=== PATIENT | female | born 1970 | race Caucasian/White ===

== ENCOUNTER → 2018-07-03 11:26 | Outpatient (CLI) | payer OTHER, SELFPAY ==
[2018-07-03 12:54] LABS: Erythrocyte Sedimentation Rate 7 MM/HR (0-20)
[2018-07-09 14:53] LABS: Rapid Plasma Reagin NON REACTIVE
[2018-07-23 13:01] LABS: Vit B12 Binding Capacity unsat 939 pg/mL (650-1340)
== END ==
PROVIDERS: PCP Family Medicine; Visit Provider Specialist
DX: R41.89 Other symptoms and signs involving cognitive functions and awareness (principal)
CPT/HCPCS: 36415; 82608; 85651; 86592

== ENCOUNTER → 2018-07-25 15:00 | Outpatient (CLI) | payer OTHER, SELFPAY | PROVIDERS: Family Provider Physical Medicine & Rehabilitation; PCP Family Medicine | DX: Z23 Encounter for immunization (principal) | CPT/HCPCS: 90471; 90686 ==

== ENCOUNTER → 2018-08-14 06:01 | Outpatient (CLI) | payer OTHER, SELFPAY ==
--- NOTE | 2018-08-14 06:06 | DI.RAD.S_ITS ---
PROCEDURE: XR CERVICAL SPINE 4V OR 5V INDICATIONS: Lumbar spondylolisthesis TECHNIQUE: 5 views of the cervical spine acquired. COMPARISON: [facility], MR, MR CERVICAL SPINE WO CON, 08/14/2018, 6:33. FINDINGS: Bones: No fractures or dislocations to the C7-T1 level. Oblique images demonstrate no bony foraminal stenoses. There is straightening of normal cervical curvature. Minimal disc space narrowing is present at C5-6. Right-sided foramina are patent. Left side is not well evaluated secondary to positioning. Soft tissues: No prevertebral soft tissue swelling. IMPRESSION: Straightening of normal cervical curvature with minimal degenerative change. Limited evaluation of the left neural foramina as above. Please see MR cervical spine report of 08/14/18 for further evaluation. Dictated by: Shara Carrasquillo M.D. on 08/14/2018 at 10:05 Approved by: Shara Carrasquillo M.D. on 08/14/2018 at 10:12
--- NOTE | 2018-08-14 06:06 | DI.RAD.S_ITS ---
PROCEDURE: XR LUMBAR SPINE MIN 4V INDICATIONS: Lumbar spondylolisthesis TECHNIQUE: 5 views of the lumbar spine acquired. COMPARISON: [facility], , L-SPINE 2-3 VIEWS, 12/19/2016, 9:12. FINDINGS: Bones: 5 nonrib-bearing vertebrae are present. There is trace retrolisthesis of L1 on L2, L2 and L3, L3 on L4, L4 on L5. There is a 3 mm anterior listhesis of L5 on S1 with pars defect. There is moderate disc space narrowing at L5-S1 as well as foraminal narrowing. No vertebral body compression fractures. No suspicious bony lesions. Soft tissues: Overlying bowel gas pattern is normal. No suspicious soft tissue calcifications. Flexion/extension: There is normal range of motion, with preserved normal alignment. IMPRESSION: Anterolithesis secondary to pars defect at L5 with disc and foraminal narrowing. Dictated by: Shara Carrasquillo M.D. on 08/14/2018 at 10:16 Approved by: Shara Carrasquillo M.D. on 08/14/2018 at 10:26
--- NOTE | 2018-08-14 06:06 | DI.MRI.S_ITS ---
PROCEDURE: MR CERVICAL SPINE WO CON INDICATIONS: Lumbar spondylolisthesis TECHNIQUE: Noncontrast sagittal T1 spin echo and T2 fast spin echo, sagittal STIR, foraminal oblique sagittal T2 fast spin echo, and axial gradient echo or T2 fast spin echo through the cervical spine. COMPARISON: [facility], CR, XR CERVICAL SPINE 4V OR 5V, 08/14/2018, 7:08. FINDINGS: Image quality: Excellent. Alignment and Curvature: There is normal bony alignment. There is straightening of normal cervical spine curvature. Bone Marrow: Marrow demonstrates normal overall signal. Spinal Cord: Visualized spinal cord has normal size and signal. No cerebellar tonsillar herniation. Paraspinous Soft Tissues: No paravertebral masses. Prevertebral soft tissues are normal in thickness. C2-C3: Normal appearance. C3-C4: Normal appearance. C4-C5: Normal appearance. C5-C6: Slight loss of disc signal. Minimal, diffuse disc bulge. No central stenosis. No neural foraminal narrowing. No neural impingement. C6-C7: Loss of disc signal. Mild loss of disc height. Moderate, diffuse disc bulge. Mild narrowing of the central canal. No neural foraminal narrowing. No neural impingement. C7-T1: Normal appearance. IMPRESSION: 1. Mild to moderate C6-C7 degenerative changes. Mild C5-C6 degenerative disc changes. 2. Mild C6-C7 central canal narrowing. 3. No neural foraminal narrowing. 4. No neural impingement. Dictated by: Leda Florian MD, PhD on 08/14/2018 at 10:18 Approved by: Leda Florian MD, PhD on 08/14/2018 at 10:29
--- NOTE | 2018-08-14 06:06 | DI.MRI.S_ITS ---
PROCEDURE: MR LUMBAR SPINE WO CON INDICATIONS: Lumbar spondylolisthesis TECHNIQUE: Noncontrast sagittal T1 spin echo and T2 fast echo, sagittal STIR, axial T1 and T2 fast spin echo through the lumbar spine. In cases with scoliosis, additional coronal T2 fast spin echo may be performed. COMPARISON: [facility], MR, L-SPINE WITHOUT CONTRAST, 06/27/2015, 17:42. [facility], CR, XR LUMBAR SPINE MIN 4V, 08/14/2018, 7:12. FINDINGS: Image quality: Excellent. Alignment and Curvature: There is trace L5-S1 anterolisthesis secondary to bilateral L5 pars interarticularis defects. Bone Marrow: Marrow is of normal overall signal. No acute vertebral body compression fractures. Spinal Cord: Conus medullaris terminates at the L1 level. Visualized cord demonstrates normal signal and size. Paraspinous Soft Tissues: No paravertebral masses. L1-L2: Slight loss of disc signal. Minimal, diffuse disc bulge. No central stenosis. No neural foraminal narrowing. No neural impingement. Focal high intensity zone within the posterior annulus compatible with a fissure. L2-L3: Normal appearance. L3-L4: Normal appearance. L4-L5: Loss of disc signal. Mild, diffuse disc bulge. Mild bilateral facet hypertrophy. No central stenosis. No neural foraminal narrowing. No neural impingement. Focal high intensity zone within the posterior annulus compatible with a fissure. L5-S1: Loss of disc signal. Minimal, diffuse disc bulge. Mild bilateral facet hypertrophy. No central stenosis. No neural foraminal narrowing. No neural impingement. Focal high intensity zone noted in the posterior annulus compatible with a fissure. IMPRESSION: 1. Trace L5-S1 isthmic spondylolisthesis. 2. Mild multilevel degenerative disc disease. 3. Mild multilevel facet arthropathy. 4. No central stenosis. 5. No neural foraminal narrowing. 6. No neural impingement. 7. L1-L2, L4-L5 and L5-S1 disc annulus fissures. Dictated by: Leda Florian MD, PhD on 08/14/2018 at 10:32 Approved by: Leda Florian MD, PhD on 08/14/2018 at 10:37
== END ==
PROVIDERS: Family Provider Family Medicine; PCP Family Medicine; Visit Provider Physical Medicine & Rehabilitation
DX: M43.16 Spondylolisthesis, lumbar region (principal); M50.322 Other cervical disc degeneration at C5-C6 level; M48.02 Spinal stenosis, cervical region; M51.36 Other intervertebral disc degeneration, lumbar region; M47.16 Other spondylosis with myelopathy, lumbar region; M48.07 Spinal stenosis, lumbosacral region
CPT/HCPCS: 72050; 72110; 72141; 72148

== ENCOUNTER → 2018-08-15 07:40 | Outpatient (CLI) | payer OTHER, SELFPAY ==
[2018-08-15 08:51] LABS: Erythrocyte Sedimentation Rate 13 MM/HR (0-20)
[2018-08-15 09:27] LABS: Cholesterol 119 mg/dL (140-199); HDL Cholesterol 43 mg/dL (40-60); LDL Cholesterol Calculated 52 mg/dL (<100); Triglycerides 120 mg/dL (35-150)
[2018-08-15 09:29] LABS: C-Reactive Protein Quant 1.7 mg/dL (<1.0)
[2018-08-15 09:32] LABS: Rheumatoid Factor < 8.6 IU/mL (<12.0)
[2018-08-15 09:42] LABS: Free T3, Triiodothyronine Free 3.46 pg/mL (2.77-5.27); Vitamin D 25 Hydroxy (D3) 48.1 ng/mL (30.0-100.0)
[2018-08-15 09:59] LABS: TSH w/ Reflex to FT4 0.05 uIU/mL (0.47-4.68)
[2018-08-15 10:26] LABS: Free T4, Direct Thyroxine 1.05 ng/dL (0.78-2.19)
[2018-08-17 18:38] LABS: ANA Screen, IFA Negative (Negative)
== END ==
PROVIDERS: Family Provider Physical Medicine & Rehabilitation; PCP Family Medicine; Visit Provider Family Medicine
DX: G43.719 Chronic migraine without aura, intractable, without status migrainosus (principal); M25.50 Pain in unspecified joint; M47.16 Other spondylosis with myelopathy, lumbar region; E03.9 Hypothyroidism, unspecified; E78.5 Hyperlipidemia, unspecified
CPT/HCPCS: 36415; 80061; 82306; 84439; 84443; 84481; 85651; 86038; 86140; 86430

== ENCOUNTER → 2018-09-03 09:04 | Outpatient (CLI) | payer OTHER, SELFPAY ==
--- NOTE | 2018-09-03 | DI.MG.S_ITS ---
BILATERAL DIGITAL SCREENING MAMMOGRAM 3D/2D WITH CAD: 09/03/2018 CLINICAL: Routine screening. Family history of breast cancer. Comparison is made to exams dated: 07/26/2017 mammogram, 07/10/2016 mammogram, and 01/13/2015 mammogram - [facility]. The tissue of both breasts is heterogeneously dense. This may lower the sensitivity of mammography. Current study was also evaluated with a Computer Aided Detection (CAD) system. No significant masses, calcifications, or other findings are seen in either breast. There has been no significant interval change. IMPRESSION: NEGATIVE There is no mammographic evidence of malignancy. A 1 year screening mammogram is recommended. This exam was interpreted at Station ID: [id number]. NOTE: For mammograms, a report in lay terms will be sent to the patient. Approximately 15% of breast malignancies will not be visualized mammographically. In the management of a palpable breast mass, a negative mammogram must not discourage biopsy of a clinically suspicious lesion. Electronically Signed By: Ama perry/sarai:09/03/2018 10:58:46 letter sent: Normal Exam ACR BI-RADS Category 1: Negative [id number]
== END ==
PROVIDERS: Family Provider Physical Medicine & Rehabilitation; PCP Family Medicine; Visit Provider Family Medicine
DX: Z80.3 Family history of malignant neoplasm of breast (principal)
CPT/HCPCS: 77063; 77067

== ENCOUNTER → 2018-11-20 14:57 | Outpatient (CLI) | payer OTHER, SELFPAY ==
--- NOTE | 2018-11-20 14:59 | DI.RAD.S_ITS ---
PROCEDURE: XR SHOULDER RT MIN 2V INDICATIONS: chan TECHNIQUE: 3 views of the shoulder were acquired. COMPARISON: None. FINDINGS: Bones: No fractures or dislocations. Moderate AC joint degeneration. Minimal glenohumeral spurring No suspicious bony lesions. Visualized ribs appear intact. Soft tissues: No suspicious soft tissue calcifications. IMPRESSION: Right shoulder joint degeneration as above. Dictated by: Sergio Reinoso M.D. on 11/20/2018 at 16:22 Approved by: Sergio Reinoso M.D. on 11/20/2018 at 16:23
--- NOTE | 2018-11-20 14:59 | DI.RAD.S_ITS ---
PROCEDURE: XR SHOULDER LT MIN 2V INDICATIONS: chan TECHNIQUE: 3 views of the shoulder were acquired. COMPARISON: [facility], CR, XR SHOULDER RT MIN 2V, 11/20/2018, 14:59. FINDINGS: Bones: No fractures or dislocations. No suspicious bony lesions. Visualized ribs appear intact. Mild AC and glenohumeral joints degeneration Soft tissues: No suspicious soft tissue calcifications. IMPRESSION: Mild left shoulder joint degeneration. Dictated by: Sergio Reinoso M.D. on 11/20/2018 at 16:24 Approved by: Sergio Reinoso M.D. on 11/20/2018 at 16:25
[2018-11-20 16:23] LABS: Thyroid Stimulating Hormone 0.02 uIU/mL (0.47-4.68)
== END ==
PROVIDERS: Family Provider Physical Medicine & Rehabilitation; PCP Family Medicine; Visit Provider Family Medicine
DX: M25.511 Pain in right shoulder (principal); M25.512 Pain in left shoulder; M19.011 Primary osteoarthritis, right shoulder; M19.012 Primary osteoarthritis, left shoulder; E03.9 Hypothyroidism, unspecified
CPT/HCPCS: 36415; 73030; 84443

== ENCOUNTER → 2019-01-29 10:44 | Outpatient (CLI) | payer OTHER, SELFPAY ==
[2019-01-29 13:02] LABS: Thyroid Stimulating Hormone 0.08 uIU/mL (0.47-4.68)
== END ==
PROVIDERS: Family Provider Psychiatry & Neurology Psychiatry; PCP Family Medicine; Visit Provider Family Medicine
DX: Z86.39 Personal history of other endocrine, nutritional and metabolic disease (principal)
CPT/HCPCS: 36415; 84443

== ENCOUNTER 2019-03-11 14:05 | Outpatient (CLI) | payer OTHER, SELFPAY ==
[2019-03-11] VITALS (9 sets, daily range): BP systolic 128–146; BP diastolic 70–90; PULSE 93–103; RESP 16–20; TEMP 36.4; O2SAT 95–98
--- NOTE | 2019-03-11 14:06 | DI.RAD.S_ITS ---
PROCEDURE: PAIN L/S FACET INJ/BLK 1ST SHERRY COMPARISON: None. INDICATIONS: SPONDYLOSIS Fluoroscopic spot filming was performed to verify placement of spinal needles at the L4-L5 and L5-S1 level(s), as labeled on the films. Appropriate location(s) of the needle tip(s) was confirmed by injection of iodinated contrast. Dictated by: Sergio Reinoso M.D. on 03/11/2019 at 16:16 Approved by: Sergio Reinoso M.D. on 03/11/2019 at 16:16
[2019-03-11] MEDS: MIDAZOLAM 5 MG/5 ML VIAL IV (15:27)
[2019-03-11] MEDS: fentaNYL 100 MCG/2 ML INJ 50 MCG IV (15:27)
[2019-03-11] MEDS: LIDOCAINE 1% 20 ML INJ 10 ML INJ (15:38)
[2019-03-11] MEDS: BETAMETHASONE 30 MG/5 ML MDV 12 MG INJ (15:38)
[2019-03-11] MEDS: BUPIVACAINE 0.5% (PF) VIAL 2 ML INJ (15:38)
--- NOTE | 2019-03-11 15:43 | PC.NURSE ---
ASSISTING PT OFF TABLE AND TRANSPORTING TO POST PROC AREA IN STABLE CONDITION
--- NOTE | 2019-03-11 15:52 | P.PCN_ITS ---
Procedures Date/Time Date of procedure: 03/11/19 Time of procedure: 15:50 General Procedure description: PREOP DIAGNOSIS 1. FACET ARTHROPATHY 2. AXIAL LBP 3. MULTILEVEL DDD POST OP DIAGNOSIS 1. FACET ARTHROPATHY 2. AXIAL LBP 3. MULTILEVEL DDD PROCEDURES 1. FLUORSCOPICALLY GUIDED CONTRAST CONTROLLED FACET JOINT INJECTIONS BILATERAL L4/5, L5/S1 PHYSICIAN: Ezequiel Leavitt, DO MAJOR Lilli is referred by Dr. Newsome for treatment of Axial LBP FINDINGS Multilevel Facet Arthropathy with Clinically significant axial LBP DESCRIPTION OF PROCEDURE Fluoroscopically guided, contrast-controlled bilateral L4/5, L5/S1 facet joint injections. Following denial of allergy and review of potential side effects and complications, including, but not necessarily limited to, infection, allergic reaction, local tissue breakdown, stroke, temporary or permanent nerve injury, paralysis, and possible , the patient indicated that the patient understood and agreed to proceed. An informed consent document was signed by the patient, witnessed by a nurse, and placed in the patient's chart. Additionally, other treatment options including medications, modalities, and physical therapy were reviewed with the patient. After review of previous anaesthesic history and IV conscious sedation the patient was deemed safe to proceed with todays procedure with IV conscious sedation as ASA class II designation. Safety time-out was performed to confirm patient ID, procedure to be performed and site of procedure. IV sedation was accomplished with a combination of 5mg of Versed and Fentanyl was administered by the RN after DO order, titrated to patient comfort during the course of the procedure while the patient remained responsive to all verbal commands In the prone position, following sterile prep and drape of the lumbar region, the posterior aspect of the L4/5, L5/S1 facet joints were identified fluoroscopically. The skin was anesthetized via a 25-gauge 1.5-inch needle with 1% lidocaine solution into the corresponding facet joints. At this point, a 22- gauge 3.5-inch spinal needle was atraumatically introduced and advanced under fluoroscopic guidance into the corresponding facet joints. Following negative aspiration, injections of approximately 0.2-cc of Isovue 200 confirmed interarticular placement without vascular uptake. The identical procedure was then performed at the L4/5, L5/S1 facet joints on the left. Radiological data, including multiple fluoroscopic views of the lumbosacral spine, reveal a spinal needle at the L4/5, L5/S1 facet joints bilaterally. Subsequent views show flow of contrast material both superiorly and inferiorly within the joint space without vascular or intrathecal uptake. At this point, a total of 0.5 cc including a mixture of 0.25cc Marcaine and 0.25cc betamethasone was injected without complication into each of the corresponding facet joints. The patient tolerated the procedure well without signs or symptoms of complications prior to transfer to the recovery area continued monitoring without incident. The patient was then transferred to the recovery area where they were observed for an appropriate period of time after the injection. The patient reported a VAS score of 7 prior to the procedure and a post- procedure VAS of 0. Total Fluoroscopy Time: 20.3 seconds Total Conscious Sedation Time: 24min POST OP INSTRUCTIONS The patient was provided a Pain Log to continue to record their response to the target-specific procedure prior to follow-up visit with their referring physician. Additionally, specific post-injection care instructions and a contact number to our office were provided if concerns arise regarding possible complications associated with the procedure are suspected. Ezequiel Leavitt DO Complications: none
--- NOTE | 2019-03-11 16:15 | PC.NURSE ---
Pt returned from post procedure awake and alert. Pt able to transfer self from W/C to chair with standby assist. Resumed monitoring from Anusha [facility].
== END 2019-03-11 16:15 ==
LOC: RAD 14:05
PROVIDERS: Family Provider Physical Medicine & Rehabilitation; PCP Family Medicine; Visit Provider Physical Medicine & Rehabilitation
DX: M47.817 Spondylosis without myelopathy or radiculopathy, lumbosacral region (principal); M47.816 Spondylosis without myelopathy or radiculopathy, lumbar region; M54.5 Low back pain; M51.36 Other intervertebral disc degeneration, lumbar region; M51.37 Other intervertebral disc degeneration, lumbosacral region
CPT/HCPCS: 64493; 64494; 99152; J0702; J2250; J3010

== ENCOUNTER → 2019-04-15 10:36 | Outpatient (CLI) | payer OTHER, SELFPAY ==
[2019-04-15 11:06] LABS: Add Manual Diff / Slide Review NO; Basophils Absolute Auto 100 /uL (0-100); Basophils Percent Auto 1.3 % (0-2); Eosinophils Absolute Auto 800 /uL (0-450); Eosinophils Percent Auto 8.1 % (2-4); Hematocrit 37.7 % (36-46); Lymphocytes Absolute Auto 3700 /uL (1100-4500); Lymphocytes Percent Auto 38.5 % (25-40); Mean Corpuscular HGB Conc 34.4 % (30-36); Mean Corpuscular Hemoglobin 29.2 PG (26-34); Mean Corpuscular Volume 85.1 fL (80-100); Monocytes Absolute Auto 700 /uL (0-900); Monocytes Percent Auto 7.7 % (3-14); Neutrophils Absolute Auto 4200 /uL (1500-7000); Neutrophils Percent Auto 44.4 % (50-75); Platelet Count 326 X10^3/uL (150-400); Red Blood Cell Count 4.44 X10^6/uL (4.0-5.2); Red Cell Distribution Width 13.5 % (11.6-14.8); White Blood Cell Count 9.5 X10^3/uL (4.5-11.0)
[2019-04-15 11:44] LABS: Free T3, Triiodothyronine Free 3.88 pg/mL (2.77-5.27); Free T4, Direct Thyroxine 1.25 ng/dL (0.78-2.19)
[2019-04-15 11:58] LABS: Thyroid Stimulating Hormone 2.25 uIU/mL (0.47-4.68)
== END ==
PROVIDERS: PCP Family Medicine; Visit Provider Family Medicine
DX: E03.9 Hypothyroidism, unspecified (principal)
CPT/HCPCS: 36415; 84439; 84443; 84481; 85025

== ENCOUNTER 2019-07-13 10:00 | Outpatient (RCR) | payer OTHER, SELFPAY ==
--- NOTE | 2018-10-23 15:54 | PT.OIE ---
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) ADHD (attention deficit hyperactivity disorder) (Chronic 09/05/05) Acne (Chronic 1982) Allergic rhinitis (Chronic) Bipolar disorder (Chronic 01/01/06) Chronic back pain (Chronic 1987) Chronic headaches (Chronic) Female hypogonadism (Chronic) GERD (gastroesophageal reflux disease) (Chronic) Hayfever (Chronic) Hypothyroidism (Chronic 06/19/07) Low testosterone level in female (Chronic 10/15/07) Lumbar spine pain (Chronic) Recurrent sinusitis (Chronic) Rosacea (Chronic 2000) Urinary incontinence (Chronic) Anemia (Resolved) Chicken pox (Resolved 1975) Colon polyps (Resolved 01/11/11) Fibroids (Resolved) History of heavy periods (Resolved) Irregular periods/menstrual cycles (Resolved) Painful menstrual periods (Resolved) Pancreatitis (Resolved) Sleep apnea (Resolved 08/12/97) Throat infection (Resolved) Past Surgical History (Last Reviewed 09/18/18 @ 08:56 by Maldonado Ashraf PA-C) Anesthesia complication (Resolved) History of oral surgery (Resolved) History of stress incontinence procedure using tension free vaginal tape (Resolved 04/2006) Status post colonoscopy (Resolved) Status post laparoscopy (Resolved 09/16/00) Status post tonsillectomy and adenoidectomy (Resolved 10/18/03) Status post vaginal hysterectomy (Resolved 07/2005) Provider Visit Care Team Role Provider Type Ga Newsome MD Primary Care Provider Physician Specialty: Family Practice Address: [address] [place] [address], [id number] Email: [email or web address] Ezequiel Leavitt DO Attending Provider Physician Family Provider Specialty: Physiatry Pain Management Address: [address] [place] [address], [id number] Email: Physical Therapy Initial Evaluation PT-OP-A Visit Information Start: 10/21/18 21:14 Freq: Status: Active Protocol: Document 10/23/18 08:15 LRN (Rec: 10/23/18 09:09 LRN [id number]) Out-Patient Physical Therapy Visit Information Visit Information Visit Type Initial Evaluation Visit Start Time 08:15 Visit Stop Time 09:09 Total Visit Minutes 54 Visit Number 1 Number of RAILROAD INSPECTOR Visits 0 Evaluation Information Evaluation Date 10/23/18 Precautions Precautions Lifting restriction is #25 post bladder surgery (repeat bladder sling surgery) until . Bipolar/ADD. PT-OP-B Current Condition Start: 10/21/18 21:14 Freq: Status: Active Protocol: Document 10/23/18 08:15 LRN (Rec: 10/23/18 09:09 LRN [id number]) Current Condition History of Current Condition Onset Date 2 yrs ago Current Complaints Pain along the full back, especially R side in LB, and feet plantar. History of Current Condition Back pain off/on due to accidents in childhood. Has had injections in the back for the past 5 yrs with good results, but the last one was 2 yrs ago and wasn't helpful. Was carrying a sick girl up stairs (#90) and tweeked her back. She sought an injection then, but was told she had to do therapy before receiving another injection. Pain in feet throbbing. Prior Treatments and Tests Cortisone injections. Massage every 3-4 weeks, accupuncture . Heating pad every morning and sleeps on heating pad, hot tub, NSAIDs, Vicodine when really bad. Massage monthly and accupuncture when affordable. PRIOR RECORD REVIEW: Lumbosacral spondylosis with myelopathy, Lumbar Facet arthropathy, Cervical spondylosis, HNP - Cervical. Future Testing and Treatments Planned Would like to go to chiropractor. Treatment Goals Patient/Caregiver Goals Pt Goals: Strengthen core around areas damaged or hurt. Learn proper body mechanics. Eliminate the sharp shooting pain. Don't want to have to change life because of the pain. Wants to go to bed because tired, not hurt. Pain rated 1-2/10. 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 Baseline Function- Recreation/Hobbies Walked trails with friends. Current Functional Impairments (Reported) Functional Limitations- ADL's Independent. Must sit to put socks on and lean against shower to wash bottoms of feet . Functional Limitations- Recreation/ Can no longer walk trails Hobbies because of back pain and out of shape (SOB). 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 PT-OP-C Subjective Start: 10/21/18 21:14 Freq: Status: Active Protocol: Document 10/23/18 08:15 LRN (Rec: 10/23/18 09:09 LRN [id number]) Patient Questionnaires Oswestry Low Back Index Oswestry Score 19/50 Oswestry Impairment 20 to 39% Impaired (Score 20- 39) OP-PT Pain Assessment Pain Assessment Grid Paper Pain Assessment Grid Completed Yes Home Pain Medication Use Pain Medications Used Yes Home Pain Medication Frequency prn Comments Pain Comments Upper back pain rated 3/10 chronic, constant throbbing ache except when shoulders catch it is sharp. Mid back pain is rated 2-3/10 intermittent ache. Low back is rated 4-5/10 constant ache on the left, sharp throbbing on the right. Periodically radiates into the buttock and right posterior thigh. Has radiated 2x down the left when it was really bad. PT-OP-F Manual Assessment Start: 10/21/18 21:14 Freq: Status: Active Protocol: Document 10/23/18 08:15 LRN (Rec: 10/23/18 15:03 LRN [id number]) Manual Assessments Soft Tissue Assessment Soft Tissue Mobility Assessment Increased tension in area of R paraspinals of L1-L5. Umbilicus shifted right. Joint Mobility Assessment Joint Mobility Assessment Pain with PA mild pressure at spinous processes of entire cervical, thoracic and lumbar spine in the area of T3-T5 and L1-L5 with greatest tenderness at T5 & L3. PT-OP-H Neuro Start: 10/21/18 21:14 Freq: Status: Active Protocol: Document 10/23/18 08:15 LRN (Rec: 10/23/18 15:03 LRN [id number]) Sensation Evaluation Gross Sensation Gross Sensation WNL PT-OP-J Posture/Palpation/Skin Start: 10/21/18 21:14 Freq: Status: Active Protocol: Document 10/23/18 08:15 LRN (Rec: 10/23/18 15:03 LRN [id number]) Posture Evaluation Darrell Postural Classification System Darrell Postural Classifications Anterior/Posterior Vertebral Compression Test 2 Elbow Flexion Test 2 Comments Posture Comments Standing Posture: L shoulder and scapula elevated; reverse curvature at T3-T7, increased lordosis, R PSIS low, R ASIS high (R innominate posteriorly rotated). PT-OP-K Range of Motion Start: 10/21/18 21:14 Freq: Status: Active Protocol: Document 10/23/18 08:15 LRN (Rec: 10/23/18 15:03 LRN [id number]) Cervical Spine Range of Motion Cervical Spine Active Degrees Testing Position Sitting Flexion 56 Extension 45 Rotation Left 65 Rotation Right 50 Lumbar Spine Range of Motion Lumbar Spine Active Degrees Testing Position Standing Flexion 15 Extension 5 Lateral Flexion Left 10 Lateral Flexion Right 15 ROM Limitations Pain Comments Flex/Ext above is painfree range. Flex AROM tolerated is 32 deg' s. Rotation approximated is 30 deg's left, 45 deg's right. PT-OP-M Strength Start: 10/21/18 21:14 Freq: Status: Active Protocol: Document 10/23/18 08:15 LRN (Rec: 10/23/18 15:03 LRN [id number]) Trunk Strength Trunk Manual Muscle Testing Comments Deferred until next visit due to pain. Hip Strength Hip Manual Muscle Testing Right Flexion (L2) 3 Fair Extension (S1) 3 Fair Comments Hip strength is 5/5 except as noted above Left Extension (S1) 3 Fair Comments Hip strength is 5/5 except as noted above Knee Strength Knee Manual Muscle Testing Right Comments Generally 5/5. Left Comments Generally 3/5. PT-OP-Q Treatments Start: 10/21/18 21:14 Freq: Status: Active Protocol: Document 10/23/18 08:15 LRN (Rec: 10/23/18 15:03 LRN [id number]) Self-Care/Home Management Treatment Education Patient Education Body Mechanics Pain Management Other Education Briefly discussed hip hinging and use of LE's for proper back care and body mechanics. Reviewed lifting limitations and proper lifting using legs and hinging at hip vs the back . Activities Self-Care/Home Management Activities I/S pt to try use of ice, then heat at home to see if one is better than other.and to start in an area of the spine PT-OP-T Assessment and Plan Start: 10/21/18 21:14 Freq: Status: Active Protocol: Document 10/23/18 08:15 LRN (Rec: 10/23/18 09:09 LRN [id number]) Physical Therapy Assessment Rehab Potential Rehabilitation Potential Good Evaluation Complexity Number of Personal Factors/Comorbidities 3 or More Number of Body Systems Impaired 3 Clinical Presentation at Evaluation Evolving Impairments Impairments Activity Tolerance Functional Activities Functional Mobility Pain Posture ROM Strength Other Concerns Age Related Concerns Effect on work and home life. Barriers to Rehabilitation Chronicity of condition. Psychological disorder (per pt : Bipolar, ADD) Goals Four Impairment Intermittent Mid back pain rated 2-3/10 Senior Living Goal (LTG) Decrease Mid back pain to 1-2/ 10 for tolerable pain prior to going to bed at night and for greater comfort in bed at night. LTG Duration 01/16/19 Three Impairment Constant Low Back Pain, rated 4-5/10, sharp-Right, ache-Left . Short Term Goal (STG) Initiate a self care DLS program. STG Duration 11/14/18 Senior Living Goal (LTG) Pt will be able to move functionally with minimal onset of R sharp stabbing pain and decreased overall pain by 50%. LTG Duration 12/26/18 Two Impairment Lacks proper body mechanics training Short Term Goal (STG) Pt will be educated in proper body mechanics for lifting, moving objects and functional activities. STG Duration 11/14/18 One Impairment Lack appropriate HEP Senior Living Goal (LTG) Pt will be independent on a self chcf program. LTG Duration 01/16/19 Assessment Summary Assessment Pt is a 47 year old female with chronic neck, midback and low back pain that has been in a state of exacerbation for the past 2 years. The pt is receiving therapy in hopes of not needing another cortisone injection. 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 She presents with significant postural changes and soft tissue dysfunction as well as generalized decreased in strength and poor core stability. Her pain was reproduced with PA pressure at L3 indicating mechanical involvement of the lumbar spine. See history of current condition for problem list. Pt will benefit from some of her therapy time in aquatic therapy as well as land therapy. The pt will benefit from skilled physical therapy to improve mobility, improve strength and function with less pain, manual therapy and modalities for pain management , and education in proper body mechanics, functional mobility, and a home program. Physical Therapy Plan Frequency and Duration Frequency of Treatment 2x/Week Plan of Care Start Date 10/23/18 Plan of Care End Date 01/16/19 Therapeutic Interventions Therapeutic Interventions Aquatic Therapy Balance Training Home Exercise Program Joint Mobilizations Manual Therapy Neuromuscular Re-education Patient/Caregiver Education Self-Care/Home Management Soft Tissue Mobilization Taping Therapeutic Activities Therapeutic Exercises Modalities Cold Pack/Ice Massage Electric Stimulation Hot Packs Ultrasound Other Therapeutic Interventions Laser therapy Next Visit Focus/Plan Next Note Type Treatment Note Next Visit Plan Body mechanics training ( lifting, moving objects, functional activities), progress onto a core strengthening (DLS) program and end with manual therapy and modalities to decreased pain.
--- NOTE | 2018-10-23 15:54 | PT.OPPOC ---
Current Diagnoses Other spondylosis with myelopathy, lumbar region (10/23/18) Spondylosis without myelopathy or radiculopathy, cervical region (10/23/18) Spondylosis without myelopathy or radiculopathy, lumbar region (10/23/18) Spondylosis without myelopathy or radiculopathy, lumbosacral region (10/23/18) Other cervical disc displacement, unspecified cervical region (10/23/18) Provider Visit Care Team Role Provider Type Ga Newsome MD Primary Care Provider Physician Specialty: Family Practice Address: [address] [place] [id number] Email: [email or web address] Ezequiel Leavitt DO Attending Provider Physician Family Provider Specialty: Physiatry Pain Management Address: [address] [place] [address], [id number] Email: Plan Of Care PT-OP-T Assessment and Plan Start: 10/21/18 21:14 Freq: Status: Active Protocol: Document 10/23/18 08:15 LRN (Rec: 10/23/18 09:09 LRN [id number]) Physical Therapy Assessment Rehab Potential Rehabilitation Potential Good Evaluation Complexity Number of Personal Factors/Comorbidities 3 or More Number of Body Systems Impaired 3 Clinical Presentation at Evaluation Evolving Impairments Impairments Activity Tolerance Functional Activities Functional Mobility Pain Posture ROM Strength Other Concerns Age Related Concerns Effect on work and home life. Barriers to Rehabilitation Chronicity of condition. Psychological disorder (per pt : Bipolar, ADD) Goals Four Impairment Intermittent Mid back pain rated 2-3/10 Assisted Goal (LTG) Decrease Mid back pain to 1-2/ 10 for tolerable pain prior to going to bed at night and for greater comfort in bed at night. LTG Duration 01/16/19 Three Impairment Constant Low Back Pain, rated 4-5/10, sharp-Right, ache-Left . Short Term Goal (STG) Initiate a self care DLS program. STG Duration 11/14/18 Assisted Goal (LTG) Pt will be able to move functionally with minimal onset of R sharp stabbing pain and decreased overall pain by 50%. LTG Duration 12/26/18 Two Impairment Lacks proper body mechanics training Short Term Goal (STG) Pt will be educated in proper body mechanics for lifting, moving objects and functional activities. STG Duration 11/14/18 One Impairment Lack appropriate HEP Assisted Goal (LTG) Pt will be independent on a self jail program. LTG Duration 01/16/19 Assessment Summary Assessment Pt is a 47 year old female with chronic neck, midback and low back pain that has been in a state of exacerbation for the past 2 years. The pt is receiving therapy in hopes of not needing another cortisone injection. 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 She presents with significant postural changes and soft tissue dysfunction as well as generalized decreased in strength and poor core stability. Her pain was reproduced with PA pressure at L3 indicating mechanical involvement of the lumbar spine. See history of current condition for problem list. Pt will benefit from some of her therapy time in aquatic therapy as well as land therapy. The pt will benefit from skilled physical therapy to improve mobility, improve strength and function with less pain, manual therapy and modalities for pain management , and education in proper body mechanics, functional mobility, and a home program. Physical Therapy Plan Frequency and Duration Frequency of Treatment 2x/Week Plan of Care Start Date 10/23/18 Plan of Care End Date 01/16/19 Therapeutic Interventions Therapeutic Interventions Aquatic Therapy Balance Training Home Exercise Program Joint Mobilizations Manual Therapy Neuromuscular Re-education Patient/Caregiver Education Self-Care/Home Management Soft Tissue Mobilization Taping Therapeutic Activities Therapeutic Exercises Modalities Cold Pack/Ice Massage Electric Stimulation Hot Packs Ultrasound Other Therapeutic Interventions Laser therapy Next Visit Focus/Plan Next Note Type Treatment Note Next Visit Plan Body mechanics training ( lifting, moving objects, functional activities), progress onto a core strengthening (DLS) program and end with manual therapy and modalities to decreased pain. Plan of Care Dates Plan of Care Start Date 10/23/18 Plan of Care End Date 01/16/19 Please Sign and Return: I have reviewed this Plan of Care and certify that the skilled therapy services above are required to meet the patient?s needs. Physician Signature Date Printed Name and Credentials Clinical Instructor Signature Printed Name and Credentials
--- NOTE | 2018-11-19 10:40 | PT.OTN ---
Current Diagnoses Other spondylosis with myelopathy, lumbar region (11/18/18) Spondylosis without myelopathy or radiculopathy, cervical region (11/18/18) Spondylosis without myelopathy or radiculopathy, lumbar region (11/18/18) Spondylosis without myelopathy or radiculopathy, lumbosacral region (11/18/18) Other cervical disc displacement, unspecified cervical region (11/18/18) Physical Therapy Treatment Note PT-OP-A Visit Information Start: 10/21/18 21:14 Freq: Status: Active Protocol: Document 11/18/18 13:45 AMH (Rec: 11/19/18 10:38 AMH [email or web address]) Out-Patient Physical Therapy Visit Information Visit Information Visit Type Treatment Note Visit Start Time 13:45 Visit Stop Time 14:30 Total Visit Minutes 45 Visit Number 2 Number of TUBE MAN Visits 0 Evaluation Information Evaluation Date 10/23/18 PT-OP-B Current Condition Start: 10/21/18 21:14 Freq: Status: Active Protocol: Document 10/23/18 08:15 LRN (Rec: 10/23/18 09:09 LRN [id number]) Current Condition History of Current Condition Onset Date 2 yrs ago Current Complaints Pain along the full back, especially R side in LB, and feet plantar. History of Current Condition Back pain off/on due to accidents in childhood. Has had injections in the back for the past 5 yrs with good results, but the last one was 2 yrs ago and wasn't helpful. Was carrying a sick girl up stairs (#90) and tweeked her back. She sought an injection then, but was told she had to do therapy before receiving another injection. Pain in feet throbbing. Prior Treatments and Tests Cortisone injections. Massage every 3-4 weeks, accupuncture . Heating pad every morning and sleeps on heating pad, hot tub, NSAIDs, Vicodine when really bad. Massage monthly and accupuncture when affordable. PRIOR RECORD REVIEW: Lumbosacral spondylosis with myelopathy, Lumbar Facet arthropathy, Cervical spondylosis, HNP - Cervical. Future Testing and Treatments Planned Would like to go to chiropractor. Treatment Goals Patient/Caregiver Goals Pt Goals: Strengthen core around areas damaged or hurt. Learn proper body mechanics. Eliminate the sharp shooting pain. Don't want to have to change life because of the pain. Wants to go to bed because tired, not hurt. Pain rated 1-2/10. 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 Baseline Function- Recreation/Hobbies Walked trails with friends. Current Functional Impairments (Reported) Functional Limitations- ADL's Independent. Must sit to put socks on and lean against shower to wash bottoms of feet . Functional Limitations- Recreation/ Can no longer walk trails Hobbies because of back pain and out of shape (SOB). 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 PT-OP-C Subjective Start: 10/21/18 21:14 Freq: Status: Active Protocol: Document 11/18/18 13:45 AMH (Rec: 11/19/18 10:38 AMH [email or web address]) OP-PT Subjective Patient Comments Patient Comments Lilli reports no change in symptoms since her evaluation on 10/23/18 PT-OP-F Manual Assessment Start: 10/21/18 21:14 Freq: Status: Active Protocol: Document 10/23/18 08:15 LRN (Rec: 10/23/18 15:03 LRN [id number]) Manual Assessments Soft Tissue Assessment Soft Tissue Mobility Assessment Increased tension in area of R paraspinals of L1-L5. Umbilicus shifted right. Joint Mobility Assessment Joint Mobility Assessment Pain with PA mild pressure at spinous processes of entire cervical, thoracic and lumbar spine in the area of T3-T5 and L1-L5 with greatest tenderness at T5 & L3. PT-OP-H Neuro Start: 10/21/18 21:14 Freq: Status: Active Protocol: Document 10/23/18 08:15 LRN (Rec: 10/23/18 15:03 LRN [id number]) Sensation Evaluation Gross Sensation Gross Sensation WNL PT-OP-J Posture/Palpation/Skin Start: 10/21/18 21:14 Freq: Status: Active Protocol: Document 10/23/18 08:15 LRN (Rec: 10/23/18 15:03 LRN [id number]) Posture Evaluation Darrell Postural Classification System Darrell Postural Classifications Anterior/Posterior Vertebral Compression Test 2 Elbow Flexion Test 2 Comments Posture Comments Standing Posture: L shoulder and scapula elevated; reverse curvature at T3-T7, increased lordosis, R PSIS low, R ASIS high (R innominate posteriorly rotated). PT-OP-K Range of Motion Start: 10/21/18 21:14 Freq: Status: Active Protocol: Document 10/23/18 08:15 LRN (Rec: 10/23/18 15:03 LRN [id number]) Cervical Spine Range of Motion Cervical Spine Active Degrees Testing Position Sitting Flexion 56 Extension 45 Rotation Left 65 Rotation Right 50 Lumbar Spine Range of Motion Lumbar Spine Active Degrees Testing Position Standing Flexion 15 Extension 5 Lateral Flexion Left 10 Lateral Flexion Right 15 ROM Limitations Pain Comments Flex/Ext above is painfree range. Flex AROM tolerated is 32 deg' s. Rotation approximated is 30 deg's left, 45 deg's right. PT-OP-M Strength Start: 10/21/18 21:14 Freq: Status: Active Protocol: Document 10/23/18 08:15 LRN (Rec: 10/23/18 15:03 LRN [id number]) Trunk Strength Trunk Manual Muscle Testing Comments Deferred until next visit due to pain. Hip Strength Hip Manual Muscle Testing Right Flexion (L2) 3 Fair Extension (S1) 3 Fair Comments Hip strength is 5/5 except as noted above Left Extension (S1) 3 Fair Comments Hip strength is 5/5 except as noted above Knee Strength Knee Manual Muscle Testing Right Comments Generally 5/5. Left Comments Generally 3/5. PT-OP-Q Treatments Start: 10/21/18 21:14 Freq: Status: Active Protocol: Document 11/18/18 13:45 AMH (Rec: 11/19/18 10:38 AMH [email or web address]) Therapeutic Exercises Supine Exercises 2 Supine Exercise Name Transverse abdominal faciitation with marches 1 Supine Exercise Name stretches: SKTC, DKTC, Happy baby, hamstring stretch with strap, figure 4 Other Exercises 5 Other Exercise Name half kneeling hip flexor stretch 4 Other Exercise Name jillian pose 3 Other Exercise Name cat cow and wag the tail sidebends Reps/Minutes x 10 reps 2 Other Exercise Name quadraped TA with opposite arm lifts Reps/Minutes x 10 reps 1 Other Exercise Name quadraped TA facilitation Reps/Minutes x 10 reps with the breath Self-Care/Home Management Treatment Education Patient Education Home Exercise Program Other Education home exercise program given to patient (see chart) PT-OP-T Assessment and Plan Start: 10/21/18 21:14 Freq: Status: Active Protocol: Document 11/18/18 13:45 AMH (Rec: 11/19/18 10:38 AMH [email or web address]) Physical Therapy Assessment Assessment Summary Assessment MRI results pulled up that show mild multi level DDD, mild facet arthropathy, L1-2, L4-5, L5-S1 disc annulus fissures Lilli had not yet started on a home program so today we started her with basic stretches for her low back. I also began core stabilization which is very difficult for her as she has a difficult time recruiting her TA musculature. She tends to do better in a prone positions for TA recruitment Physical Therapy Plan Frequency and Duration Frequency of Treatment 2x/Week Plan of Care Start Date 10/23/18 Plan of Care End Date 01/16/19 Therapeutic Interventions Therapeutic Interventions Aquatic Therapy Balance Training Home Exercise Program Joint Mobilizations Manual Therapy Neuromuscular Re-education Patient/Caregiver Education Self-Care/Home Management Soft Tissue Mobilization Taping Therapeutic Activities Therapeutic Exercises Modalities Cold Pack/Ice Massage Electric Stimulation Hot Packs Ultrasound Other Therapeutic Interventions Laser therapy Next Visit Focus/Plan Next Note Type Treatment Note Next Visit Plan review HEP and progress stabilization as Lilli can tolerate
--- NOTE | 2018-11-26 11:02 | PT.OTN ---
Current Diagnoses Other spondylosis with myelopathy, lumbar region (11/26/18) Spondylosis without myelopathy or radiculopathy, cervical region (11/26/18) Spondylosis without myelopathy or radiculopathy, lumbar region (11/26/18) Spondylosis without myelopathy or radiculopathy, lumbosacral region (11/26/18) Other cervical disc displacement, unspecified cervical region (11/26/18) Physical Therapy Treatment Note PT-OP-A Visit Information Start: 10/21/18 21:14 Freq: Status: Active Protocol: Document 11/26/18 10:57 AMH (Rec: 11/26/18 11:02 AMH [email or web address]) Out-Patient Physical Therapy Visit Information Visit Information Visit Type Treatment Note Visit Start Time 09:00 Visit Stop Time 09:45 Total Visit Minutes 45 Visit Number 3 Number of PHOTOGRAPHER STILL Visits 0 PT-OP-B Current Condition Start: 10/21/18 21:14 Freq: Status: Active Protocol: Document 10/23/18 08:15 LRN (Rec: 10/23/18 09:09 LRN [id number]) Current Condition History of Current Condition Onset Date 2 yrs ago Current Complaints Pain along the full back, especially R side in LB, and feet plantar. History of Current Condition Back pain off/on due to accidents in childhood. Has had injections in the back for the past 5 yrs with good results, but the last one was 2 yrs ago and wasn't helpful. Was carrying a sick girl up stairs (#90) and tweeked her back. She sought an injection then, but was told she had to do therapy before receiving another injection. Pain in feet throbbing. Prior Treatments and Tests Cortisone injections. Massage every 3-4 weeks, accupuncture . Heating pad every morning and sleeps on heating pad, hot tub, NSAIDs, Vicodine when really bad. Massage monthly and accupuncture when affordable. PRIOR RECORD REVIEW: Lumbosacral spondylosis with myelopathy, Lumbar Facet arthropathy, Cervical spondylosis, HNP - Cervical. Future Testing and Treatments Planned Would like to go to chiropractor. Treatment Goals Patient/Caregiver Goals Pt Goals: Strengthen core around areas damaged or hurt. Learn proper body mechanics. Eliminate the sharp shooting pain. Don't want to have to change life because of the pain. Wants to go to bed because tired, not hurt. Pain rated 1-2/10. 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 Baseline Function- Recreation/Hobbies Walked trails with friends. Current Functional Impairments (Reported) Functional Limitations- ADL's Independent. Must sit to put socks on and lean against shower to wash bottoms of feet . Functional Limitations- Recreation/ Can no longer walk trails Hobbies because of back pain and out of shape (SOB). 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 PT-OP-C Subjective Start: 10/21/18 21:14 Freq: Status: Active Protocol: Document 11/26/18 10:57 AMH (Rec: 11/26/18 11:02 AMH [email or web address]) OP-PT Subjective Patient Comments Patient Comments pt reports she has been working on her stretches in bed. She notes she has a referral for her shoulder as well. PT-OP-F Manual Assessment Start: 10/21/18 21:14 Freq: Status: Active Protocol: Document 10/23/18 08:15 LRN (Rec: 10/23/18 15:03 LRN [id number]) Manual Assessments Soft Tissue Assessment Soft Tissue Mobility Assessment Increased tension in area of R paraspinals of L1-L5. Umbilicus shifted right. Joint Mobility Assessment Joint Mobility Assessment Pain with PA mild pressure at spinous processes of entire cervical, thoracic and lumbar spine in the area of T3-T5 and L1-L5 with greatest tenderness at T5 & L3. PT-OP-H Neuro Start: 10/21/18 21:14 Freq: Status: Active Protocol: Document 10/23/18 08:15 LRN (Rec: 10/23/18 15:03 LRN [id number]) Sensation Evaluation Gross Sensation Gross Sensation WNL PT-OP-J Posture/Palpation/Skin Start: 10/21/18 21:14 Freq: Status: Active Protocol: Document 10/23/18 08:15 LRN (Rec: 10/23/18 15:03 LRN [id number]) Posture Evaluation Darrell Postural Classification System Darrell Postural Classifications Anterior/Posterior Vertebral Compression Test 2 Elbow Flexion Test 2 Comments Posture Comments Standing Posture: L shoulder and scapula elevated; reverse curvature at T3-T7, increased lordosis, R PSIS low, R ASIS high (R innominate posteriorly rotated). PT-OP-K Range of Motion Start: 10/21/18 21:14 Freq: Status: Active Protocol: Document 10/23/18 08:15 LRN (Rec: 10/23/18 15:03 LRN [id number]) Cervical Spine Range of Motion Cervical Spine Active Degrees Testing Position Sitting Flexion 56 Extension 45 Rotation Left 65 Rotation Right 50 Lumbar Spine Range of Motion Lumbar Spine Active Degrees Testing Position Standing Flexion 15 Extension 5 Lateral Flexion Left 10 Lateral Flexion Right 15 ROM Limitations Pain Comments Flex/Ext above is painfree range. Flex AROM tolerated is 32 deg' s. Rotation approximated is 30 deg's left, 45 deg's right. PT-OP-M Strength Start: 10/21/18 21:14 Freq: Status: Active Protocol: Document 10/23/18 08:15 LRN (Rec: 10/23/18 15:03 LRN [id number]) Trunk Strength Trunk Manual Muscle Testing Comments Deferred until next visit due to pain. Hip Strength Hip Manual Muscle Testing Right Flexion (L2) 3 Fair Extension (S1) 3 Fair Comments Hip strength is 5/5 except as noted above Left Extension (S1) 3 Fair Comments Hip strength is 5/5 except as noted above Knee Strength Knee Manual Muscle Testing Right Comments Generally 5/5. Left Comments Generally 3/5. PT-OP-Q Treatments Start: 10/21/18 21:14 Freq: Status: Active Protocol: Document 11/26/18 10:57 AMH (Rec: 11/26/18 11:02 AMH [email or web address]) Therapeutic Exercises Supine Exercises 5 Supine Exercise Name lower abdominal isometrics with legs over the ball and lower abdominal faci Reps/Minutes x 10 reps 4 Supine Exercise Name supine hip adduction with isometric ball squeeze Reps/Minutes x 10 3 Supine Exercise Name 1/2 foam roll strech 2 Supine Exercise Name Transverse abdominal faciitation with marches 1 Supine Exercise Name stretches: SKTC, DKTC, Happy baby, hamstring stretch with strap, figure 4 Other Exercises 4 Other Exercise Name jillian pose 3 Other Exercise Name cat cow and wag the tail sidebends Reps/Minutes x 10 reps 2 Other Exercise Name quadraped TA with opposite arm lifts Reps/Minutes x 10 reps 1 Other Exercise Name quadraped TA facilitation Reps/Minutes x 10 reps with the breath Manual Therapy Treatment Soft Tissue Mobilization 1 Body Location manual iliopsoas stretching in sidelying and supine PT-OP-T Assessment and Plan Start: 10/21/18 21:14 Freq: Status: Active Protocol: Document 11/26/18 10:57 AMH (Rec: 11/26/18 11:02 AMH [email or web address]) Physical Therapy Assessment Assessment Summary Assessment reviewed MRI and discussed trying to work on neutral spine to avoid over extension due to spondy. Hip flexors very tight so working on ways for [employer] do stretch at home. 1/2 kneeling was bothersome to her knees Physical Therapy Plan Frequency and Duration Frequency of Treatment 2x/Week Plan of Care Start Date 10/23/18 Plan of Care End Date 01/16/19 Therapeutic Interventions Therapeutic Interventions Aquatic Therapy Balance Training Home Exercise Program Joint Mobilizations Manual Therapy Neuromuscular Re-education Patient/Caregiver Education Self-Care/Home Management Soft Tissue Mobilization Taping Therapeutic Activities Therapeutic Exercises Modalities Cold Pack/Ice Massage Electric Stimulation Hot Packs Ultrasound Other Therapeutic Interventions Laser therapy Next Visit Focus/Plan Next Note Type Treatment Note Next Visit Plan shoulder ROM measurements next visit and begin stabilization
--- NOTE | 2018-12-18 13:18 | PT.OTN ---
Current Diagnoses Other spondylosis with myelopathy, lumbar region (12/18/18) Spondylosis without myelopathy or radiculopathy, cervical region (12/18/18) Spondylosis without myelopathy or radiculopathy, lumbar region (12/18/18) Spondylosis without myelopathy or radiculopathy, lumbosacral region (12/18/18) Other cervical disc displacement, unspecified cervical region (12/18/18) Physical Therapy Treatment Note PT-OP-A Visit Information Start: 10/21/18 21:14 Freq: Status: Active Protocol: Document 12/18/18 13:02 [facility] (Rec: 12/18/18 13:17 [facility] [email or web address]) Out-Patient Physical Therapy Visit Information Visit Information Visit Type Treatment Note Visit Start Time 09:00 Visit Stop Time 09:50 Total Visit Minutes 50 Visit Number 4 Number of [place] ATTENDANT Visits 0 Evaluation Information Evaluation Date 10/23/18 PT-OP-B Current Condition Start: 10/21/18 21:14 Freq: Status: Active Protocol: Document 10/23/18 08:15 LRN (Rec: 10/23/18 09:09 LRN [id number]) Current Condition History of Current Condition Onset Date 2 yrs ago Current Complaints Pain along the full back, especially R side in LB, and feet plantar. History of Current Condition Back pain off/on due to accidents in childhood. Has had injections in the back for the past 5 yrs with good results, but the last one was 2 yrs ago and wasn't helpful. Was carrying a sick girl up stairs (#90) and tweeked her back. She sought an injection then, but was told she had to do therapy before receiving another injection. Pain in feet throbbing. Prior Treatments and Tests Cortisone injections. Massage every 3-4 weeks, accupuncture . Heating pad every morning and sleeps on heating pad, hot tub, NSAIDs, Vicodine when really bad. Massage monthly and accupuncture when affordable. PRIOR RECORD REVIEW: Lumbosacral spondylosis with myelopathy, Lumbar Facet arthropathy, Cervical spondylosis, HNP - Cervical. Future Testing and Treatments Planned Would like to go to chiropractor. Treatment Goals Patient/Caregiver Goals Pt Goals: Strengthen core around areas damaged or hurt. Learn proper body mechanics. Eliminate the sharp shooting pain. Don't want to have to change life because of the pain. Wants to go to bed because tired, not hurt. Pain rated 1-2/10. 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 Baseline Function- Recreation/Hobbies Walked trails with friends. Current Functional Impairments (Reported) Functional Limitations- ADL's Independent. Must sit to put socks on and lean against shower to wash bottoms of feet . Functional Limitations- Recreation/ Can no longer walk trails Hobbies because of back pain and out of shape (SOB). 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 PT-OP-C Subjective Start: 10/21/18 21:14 Freq: Status: Active Protocol: Document 12/18/18 13:02 [facility] (Rec: 12/18/18 13:17 [facility] [email or web address]) OP-PT Subjective Patient Comments Patient Comments Lilli reports she has been traveling and then shoveling snow. Her back is in spasm today PT-OP-F Manual Assessment Start: 10/21/18 21:14 Freq: Status: Active Protocol: Document 10/23/18 08:15 LRN (Rec: 10/23/18 15:03 LRN [id number]) Manual Assessments Soft Tissue Assessment Soft Tissue Mobility Assessment Increased tension in area of R paraspinals of L1-L5. Umbilicus shifted right. Joint Mobility Assessment Joint Mobility Assessment Pain with PA mild pressure at spinous processes of entire cervical, thoracic and lumbar spine in the area of T3-T5 and L1-L5 with greatest tenderness at T5 & L3. PT-OP-H Neuro Start: 10/21/18 21:14 Freq: Status: Active Protocol: Document 10/23/18 08:15 LRN (Rec: 10/23/18 15:03 LRN [id number]) Sensation Evaluation Gross Sensation Gross Sensation WNL PT-OP-J Posture/Palpation/Skin Start: 10/21/18 21:14 Freq: Status: Active Protocol: Document 10/23/18 08:15 LRN (Rec: 10/23/18 15:03 LRN [id number]) Posture Evaluation Darrell Postural Classification System Darrell Postural Classifications Anterior/Posterior Vertebral Compression Test 2 Elbow Flexion Test 2 Comments Posture Comments Standing Posture: L shoulder and scapula elevated; reverse curvature at T3-T7, increased lordosis, R PSIS low, R ASIS high (R innominate posteriorly rotated). PT-OP-K Range of Motion Start: 10/21/18 21:14 Freq: Status: Active Protocol: Document 10/23/18 08:15 LRN (Rec: 10/23/18 15:03 LRN [id number]) Cervical Spine Range of Motion Cervical Spine Active Degrees Testing Position Sitting Flexion 56 Extension 45 Rotation Left 65 Rotation Right 50 Lumbar Spine Range of Motion Lumbar Spine Active Degrees Testing Position Standing Flexion 15 Extension 5 Lateral Flexion Left 10 Lateral Flexion Right 15 ROM Limitations Pain Comments Flex/Ext above is painfree range. Flex AROM tolerated is 32 deg' s. Rotation approximated is 30 deg's left, 45 deg's right. PT-OP-M Strength Start: 10/21/18 21:14 Freq: Status: Active Protocol: Document 10/23/18 08:15 LRN (Rec: 10/23/18 15:03 LRN [id number]) Trunk Strength Trunk Manual Muscle Testing Comments Deferred until next visit due to pain. Hip Strength Hip Manual Muscle Testing Right Flexion (L2) 3 Fair Extension (S1) 3 Fair Comments Hip strength is 5/5 except as noted above Left Extension (S1) 3 Fair Comments Hip strength is 5/5 except as noted above Knee Strength Knee Manual Muscle Testing Right Comments Generally 5/5. Left Comments Generally 3/5. PT-OP-Q Treatments Start: 10/21/18 21:14 Freq: Status: Active Protocol: Document 12/18/18 13:02 AMH (Rec: 12/18/18 13:17 AMH [email or web address]) Cardio Equipment Recumbent Elliptical ([employer]) Duration (Minutes) 5 Manual Therapy Treatment Soft Tissue Mobilization 2 Body Location prone MFR to thoracic and lumbar paraspinals Manual Techniques 1 Type manual hip ER/IR stretch PT-OP-R Modalities Start: 10/21/18 21:14 Freq: Status: Active Protocol: Document 12/18/18 13:17 [facility] (Rec: 12/18/18 13:18 [facility] [email or web address]) Ultrasound Therapy Treatment Right Back Treatment Duration (minutes) 8 Patient Position Prone Coupling Medium Ultrasound Gel Applicator Size (cm2) 5 Mode Setting Continuous Duty Cycle 100% Intensity Setting (w/cm2) 1.5 PT-OP-T Assessment and Plan Start: 10/21/18 21:14 Freq: Status: Active Protocol: Document 12/18/18 13:02 [facility] (Rec: 12/18/18 13:17 [facility] [email or web address]) Physical Therapy Assessment Assessment Summary Assessment I started Lilli on the bike today but she was in so much spasm that she was unable to tolerate exercise. I switched her to the prone pillow and worked on US over the right mid thoracic region and STM to reduce muscle spasms Physical Therapy Plan Frequency and Duration Frequency of Treatment 2x/Week Plan of Care Start Date 10/23/18 Plan of Care End Date 01/16/19 Therapeutic Interventions Therapeutic Interventions Aquatic Therapy Balance Training Home Exercise Program Joint Mobilizations Manual Therapy Neuromuscular Re-education Patient/Caregiver Education Self-Care/Home Management Soft Tissue Mobilization Taping Therapeutic Activities Therapeutic Exercises Modalities Cold Pack/Ice Massage Electric Stimulation Hot Packs Ultrasound Other Therapeutic Interventions Laser therapy Next Visit Focus/Plan Next Note Type Treatment Note Next Visit Plan revisit exercises next visit and shoulder examination
--- NOTE | 2018-12-28 15:03 | PT.OTN ---
Current Diagnoses Other spondylosis with myelopathy, lumbar region (12/25/18) Spondylosis without myelopathy or radiculopathy, cervical region (12/25/18) Spondylosis without myelopathy or radiculopathy, lumbar region (12/25/18) Spondylosis without myelopathy or radiculopathy, lumbosacral region (12/25/18) Other cervical disc displacement, unspecified cervical region (12/25/18) Physical Therapy Treatment Note PT-OP-A Visit Information Start: 10/21/18 21:14 Freq: Status: Active Protocol: Document 12/25/18 13:45 [facility] (Rec: 12/28/18 15:02 [facility] [email or web address]) Out-Patient Physical Therapy Visit Information Visit Information Visit Type Treatment Note Visit Start Time 13:45 Visit Stop Time 14:30 Total Visit Minutes 45 Visit Number 5 PT-OP-B Current Condition Start: 10/21/18 21:14 Freq: Status: Active Protocol: Document 10/23/18 08:15 LRN (Rec: 10/23/18 09:09 LRN [id number]) Current Condition History of Current Condition Onset Date 2 yrs ago Current Complaints Pain along the full back, especially R side in LB, and feet plantar. History of Current Condition Back pain off/on due to accidents in childhood. Has had injections in the back for the past 5 yrs with good results, but the last one was 2 yrs ago and wasn't helpful. Was carrying a sick girl up stairs (#90) and tweeked her back. She sought an injection then, but was told she had to do therapy before receiving another injection. Pain in feet throbbing. Prior Treatments and Tests Cortisone injections. Massage every 3-4 weeks, accupuncture . Heating pad every morning and sleeps on heating pad, hot tub, NSAIDs, Vicodine when really bad. Massage monthly and accupuncture when affordable. PRIOR RECORD REVIEW: Lumbosacral spondylosis with myelopathy, Lumbar Facet arthropathy, Cervical spondylosis, HNP - Cervical. Future Testing and Treatments Planned Would like to go to chiropractor. Treatment Goals Patient/Caregiver Goals Pt Goals: Strengthen core around areas damaged or hurt. Learn proper body mechanics. Eliminate the sharp shooting pain. Don't want to have to change life because of the pain. Wants to go to bed because tired, not hurt. Pain rated 1-2/10. 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 Baseline Function- Recreation/Hobbies Walked trails with friends. Current Functional Impairments (Reported) Functional Limitations- ADL's Independent. Must sit to put socks on and lean against shower to wash bottoms of feet . Functional Limitations- Recreation/ Can no longer walk trails Hobbies because of back pain and out of shape (SOB). 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 PT-OP-C Subjective Start: 10/21/18 21:14 Freq: Status: Active Protocol: Document 12/25/18 13:45 AMH (Rec: 12/28/18 15:02 AMH [email or web address]) OP-PT Subjective Patient Comments Patient Comments Lilli notes her pain is not bad today as she has taken her diazepam. She is ready to evaluate her shoulder PT-OP-F Manual Assessment Start: 10/21/18 21:14 Freq: Status: Active Protocol: Document 10/23/18 08:15 LRN (Rec: 10/23/18 15:03 LRN [id number]) Manual Assessments Soft Tissue Assessment Soft Tissue Mobility Assessment Increased tension in area of R paraspinals of L1-L5. Umbilicus shifted right. Joint Mobility Assessment Joint Mobility Assessment Pain with PA mild pressure at spinous processes of entire cervical, thoracic and lumbar spine in the area of T3-T5 and L1-L5 with greatest tenderness at T5 & L3. PT-OP-H Neuro Start: 10/21/18 21:14 Freq: Status: Active Protocol: Document 10/23/18 08:15 LRN (Rec: 10/23/18 15:03 LRN [id number]) Sensation Evaluation Gross Sensation Gross Sensation WNL PT-OP-J Posture/Palpation/Skin Start: 10/21/18 21:14 Freq: Status: Active Protocol: Document 10/23/18 08:15 LRN (Rec: 10/23/18 15:03 LRN [id number]) Posture Evaluation Darrell Postural Classification System Darrell Postural Classifications Anterior/Posterior Vertebral Compression Test 2 Elbow Flexion Test 2 Comments Posture Comments Standing Posture: L shoulder and scapula elevated; reverse curvature at T3-T7, increased lordosis, R PSIS low, R ASIS high (R innominate posteriorly rotated). PT-OP-K Range of Motion Start: 10/21/18 21:14 Freq: Status: Active Protocol: Document 10/23/18 08:15 LRN (Rec: 10/23/18 15:03 LRN [id number]) Cervical Spine Range of Motion Cervical Spine Active Degrees Testing Position Sitting Flexion 56 Extension 45 Rotation Left 65 Rotation Right 50 Lumbar Spine Range of Motion Lumbar Spine Active Degrees Testing Position Standing Flexion 15 Extension 5 Lateral Flexion Left 10 Lateral Flexion Right 15 ROM Limitations Pain Comments Flex/Ext above is painfree range. Flex AROM tolerated is 32 deg' s. Rotation approximated is 30 deg's left, 45 deg's right. PT-OP-M Strength Start: 10/21/18 21:14 Freq: Status: Active Protocol: Document 10/23/18 08:15 LRN (Rec: 10/23/18 15:03 LRN [id number]) Trunk Strength Trunk Manual Muscle Testing Comments Deferred until next visit due to pain. Hip Strength Hip Manual Muscle Testing Right Flexion (L2) 3 Fair Extension (S1) 3 Fair Comments Hip strength is 5/5 except as noted above Left Extension (S1) 3 Fair Comments Hip strength is 5/5 except as noted above Knee Strength Knee Manual Muscle Testing Right Comments Generally 5/5. Left Comments Generally 3/5. PT-OP-Q Treatments Start: 10/21/18 21:14 Freq: Status: Active Protocol: Document 12/25/18 13:45 AMH (Rec: 12/28/18 15:02 AMH [email or web address]) Therapeutic Exercises Supine Exercises 6 Supine Exercise Name shoulder flexion with wand 3 Supine Exercise Name 1/2 foam roll strech 2 Supine Exercise Name Transverse abdominal faciitation with marches 1 Supine Exercise Name stretches: SKTC, DKTC, Happy baby, hamstring stretch with strap, figure 4 Prone Exercises 1 Prone Exercise Name prone horizontal abduction Reps/Minutes 0# 3x 10 Sidelying Exercises 1 Sidelying Exercise Name sidelying shoulder ER Equipment Used 1# Reps/Minutes 3 x 10 Sitting Exercises 2 Sitting Exercise Name long sitting lumbar flexion stretch 1 Sitting Exercise Name theraband horizontal abduction Manual Therapy Treatment Soft Tissue Mobilization 3 Body Location manual cervcial stretches and UT release Manual Techniques 2 Type manual shoulder IR/ER stretch PT-OP-R Modalities Start: 10/21/18 21:14 Freq: Status: Active Protocol: Document 12/18/18 13:17 AMH (Rec: 12/18/18 13:18 AMH [email or web address]) Ultrasound Therapy Treatment Right Back Treatment Duration (minutes) 8 Patient Position Prone Coupling Medium Ultrasound Gel Applicator Size (cm2) 5 Mode Setting Continuous Duty Cycle 100% Intensity Setting (w/cm2) 1.5 PT-OP-T Assessment and Plan Start: 10/21/18 21:14 Freq: Status: Active Protocol: Document 12/25/18 13:45 AMH (Rec: 12/28/18 15:02 AMH [email or web address]) Physical Therapy Assessment Assessment Summary Assessment Shoulder IR limited B to 50 deg, pain reaching behind the back, flexion 165 deg right, 4 /5 ER/IR strength B. Weakness in the lower traps bilaterally with upper trapezius dominance. Include shoulder strengthening and postural education in plan of care Physical Therapy Plan Frequency and Duration Frequency of Treatment 2x/Week Plan of Care Start Date 10/23/18 Plan of Care End Date 01/16/19 Therapeutic Interventions Therapeutic Interventions Aquatic Therapy Balance Training Home Exercise Program Joint Mobilizations Manual Therapy Neuromuscular Re-education Patient/Caregiver Education Self-Care/Home Management Soft Tissue Mobilization Taping Therapeutic Activities Therapeutic Exercises Modalities Cold Pack/Ice Massage Electric Stimulation Hot Packs Ultrasound Other Therapeutic Interventions Laser therapy Next Visit Focus/Plan Next Note Type Treatment Note Next Visit Plan begin with [employer] for warm up, shoulder johny, stretches and strengthening exercises
--- NOTE | 2019-01-06 11:03 | PT.OTN ---
Current Diagnoses Other spondylosis with myelopathy, lumbar region (01/06/19) Spondylosis without myelopathy or radiculopathy, cervical region (01/06/19) Spondylosis without myelopathy or radiculopathy, lumbar region (01/06/19) Spondylosis without myelopathy or radiculopathy, lumbosacral region (01/06/19) Other cervical disc displacement, unspecified cervical region (01/06/19) Physical Therapy Treatment Note PT-OP-A Visit Information Start: 10/21/18 21:14 Freq: Status: Active Protocol: Document 12/30/18 13:45 AMH (Rec: 01/06/19 11:03 AMH [email or web address]) Out-Patient Physical Therapy Visit Information Visit Information Visit Type Treatment Note Visit Start Time 09:00 Visit Stop Time 09:45 Total Visit Minutes 45 Visit Number 6 Number of [employer] Visits 0 PT-OP-B Current Condition Start: 10/21/18 21:14 Freq: Status: Active Protocol: Document 10/23/18 08:15 LRN (Rec: 10/23/18 09:09 LRN [id number]) Current Condition History of Current Condition Onset Date 2 yrs ago Current Complaints Pain along the full back, especially R side in LB, and feet plantar. History of Current Condition Back pain off/on due to accidents in childhood. Has had injections in the back for the past 5 yrs with good results, but the last one was 2 yrs ago and wasn't helpful. Was carrying a sick girl up stairs (#90) and tweeked her back. She sought an injection then, but was told she had to do therapy before receiving another injection. Pain in feet throbbing. Prior Treatments and Tests Cortisone injections. Massage every 3-4 weeks, accupuncture . Heating pad every morning and sleeps on heating pad, hot tub, NSAIDs, Vicodine when really bad. Massage monthly and accupuncture when affordable. PRIOR RECORD REVIEW: Lumbosacral spondylosis with myelopathy, Lumbar Facet arthropathy, Cervical spondylosis, HNP - Cervical. Future Testing and Treatments Planned Would like to go to chiropractor. Treatment Goals Patient/Caregiver Goals Pt Goals: Strengthen core around areas damaged or hurt. Learn proper body mechanics. Eliminate the sharp shooting pain. Don't want to have to change life because of the pain. Wants to go to bed because tired, not hurt. Pain rated 1-2/10. 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 Baseline Function- Recreation/Hobbies Walked trails with friends. Current Functional Impairments (Reported) Functional Limitations- ADL's Independent. Must sit to put socks on and lean against shower to wash bottoms of feet . Functional Limitations- Recreation/ Can no longer walk trails Hobbies because of back pain and out of shape (SOB). 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 PT-OP-C Subjective Start: 10/21/18 21:14 Freq: Status: Active Protocol: Document 12/30/18 13:45 AMH (Rec: 01/06/19 11:03 AMH [email or web address]) OP-PT Subjective Patient Comments Patient Comments Lilli reports she has been trying to work on her exercises at home PT-OP-F Manual Assessment Start: 10/21/18 21:14 Freq: Status: Active Protocol: Document 10/23/18 08:15 LRN (Rec: 10/23/18 15:03 LRN [id number]) Manual Assessments Soft Tissue Assessment Soft Tissue Mobility Assessment Increased tension in area of R paraspinals of L1-L5. Umbilicus shifted right. Joint Mobility Assessment Joint Mobility Assessment Pain with PA mild pressure at spinous processes of entire cervical, thoracic and lumbar spine in the area of T3-T5 and L1-L5 with greatest tenderness at T5 & L3. PT-OP-H Neuro Start: 10/21/18 21:14 Freq: Status: Active Protocol: Document 10/23/18 08:15 LRN (Rec: 10/23/18 15:03 LRN [id number]) Sensation Evaluation Gross Sensation Gross Sensation WNL PT-OP-J Posture/Palpation/Skin Start: 10/21/18 21:14 Freq: Status: Active Protocol: Document 10/23/18 08:15 LRN (Rec: 10/23/18 15:03 LRN [id number]) Posture Evaluation [facility] Postural Classification System Darrell Postural Classifications Anterior/Posterior Vertebral Compression Test 2 Elbow Flexion Test 2 Comments Posture Comments Standing Posture: L shoulder and scapula elevated; reverse curvature at T3-T7, increased lordosis, R PSIS low, R ASIS high (R innominate posteriorly rotated). PT-OP-K Range of Motion Start: 10/21/18 21:14 Freq: Status: Active Protocol: Document 10/23/18 08:15 LRN (Rec: 10/23/18 15:03 LRN [id number]) Cervical Spine Range of Motion Cervical Spine Active Degrees Testing Position Sitting Flexion 56 Extension 45 Rotation Left 65 Rotation Right 50 Lumbar Spine Range of Motion Lumbar Spine Active Degrees Testing Position Standing Flexion 15 Extension 5 Lateral Flexion Left 10 Lateral Flexion Right 15 ROM Limitations Pain Comments Flex/Ext above is painfree range. Flex AROM tolerated is 32 deg' s. Rotation approximated is 30 deg's left, 45 deg's right. PT-OP-M Strength Start: 10/21/18 21:14 Freq: Status: Active Protocol: Document 10/23/18 08:15 LRN (Rec: 10/23/18 15:03 LRN [id number]) Trunk Strength Trunk Manual Muscle Testing Comments Deferred until next visit due to pain. Hip Strength Hip Manual Muscle Testing Right Flexion (L2) 3 Fair Extension (S1) 3 Fair Comments Hip strength is 5/5 except as noted above Left Extension (S1) 3 Fair Comments Hip strength is 5/5 except as noted above Knee Strength Knee Manual Muscle Testing Right Comments Generally 5/5. Left Comments Generally 3/5. PT-OP-Q Treatments Start: 10/21/18 21:14 Freq: Status: Active Protocol: Document 12/30/18 13:45 AMH (Rec: 01/06/19 11:03 AMH [email or web address]) Therapeutic Exercises Supine Exercises 6 Supine Exercise Name shoulder flexion with wand 3 Supine Exercise Name 1/2 foam roll strech Prone Exercises 1 Prone Exercise Name prone horizontal abduction Reps/Minutes 0# 3x 10 Sitting Exercises 2 Sitting Exercise Name long sitting lumbar flexion stretch 1 Sitting Exercise Name theraband horizontal abduction Other Exercises 1 Other Exercise Name quadraped TA facilitation Reps/Minutes x 10 reps with the breath Manual Therapy Treatment Soft Tissue Mobilization 2 Body Location prone MFR to thoracic and lumbar paraspinals PT-OP-R Modalities Start: 10/21/18 21:14 Freq: Status: Active Protocol: Document 12/18/18 13:17 AMH (Rec: 12/18/18 13:18 AMH [email or web address]) Ultrasound Therapy Treatment Right Back Treatment Duration (minutes) 8 Patient Position Prone Coupling Medium Ultrasound Gel Applicator Size (cm2) 5 Mode Setting Continuous Duty Cycle 100% Intensity Setting (w/cm2) 1.5 PT-OP-T Assessment and Plan Start: 10/21/18 21:14 Freq: Status: Active Protocol: Document 12/30/18 13:45 AMH (Rec: 01/06/19 11:03 AMH [email or web address]) Physical Therapy Assessment Assessment Summary Assessment Able to work on sidelying [employer]ler ER, added in standing Serratus anterior wall press with good tolerance. Needs continued work on scapula upward rotators Physical Therapy Plan Frequency and Duration Frequency of Treatment 2x/Week Plan of Care Start Date 10/23/18 Plan of Care End Date 01/16/19 Therapeutic Interventions Therapeutic Interventions Aquatic Therapy Balance Training Home Exercise Program Joint Mobilizations Manual Therapy Neuromuscular Re-education Patient/Caregiver Education Self-Care/Home Management Soft Tissue Mobilization Taping Therapeutic Activities Therapeutic Exercises Modalities Cold Pack/Ice Massage Electric Stimulation Hot Packs Ultrasound Other Therapeutic Interventions Laser therapy Next Visit Focus/Plan Next Note Type Treatment Note Next Visit Plan begin with [employer] for warm up, shoulder johny, stretches and strengthening exercises
--- NOTE | 2019-01-06 11:19 | PT.OTN ---
Current Diagnoses Other spondylosis with myelopathy, lumbar region (01/06/19) Spondylosis without myelopathy or radiculopathy, cervical region (01/06/19) Spondylosis without myelopathy or radiculopathy, lumbar region (01/06/19) Spondylosis without myelopathy or radiculopathy, lumbosacral region (01/06/19) Other cervical disc displacement, unspecified cervical region (01/06/19) Physical Therapy Treatment Note PT-OP-A Visit Information Start: 10/21/18 21:14 Freq: Status: Active Protocol: Document 01/06/19 11:11 [facility] (Rec: 01/06/19 11:19 [facility] [email or web address]) Out-Patient Physical Therapy Visit Information Visit Information Visit Type Treatment Note Visit Start Time 09:00 Visit Stop Time 09:45 Total Visit Minutes 45 Visit Number 7 Number of LUMBER PRESS OPERATOR Visits 0 Evaluation Information Evaluation Date 10/23/18 PT-OP-B Current Condition Start: 10/21/18 21:14 Freq: Status: Active Protocol: Document 10/23/18 08:15 LRN (Rec: 10/23/18 09:09 LRN [id number]) Current Condition History of Current Condition Onset Date 2 yrs ago Current Complaints Pain along the full back, especially R side in LB, and feet plantar. History of Current Condition Back pain off/on due to accidents in childhood. Has had injections in the back for the past 5 yrs with good results, but the last one was 2 yrs ago and wasn't helpful. Was carrying a sick girl up stairs (#90) and tweeked her back. She sought an injection then, but was told she had to do therapy before receiving another injection. Pain in feet throbbing. Prior Treatments and Tests Cortisone injections. Massage every 3-4 weeks, accupuncture . Heating pad every morning and sleeps on heating pad, hot tub, NSAIDs, Vicodine when really bad. Massage monthly and accupuncture when affordable. PRIOR RECORD REVIEW: Lumbosacral spondylosis with myelopathy, Lumbar Facet arthropathy, Cervical spondylosis, HNP - Cervical. Future Testing and Treatments Planned Would like to go to chiropractor. Treatment Goals Patient/Caregiver Goals Pt Goals: Strengthen core around areas damaged or hurt. Learn proper body mechanics. Eliminate the sharp shooting pain. Don't want to have to change life because of the pain. Wants to go to bed because tired, not hurt. Pain rated 1-2/10. 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 Baseline Function- Recreation/Hobbies Walked trails with friends. Current Functional Impairments (Reported) Functional Limitations- ADL's Independent. Must sit to put socks on and lean against shower to wash bottoms of feet . Functional Limitations- Recreation/ Can no longer walk trails Hobbies because of back pain and out of shape (SOB). 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 PT-OP-C Subjective Start: 10/21/18 21:14 Freq: Status: Active Protocol: Document 01/06/19 11:11 [facility] (Rec: 01/06/19 11:19 [facility] [email or web address]) OP-PT Subjective Patient Comments Patient Comments Lilli reports she has been strengthening for home and feels stronger. She has a migrane today so needs to start out slow and see what she can do. PT-OP-F Manual Assessment Start: 10/21/18 21:14 Freq: Status: Active Protocol: Document 10/23/18 08:15 LRN (Rec: 10/23/18 15:03 LRN [id number]) Manual Assessments Soft Tissue Assessment Soft Tissue Mobility Assessment Increased tension in area of R paraspinals of L1-L5. Umbilicus shifted right. Joint Mobility Assessment Joint Mobility Assessment Pain with PA mild pressure at spinous processes of entire cervical, thoracic and lumbar spine in the area of T3-T5 and L1-L5 with greatest tenderness at T5 & L3. PT-OP-H Neuro Start: 10/21/18 21:14 Freq: Status: Active Protocol: Document 10/23/18 08:15 LRN (Rec: 10/23/18 15:03 LRN [id number]) Sensation Evaluation Gross Sensation Gross Sensation WNL PT-OP-J Posture/Palpation/Skin Start: 10/21/18 21:14 Freq: Status: Active Protocol: Document 10/23/18 08:15 LRN (Rec: 10/23/18 15:03 LRN [id number]) Posture Evaluation Darrell Postural Classification System Darrell Postural Classifications Anterior/Posterior Vertebral Compression Test 2 Elbow Flexion Test 2 Comments Posture Comments Standing Posture: L shoulder and scapula elevated; reverse curvature at T3-T7, increased lordosis, R PSIS low, R ASIS high (R innominate posteriorly rotated). PT-OP-K Range of Motion Start: 10/21/18 21:14 Freq: Status: Active Protocol: Document 10/23/18 08:15 LRN (Rec: 10/23/18 15:03 LRN [id number]) Cervical Spine Range of Motion Cervical Spine Active Degrees Testing Position Sitting Flexion 56 Extension 45 Rotation Left 65 Rotation Right 50 Lumbar Spine Range of Motion Lumbar Spine Active Degrees Testing Position Standing Flexion 15 Extension 5 Lateral Flexion Left 10 Lateral Flexion Right 15 ROM Limitations Pain Comments Flex/Ext above is painfree range. Flex AROM tolerated is 32 deg' s. Rotation approximated is 30 deg's left, 45 deg's right. PT-OP-M Strength Start: 10/21/18 21:14 Freq: Status: Active Protocol: Document 10/23/18 08:15 LRN (Rec: 10/23/18 15:03 LRN [id number]) Trunk Strength Trunk Manual Muscle Testing Comments Deferred until next visit due to pain. Hip Strength Hip Manual Muscle Testing Right Flexion (L2) 3 Fair Extension (S1) 3 Fair Comments Hip strength is 5/5 except as noted above Left Extension (S1) 3 Fair Comments Hip strength is 5/5 except as noted above Knee Strength Knee Manual Muscle Testing Right Comments Generally 5/5. Left Comments Generally 3/5. PT-OP-Q Treatments Start: 10/21/18 21:14 Freq: Status: Active Protocol: Document 01/06/19 11:11 [facility] (Rec: 01/06/19 11:19 [facility] [email or web address]) Cardio Equipment Recumbent Elliptical ([employer]) Duration (Minutes) 5 Therapeutic Exercises Supine Exercises 8 Supine Exercise Name supine ball rolls Reps/Minutes x 20 7 Supine Exercise Name isometric ball squeeze Reps/Minutes x 10 with TA facilitation 3 Supine Exercise Name 1/2 foam roll strech 2 Supine Exercise Name Transverse abdominal faciitation with marches 1 Supine Exercise Name stretches: SKTC, DKTC, Happy baby, hamstring stretch with strap, figure 4 Sidelying Exercises 1 Sidelying Exercise Name sidelying shoulder ER Equipment Used 1# Reps/Minutes 3 x 10 Sitting Exercises 3 Sitting Exercise Name seated shoulder pully Reps/Minutes 3 min Standing Exercises 1 Standing Exercise Name standing rows Equipment Used level 1 theraband Comments 3 x 10 PT-OP-R Modalities Start: 10/21/18 21:14 Freq: Status: Active Protocol: Document 12/18/18 13:17 [facility] (Rec: 12/18/18 13:18 [facility] [email or web address]) Ultrasound Therapy Treatment Right Back Treatment Duration (minutes) 8 Patient Position Prone Coupling Medium Ultrasound Gel Applicator Size (cm2) 5 Mode Setting Continuous Duty Cycle 100% Intensity Setting (w/cm2) 1.5 PT-OP-T Assessment and Plan Start: 10/21/18 21:14 Freq: Status: Active Protocol: Document 01/06/19 11:11 [facility] (Rec: 01/06/19 11:19 [facility] [email or web address]) Physical Therapy Assessment Assessment Summary Assessment good tolerance for ther ex today and is getting stronger with her rotator cuff strengthening. Physical Therapy Plan Frequency and Duration Frequency of Treatment 2x/Week Plan of Care Start Date 10/23/18 Plan of Care End Date 01/16/19 Therapeutic Interventions Therapeutic Interventions Aquatic Therapy Balance Training Home Exercise Program Joint Mobilizations Manual Therapy Neuromuscular Re-education Patient/Caregiver Education Self-Care/Home Management Soft Tissue Mobilization Taping Therapeutic Activities Therapeutic Exercises Modalities Cold Pack/Ice Massage Electric Stimulation Hot Packs Ultrasound Other Therapeutic Interventions Laser therapy Next Visit Focus/Plan Next Note Type Treatment Note Next Visit Plan continue to progress dynamic stabiilzation for her rotator cuff and continue with LE ROM, flexibility and stabilization exercises
--- NOTE | 2019-01-08 10:43 | PT.OTN ---
Current Diagnoses Other spondylosis with myelopathy, lumbar region (01/08/19) Spondylosis without myelopathy or radiculopathy, cervical region (01/08/19) Spondylosis without myelopathy or radiculopathy, lumbar region (01/08/19) Spondylosis without myelopathy or radiculopathy, lumbosacral region (01/08/19) Other cervical disc displacement, unspecified cervical region (01/08/19) Physical Therapy Treatment Note PT-OP-A Visit Information Start: 10/21/18 21:14 Freq: Status: Active Protocol: Document 01/08/19 10:35 [facility] (Rec: 01/08/19 10:42 [facility] [email or web address]) Out-Patient Physical Therapy Visit Information Visit Information Visit Type Treatment Note Visit Start Time 09:00 Visit Stop Time 09:45 Total Visit Minutes 45 Visit Number 8 Number of VETERINARY ANATOMIST Visits 0 Evaluation Information Evaluation Date 10/23/18 PT-OP-B Current Condition Start: 10/21/18 21:14 Freq: Status: Active Protocol: Document 10/23/18 08:15 LRN (Rec: 10/23/18 09:09 LRN [id number]) Current Condition History of Current Condition Onset Date 2 yrs ago Current Complaints Pain along the full back, especially R side in LB, and feet plantar. History of Current Condition Back pain off/on due to accidents in childhood. Has had injections in the back for the past 5 yrs with good results, but the last one was 2 yrs ago and wasn't helpful. Was carrying a sick girl up stairs (#90) and tweeked her back. She sought an injection then, but was told she had to do therapy before receiving another injection. Pain in feet throbbing. Prior Treatments and Tests Cortisone injections. Massage every 3-4 weeks, accupuncture . Heating pad every morning and sleeps on heating pad, hot tub, NSAIDs, Vicodine when really bad. Massage monthly and accupuncture when affordable. PRIOR RECORD REVIEW: Lumbosacral spondylosis with myelopathy, Lumbar Facet arthropathy, Cervical spondylosis, HNP - Cervical. Future Testing and Treatments Planned Would like to go to chiropractor. Treatment Goals Patient/Caregiver Goals Pt Goals: Strengthen core around areas damaged or hurt. Learn proper body mechanics. Eliminate the sharp shooting pain. Don't want to have to change life because of the pain. Wants to go to bed because tired, not hurt. Pain rated 1-2/10. 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 Baseline Function- Recreation/Hobbies Walked trails with friends. Current Functional Impairments (Reported) Functional Limitations- ADL's Independent. Must sit to put socks on and lean against shower to wash bottoms of feet . Functional Limitations- Recreation/ Can no longer walk trails Hobbies because of back pain and out of shape (SOB). 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 PT-OP-C Subjective Start: 10/21/18 21:14 Freq: Status: Active Protocol: Document 01/08/19 10:35 [facility] (Rec: 01/08/19 10:42 [facility] [email or web address]) OP-PT Subjective Patient Comments Patient Comments No headache today but does feel muscle spasms in her back . She has a massage scheduled for later this am. PT-OP-F Manual Assessment Start: 10/21/18 21:14 Freq: Status: Active Protocol: Document 10/23/18 08:15 LRN (Rec: 10/23/18 15:03 LRN [id number]) Manual Assessments Soft Tissue Assessment Soft Tissue Mobility Assessment Increased tension in area of R paraspinals of L1-L5. Umbilicus shifted right. Joint Mobility Assessment Joint Mobility Assessment Pain with PA mild pressure at spinous processes of entire cervical, thoracic and lumbar spine in the area of T3-T5 and L1-L5 with greatest tenderness at T5 & L3. PT-OP-H Neuro Start: 10/21/18 21:14 Freq: Status: Active Protocol: Document 10/23/18 08:15 LRN (Rec: 10/23/18 15:03 LRN [id number]) Sensation Evaluation Gross Sensation Gross Sensation WNL PT-OP-J Posture/Palpation/Skin Start: 10/21/18 21:14 Freq: Status: Active Protocol: Document 10/23/18 08:15 LRN (Rec: 10/23/18 15:03 LRN [id number]) Posture Evaluation Darrell Postural Classification System Darrell Postural Classifications Anterior/Posterior Vertebral Compression Test 2 Elbow Flexion Test 2 Comments Posture Comments Standing Posture: L shoulder and scapula elevated; reverse curvature at T3-T7, increased lordosis, R PSIS low, R ASIS high (R innominate posteriorly rotated). PT-OP-K Range of Motion Start: 10/21/18 21:14 Freq: Status: Active Protocol: Document 10/23/18 08:15 LRN (Rec: 10/23/18 15:03 LRN [id number]) Cervical Spine Range of Motion Cervical Spine Active Degrees Testing Position Sitting Flexion 56 Extension 45 Rotation Left 65 Rotation Right 50 Lumbar Spine Range of Motion Lumbar Spine Active Degrees Testing Position Standing Flexion 15 Extension 5 Lateral Flexion Left 10 Lateral Flexion Right 15 ROM Limitations Pain Comments Flex/Ext above is painfree range. Flex AROM tolerated is 32 deg' s. Rotation approximated is 30 deg's left, 45 deg's right. PT-OP-M Strength Start: 10/21/18 21:14 Freq: Status: Active Protocol: Document 10/23/18 08:15 LRN (Rec: 10/23/18 15:03 LRN [id number]) Trunk Strength Trunk Manual Muscle Testing Comments Deferred until next visit due to pain. Hip Strength Hip Manual Muscle Testing Right Flexion (L2) 3 Fair Extension (S1) 3 Fair Comments Hip strength is 5/5 except as noted above Left Extension (S1) 3 Fair Comments Hip strength is 5/5 except as noted above Knee Strength Knee Manual Muscle Testing Right Comments Generally 5/5. Left Comments Generally 3/5. PT-OP-Q Treatments Start: 10/21/18 21:14 Freq: Status: Active Protocol: Document 01/08/19 10:35 AMH (Rec: 01/08/19 10:42 [facility] [email or web address]) Cardio Equipment Recumbent Elliptical ([employer]) Duration (Minutes) 5 Therapeutic Exercises Supine Exercises 8 Supine Exercise Name supine ball rolls Reps/Minutes x 20 7 Supine Exercise Name isometric ball squeeze Reps/Minutes x 10 with TA facilitation 2 Supine Exercise Name Transverse abdominal faciitation with marches 1 Supine Exercise Name stretches: SKTC, DKTC, Happy baby, hamstring stretch with strap, figure 4 Prone Exercises 1 Prone Exercise Name prone horizontal abduction Reps/Minutes 0# 3x 10 Sidelying Exercises 1 Sidelying Exercise Name sidelying shoulder ER Equipment Used 1# Reps/Minutes 3 x 10 Standing Exercises 4 Standing Exercise Name standing wall slides Reps/Minutes x 10 3 Standing Exercise Name standing serratus anterior wall press Reps/Minutes x 20 2 Standing Exercise Name standing bilateral extension Reps/Minutes 3 x 10 reps 1 Standing Exercise Name standing rows Equipment Used level 1 theraband Comments 3 x 10 Other Exercises 3 Other Exercise Name cat cow and wag the tail sidebends Reps/Minutes x 10 reps 1 Other Exercise Name quadraped TA facilitation Reps/Minutes x 10 reps with the breath PT-OP-R Modalities Start: 10/21/18 21:14 Freq: Status: Active Protocol: Document 12/18/18 13:17 AM[facility] (Rec: 12/18/18 13:18 [facility] [email or web address]) Ultrasound Therapy Treatment Right Back Treatment Duration (minutes) 8 Patient Position Prone Coupling Medium Ultrasound Gel Applicator Size (cm2) 5 Mode Setting Continuous Duty Cycle 100% Intensity Setting (w/cm2) 1.5 PT-OP-T Assessment and Plan Start: 10/21/18 21:14 Freq: Status: Active Protocol: Document 01/08/19 10:35 AM[facility] (Rec: 01/08/19 10:42 AMH [email or web address]) Physical Therapy Assessment Assessment Summary Assessment tolerating exercises better without having to stop due to pain. Would like exercises she can do at work Physical Therapy Plan Frequency and Duration Frequency of Treatment 2x/Week Plan of Care Start Date 10/23/18 Plan of Care End Date 01/16/19 Therapeutic Interventions Therapeutic Interventions Aquatic Therapy Balance Training Home Exercise Program Joint Mobilizations Manual Therapy Neuromuscular Re-education Patient/Caregiver Education Self-Care/Home Management Soft Tissue Mobilization Taping Therapeutic Activities Therapeutic Exercises Modalities Cold Pack/Ice Massage Electric Stimulation Hot Packs Ultrasound Other Therapeutic Interventions Laser therapy Next Visit Focus/Plan Next Note Type Treatment Note Next Visit Plan continue to progress dynamic stabiilzation for her rotator cuff and continue with LE ROM, flexibility and stabilization exercises
--- NOTE | 2019-01-20 09:27 | PT.OTN ---
Current Diagnoses Other spondylosis with myelopathy, lumbar region (01/13/19) Spondylosis without myelopathy or radiculopathy, cervical region (01/13/19) Spondylosis without myelopathy or radiculopathy, lumbar region (01/13/19) Spondylosis without myelopathy or radiculopathy, lumbosacral region (01/13/19) Other cervical disc displacement, unspecified cervical region (01/13/19) Physical Therapy Treatment Note PT-OP-A Visit Information Start: 10/21/18 21:14 Freq: Status: Active Protocol: Document 01/13/19 10:19 [facility] (Rec: 01/13/19 10:28 [facility] [email or web address]) Out-Patient Physical Therapy Visit Information Visit Information Visit Type Progress Note Visit Start Time 09:00 Visit Stop Time 09:45 Total Visit Minutes 45 Visit Number 9 Number of C SOFTWARE ENGINEER Visits 0 Evaluation Information Evaluation Date 10/23/18 PT-OP-B Current Condition Start: 10/21/18 21:14 Freq: Status: Active Protocol: Document 10/23/18 08:15 LRN (Rec: 10/23/18 09:09 LRN [id number]) Current Condition History of Current Condition Onset Date 2 yrs ago Current Complaints Pain along the full back, especially R side in LB, and feet plantar. History of Current Condition Back pain off/on due to accidents in childhood. Has had injections in the back for the past 5 yrs with good results, but the last one was 2 yrs ago and wasn't helpful. Was carrying a sick girl up stairs (#90) and tweeked her back. She sought an injection then, but was told she had to do therapy before receiving another injection. Pain in feet throbbing. Prior Treatments and Tests Cortisone injections. Massage every 3-4 weeks, accupuncture . Heating pad every morning and sleeps on heating pad, hot tub, NSAIDs, Vicodine when really bad. Massage monthly and accupuncture when affordable. PRIOR RECORD REVIEW: Lumbosacral spondylosis with myelopathy, Lumbar Facet arthropathy, Cervical spondylosis, HNP - Cervical. Future Testing and Treatments Planned Would like to go to chiropractor. Treatment Goals Patient/Caregiver Goals Pt Goals: Strengthen core around areas damaged or hurt. Learn proper body mechanics. Eliminate the sharp shooting pain. Don't want to have to change life because of the pain. Wants to go to bed because tired, not hurt. Pain rated 1-2/10. 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 Baseline Function- Recreation/Hobbies Walked trails with friends. Current Functional Impairments (Reported) Functional Limitations- ADL's Independent. Must sit to put socks on and lean against shower to wash bottoms of feet . Functional Limitations- Recreation/ Can no longer walk trails Hobbies because of back pain and out of shape (SOB). 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 PT-OP-C Subjective Start: 10/21/18 21:14 Freq: Status: Active Protocol: Document 01/13/19 10:19 [facility] (Rec: 01/13/19 10:28 [facility] [email or web address]) OP-PT Subjective Patient Comments Patient Comments Lilli reports she is on pain meds today due to left shoulder pain and low back spasms. PT-OP-F Manual Assessment Start: 10/21/18 21:14 Freq: Status: Active Protocol: Document 10/23/18 08:15 LRN (Rec: 10/23/18 15:03 LRN [id number]) Manual Assessments Soft Tissue Assessment Soft Tissue Mobility Assessment Increased tension in area of R paraspinals of L1-L5. Umbilicus shifted right. Joint Mobility Assessment Joint Mobility Assessment Pain with PA mild pressure at spinous processes of entire cervical, thoracic and lumbar spine in the area of T3-T5 and L1-L5 with greatest tenderness at T5 & L3. PT-OP-H Neuro Start: 10/21/18 21:14 Freq: Status: Active Protocol: Document 10/23/18 08:15 LRN (Rec: 10/23/18 15:03 LRN [id number]) Sensation Evaluation Gross Sensation Gross Sensation WNL PT-OP-J Posture/Palpation/Skin Start: 10/21/18 21:14 Freq: Status: Active Protocol: Document 10/23/18 08:15 LRN (Rec: 10/23/18 15:03 LRN [id number]) Posture Evaluation Darrell Postural Classification System Darrell Postural Classifications Anterior/Posterior Vertebral Compression Test 2 Elbow Flexion Test 2 Comments Posture Comments Standing Posture: L shoulder and scapula elevated; reverse curvature at T3-T7, increased lordosis, R PSIS low, R ASIS high (R innominate posteriorly rotated). PT-OP-K Range of Motion Start: 10/21/18 21:14 Freq: Status: Active Protocol: Document 10/23/18 08:15 LRN (Rec: 10/23/18 15:03 LRN [id number]) Cervical Spine Range of Motion Cervical Spine Active Degrees Testing Position Sitting Flexion 56 Extension 45 Rotation Left 65 Rotation Right 50 Lumbar Spine Range of Motion Lumbar Spine Active Degrees Testing Position Standing Flexion 15 Extension 5 Lateral Flexion Left 10 Lateral Flexion Right 15 ROM Limitations Pain Comments Flex/Ext above is painfree range. Flex AROM tolerated is 32 deg' s. Rotation approximated is 30 deg's left, 45 deg's right. PT-OP-M Strength Start: 10/21/18 21:14 Freq: Status: Active Protocol: Document 10/23/18 08:15 LRN (Rec: 10/23/18 15:03 LRN [id number]) Trunk Strength Trunk Manual Muscle Testing Comments Deferred until next visit due to pain. Hip Strength Hip Manual Muscle Testing Right Flexion (L2) 3 Fair Extension (S1) 3 Fair Comments Hip strength is 5/5 except as noted above Left Extension (S1) 3 Fair Comments Hip strength is 5/5 except as noted above Knee Strength Knee Manual Muscle Testing Right Comments Generally 5/5. Left Comments Generally 3/5. PT-OP-Q Treatments Start: 10/21/18 21:14 Freq: Status: Active Protocol: Document 01/13/19 10:19 [facility] (Rec: 01/13/19 10:28 [facility] [email or web address]) Cardio Equipment Recumbent Elliptical (Airpowered) Duration (Minutes) 5 Therapeutic Exercises Supine Exercises 8 Supine Exercise Name supine ball rolls Reps/Minutes x 20 7 Supine Exercise Name isometric ball squeeze Reps/Minutes x 10 with TA facilitation 1 Supine Exercise Name stretches: SKTC, DKTC, Happy baby, hamstring stretch with strap, figure 4 Prone Exercises 1 Prone Exercise Name prone horizontal abduction Reps/Minutes 0# 3x 10 Comments pain in left shoulder today, 10 reps only on left Sidelying Exercises 1 Sidelying Exercise Name sidelying shoulder ER Equipment Used 1# Reps/Minutes 3 x 10 Sitting Exercises 5 Sitting Exercise Name seated ball small bounces 4 Sitting Exercise Name seated ball pelvic tilts, sidebends, hip circles 3 Sitting Exercise Name seated shoulder pully Reps/Minutes 3 min Standing Exercises 2 Standing Exercise Name standing bilateral extension Reps/Minutes 3 x 10 reps 1 Standing Exercise Name standing rows Equipment Used level 1 theraband Comments 3 x 10 PT-OP-R Modalities Start: 10/21/18 21:14 Freq: Status: Active Protocol: Document 12/18/18 13:17 [facility] (Rec: 12/18/18 13:18 [facility] [email or web address]) Ultrasound Therapy Treatment Right Back Treatment Duration (minutes) 8 Patient Position Prone Coupling Medium Ultrasound Gel Applicator Size (cm2) 5 Mode Setting Continuous Duty Cycle 100% Intensity Setting (w/cm2) 1.5 PT-OP-T Assessment and Plan Start: 10/21/18 21:14 Freq: Status: Active Protocol: Document 01/13/19 10:19 [facility] (Rec: 01/13/19 10:28 [facility] [email or web address]) Physical Therapy Assessment Goals Six Impairment Decreased shoulder strength B Fpc Goal (LTG) Improve shoulder strength to 4 +-5/5 MMT for ER, IR, abduction, and flexion Five Impairment decreased full shoulder ROM B Short Term Goal (STG) Improve shoulder ROM to WNL without pain. Four Impairment Intermittent Mid back pain rated 2-3/10 Director News Goal (LTG) Decrease Mid back pain to 1-2/ 10 for tolerable pain prior to going to bed at night and for greater comfort in bed at night. LTG Duration 01/16/19 Three Impairment Constant Low Back Pain, rated 4-5/10, sharp-Right, ache-Left . Short Term Goal (STG) Initiate a self care DLS program. STG Duration 11/14/18 Director News Goal (LTG) Pt will be able to move functionally with minimal onset of R sharp stabbing pain and decreased overall pain by 50%. LTG Duration 12/26/18 Two Impairment Lacks proper body mechanics training Short Term Goal (STG) Pt will be educated in proper body mechanics for lifting, moving objects and functional activities. STG Duration 11/14/18 One Impairment Lack appropriate HEP Director News Goal (LTG) Pt will be independent on a self alf program. LTG Duration 01/16/19 Progress Towards Goals Progress Towards Goals Progressing Toward Goals Assessment Summary Assessment Lilli has been seen for both low back pain and a new referral for shoulder pain. She has been able to tolerated a gentle lumbar stabilization program, ROM for both the shoulder and lumbar spine and a gentle rotator cuff stabilization program. She is limited with full shoulder flexion and IR and has symptoms of impingement. Her strength is decreased 4/5 MMT for rotator cuff. There is a decreased tolerance today for the left shoulder exercises as she felt increased pain. Held off on prone shoulder abduction exercises due to pain. Lilli would benefit from continued PT to work towards her goals. Physical Therapy Plan Frequency and Duration Frequency of Treatment 2x/Week Plan of Care Start Date 10/23/18 Plan of Care End Date 01/16/19 Therapeutic Interventions Therapeutic Interventions Aquatic Therapy Balance Training Home Exercise Program Joint Mobilizations Manual Therapy Neuromuscular Re-education Patient/Caregiver Education Self-Care/Home Management Soft Tissue Mobilization Taping Therapeutic Activities Therapeutic Exercises Modalities Cold Pack/Ice Massage Electric Stimulation Hot Packs Ultrasound Other Therapeutic Interventions Laser therapy Next Visit Focus/Plan Next Note Type Treatment Note Next Visit Plan continue to progress dynamic stabilization for her rotator cuff and continue with LE ROM, flexibility and stabilization exercises
--- NOTE | 2019-01-20 09:28 | PT.OPPOC ---
Current Diagnoses Other spondylosis with myelopathy, lumbar region (01/13/19) Spondylosis without myelopathy or radiculopathy, cervical region (01/13/19) Spondylosis without myelopathy or radiculopathy, lumbar region (01/13/19) Spondylosis without myelopathy or radiculopathy, lumbosacral region (01/13/19) Other cervical disc displacement, unspecified cervical region (01/13/19) Provider Visit Care Team Role Provider Type Ga Newsome MD Primary Care Provider Physician Specialty: Family Practice Address: [address] [place] [id number] Email: [email or web address] Ezequiel Leavitt DO Attending Provider Physician Family Provider Specialty: Physiatry Pain Management Address: [address] [place] [address], [phone] Email: Plan Of Care PT-OP-T Assessment and Plan Start: 10/21/18 21:14 Freq: Status: Active Protocol: Document 01/13/19 10:19 [facility] (Rec: 01/13/19 10:28 [facility] [email or web address]) Physical Therapy Assessment Goals Six Impairment Decreased shoulder strength B Aircraft Systems Technician Goal (LTG) Improve shoulder strength to 4 +-5/5 MMT for ER, IR, abduction, and flexion Five Impairment decreased full shoulder ROM B Short Term Goal (STG) Improve shoulder ROM to WNL without pain. Four Impairment Intermittent Mid back pain rated 2-3/10 Alf Goal (LTG) Decrease Mid back pain to 1-2/ 10 for tolerable pain prior to going to bed at night and for greater comfort in bed at night. LTG Duration 01/16/19 Three Impairment Constant Low Back Pain, rated 4-5/10, sharp-Right, ache-Left . Short Term Goal (STG) Initiate a self care DLS program. STG Duration 11/14/18 Aircraft Systems Technician Goal (LTG) Pt will be able to move functionally with minimal onset of R sharp stabbing pain and decreased overall pain by 50%. LTG Duration 12/26/18 Two Impairment Lacks proper body mechanics training Short Term Goal (STG) Pt will be educated in proper body mechanics for lifting, moving objects and functional activities. STG Duration 11/14/18 One Impairment Lack appropriate HEP Aircraft Systems Technician Goal (LTG) Pt will be independent on a self chcf program. LTG Duration 01/16/19 Progress Towards Goals Progress Towards Goals Progressing Toward Goals Assessment Summary Assessment Lilli has been seen for both low back pain and a new referral for shoulder pain. She has been able to tolerated a gentle lumbar stabilization program, ROM for both the shoulder and lumbar spine and a gentle rotator cuff stabilization program. She is limited with full shoulder flexion and IR and has symptoms of impingement. Her strength is decreased 4/5 MMT for rotator cuff. There is a decreased tolerance today for the left shoulder exercises as she felt increased pain. Held off on prone shoulder abduction exercises due to pain. Lilli would benefit from continued PT to work towards her goals. Physical Therapy Plan Frequency and Duration Frequency of Treatment 2x/Week Plan of Care Start Date 10/23/18 Plan of Care End Date 01/16/19 Therapeutic Interventions Therapeutic Interventions Aquatic Therapy Balance Training Home Exercise Program Joint Mobilizations Manual Therapy Neuromuscular Re-education Patient/Caregiver Education Self-Care/Home Management Soft Tissue Mobilization Taping Therapeutic Activities Therapeutic Exercises Modalities Cold Pack/Ice Massage Electric Stimulation Hot Packs Ultrasound Other Therapeutic Interventions Laser therapy Next Visit Focus/Plan Next Note Type Treatment Note Next Visit Plan continue to progress dynamic stabilization for her rotator cuff and continue with LE ROM, flexibility and stabilization exercises Plan of Care Dates Plan of Care Start Date 10/23/18 Plan of Care End Date 01/16/19 Please Sign and Return: I have reviewed this Plan of Care and certify that the skilled therapy services above are required to meet the patient?s needs. Physician Signature Date Printed Name and Credentials Clinical Instructor Signature Printed Name and Credentials
--- NOTE | 2019-01-20 09:30 | PT.OPPOC ---
Current Diagnoses Other spondylosis with myelopathy, lumbar region (01/13/19) Spondylosis without myelopathy or radiculopathy, cervical region (01/13/19) Spondylosis without myelopathy or radiculopathy, lumbar region (01/13/19) Spondylosis without myelopathy or radiculopathy, lumbosacral region (01/13/19) Other cervical disc displacement, unspecified cervical region (01/13/19) Provider Visit Care Team Role Provider Type Ga Newsome MD Primary Care Provider Physician Specialty: Family Practice Address: [address] [place] [id number] Email: [email or web address] Ezequiel Leavitt DO Attending Provider Physician Family Provider Specialty: Physiatry Pain Management Address: [address] [place] [address], [phone] Email: Plan Of Care PT-OP-T Assessment and Plan Start: 10/21/18 21:14 Freq: Status: Active Protocol: Document 01/13/19 10:19 [facility] (Rec: 01/13/19 10:28 [facility] [email or web address]) Physical Therapy Assessment Goals Six Impairment Decreased shoulder strength B Infantry Assaultman Goal (LTG) Improve shoulder strength to 4 +-5/5 MMT for ER, IR, abduction, and flexion Five Impairment decreased full shoulder ROM B Short Term Goal (STG) Improve shoulder ROM to WNL without pain. Four Impairment Intermittent Mid back pain rated 2-3/10 Alf Goal (LTG) Decrease Mid back pain to 1-2/ 10 for tolerable pain prior to going to bed at night and for greater comfort in bed at night. LTG Duration 01/16/19 Three Impairment Constant Low Back Pain, rated 4-5/10, sharp-Right, ache-Left . Short Term Goal (STG) Initiate a self care DLS program. STG Duration 11/14/18 Infantry Assaultman Goal (LTG) Pt will be able to move functionally with minimal onset of R sharp stabbing pain and decreased overall pain by 50%. LTG Duration 12/26/18 Two Impairment Lacks proper body mechanics training Short Term Goal (STG) Pt will be educated in proper body mechanics for lifting, moving objects and functional activities. STG Duration 11/14/18 One Impairment Lack appropriate HEP Infantry Assaultman Goal (LTG) Pt will be independent on a self [facility] program. LTG Duration 01/16/19 Progress Towards Goals Progress Towards Goals Progressing Toward Goals Assessment Summary Assessment Lilli has been seen for both low back pain and a new referral for shoulder pain. She has been able to tolerated a gentle lumbar stabilization program, ROM for both the shoulder and lumbar spine and a gentle rotator cuff stabilization program. She is limited with full shoulder flexion and IR and has symptoms of impingement. Her strength is decreased 4/5 MMT for rotator cuff. There is a decreased tolerance today for the left shoulder exercises as she felt increased pain. Held off on prone shoulder abduction exercises due to pain. Lilli would benefit from continued PT to work towards her goals. Physical Therapy Plan Frequency and Duration Frequency of Treatment 2x/Week Plan of Care Start Date 01/13/19 Plan of Care End Date 03/10/19 Therapeutic Interventions Therapeutic Interventions Aquatic Therapy Balance Training Home Exercise Program Joint Mobilizations Manual Therapy Neuromuscular Re-education Patient/Caregiver Education Self-Care/Home Management Soft Tissue Mobilization Taping Therapeutic Activities Therapeutic Exercises Modalities Cold Pack/Ice Massage Electric Stimulation Hot Packs Ultrasound Other Therapeutic Interventions Laser therapy Next Visit Focus/Plan Next Note Type Treatment Note Next Visit Plan continue to progress dynamic stabilization for her rotator cuff and continue with LE ROM, flexibility and stabilization exercises Plan of Care Dates Plan of Care Start Date 01/13/19 Plan of Care End Date 03/10/19 Please Sign and Return: I have reviewed this Plan of Care and certify that the skilled therapy services above are required to meet the patient?s needs. Physician Signature Date Printed Name and Credentials Clinical Instructor Signature Printed Name and Credentials
--- NOTE | 2019-03-05 11:04 | PT.OTN ---
Current Diagnoses Other spondylosis with myelopathy, lumbar region (03/05/19) Spondylosis without myelopathy or radiculopathy, cervical region (03/05/19) Spondylosis without myelopathy or radiculopathy, lumbar region (03/05/19) Spondylosis without myelopathy or radiculopathy, lumbosacral region (03/05/19) Other cervical disc displacement, unspecified cervical region (03/05/19) Physical Therapy Treatment Note PT-OP-A Visit Information Start: 10/21/18 21:14 Freq: Status: Active Protocol: Document 03/05/19 10:47 AMH (Rec: 03/05/19 11:04 AMH [email or web address]) Out-Patient Physical Therapy Visit Information Visit Information Visit Type Treatment Note Visit Start Time 09:00 Visit Stop Time 09:45 Total Visit Minutes 45 Visit Number 1 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 History of Current Condition Back pain off/on due to accidents in childhood. Has had injections in the back for the past 5 yrs with good results, but the last one was 2 yrs ago and wasn't helpful. Was carrying a sick girl up stairs (#90) and tweeked her back. She sought an injection then, but was told she had to do therapy before receiving another injection. Pain in feet throbbing. Prior Treatments and Tests Cortisone injections. Massage every 3-4 weeks, accupuncture . Heating pad every morning and sleeps on heating pad, hot tub, NSAIDs, Vicodine when really bad. Massage monthly and accupuncture when affordable. PRIOR RECORD REVIEW: Lumbosacral spondylosis with myelopathy, Lumbar Facet arthropathy, Cervical spondylosis, HNP - Cervical. Future Testing and Treatments Planned Would like to go to chiropractor. Treatment Goals Patient/Caregiver Goals Pt Goals: Strengthen core around areas damaged or hurt. Learn proper body mechanics. Eliminate the sharp shooting pain. Don't want to have to change life because of the pain. Wants to go to bed because tired, not hurt. Pain rated 1-2/10. 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 Baseline Function- Recreation/Hobbies Walked trails with friends. Current Functional Impairments (Reported) Functional Limitations- ADL's Independent. Must sit to put socks on and lean against shower to wash bottoms of feet . Functional Limitations- Recreation/ Can no longer walk trails Hobbies because of back pain and out of shape (SOB). 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 PT-OP-C Subjective Start: 10/21/18 21:14 Freq: Status: Active Protocol: Document 03/05/19 10:47 AMH (Rec: 03/05/19 11:04 AMH [email or web address]) OP-PT Subjective Patient Comments Patient Comments Lilli reports she just got back from along road trip and drove approximately 100 miles per day. She is very stiff and sore into the right SI region. She saw Dr. Leavitt on Saturday and is scheduled for a L4-5 L5-S1 bilateral injection PT-OP-F Manual Assessment Start: 10/21/18 21:14 Freq: Status: Active Protocol: Document 03/05/19 10:47 AMH (Rec: 03/05/19 11:04 AMH [email or web address]) Manual Assessments Soft Tissue Assessment Soft Tissue Mobility Assessment Increased tension in area of R paraspinals of L1-L5. More so today than it has been the past few sessions most likely due to the long car trip. Joint Mobility Assessment Joint Mobility Assessment Pain with PA mild pressure at spinous processes of entire thoracic and lumbar spine in the area of T3-T5 and L1-L5 with greatest tenderness at T5 & L3. PT-OP-H Neuro Start: 10/21/18 21:14 Freq: Status: Active Protocol: Document 10/23/18 08:15 LRN (Rec: 10/23/18 15:03 LRN [id number]) Sensation Evaluation Gross Sensation Gross Sensation WNL PT-OP-J Posture/Palpation/Skin Start: 10/21/18 21:14 Freq: Status: Active Protocol: Document 10/23/18 08:15 LRN (Rec: 10/23/18 15:03 LRN [id number]) Posture Evaluation Darrell Postural Classification System Darrell Postural Classifications Anterior/Posterior Vertebral Compression Test 2 Elbow Flexion Test 2 Comments Posture Comments Standing Posture: L shoulder and scapula elevated; reverse curvature at T3-T7, increased lordosis, R PSIS low, R ASIS high (R innominate posteriorly rotated). PT-OP-K Range of Motion Start: 10/21/18 21:14 Freq: Status: Active Protocol: Document 10/23/18 08:15 LRN (Rec: 10/23/18 15:03 LRN [id number]) Cervical Spine Range of Motion Cervical Spine Active Degrees Testing Position Sitting Flexion 56 Extension 45 Rotation Left 65 Rotation Right 50 Lumbar Spine Range of Motion Lumbar Spine Active Degrees Testing Position Standing Flexion 15 Extension 5 Lateral Flexion Left 10 Lateral Flexion Right 15 ROM Limitations Pain Comments Flex/Ext above is painfree range. Flex AROM tolerated is 32 deg' s. Rotation approximated is 30 deg's left, 45 deg's right. PT-OP-M Strength Start: 10/21/18 21:14 Freq: Status: Active Protocol: Document 10/23/18 08:15 LRN (Rec: 10/23/18 15:03 LRN [id number]) Trunk Strength Trunk Manual Muscle Testing Comments Deferred until next visit due to pain. Hip Strength Hip Manual Muscle Testing Right Flexion (L2) 3 Fair Extension (S1) 3 Fair Comments Hip strength is 5/5 except as noted above Left Extension (S1) 3 Fair Comments Hip strength is 5/5 except as noted above Knee Strength Knee Manual Muscle Testing Right Comments Generally 5/5. Left Comments Generally 3/5. PT-OP-Q Treatments Start: 10/21/18 21:14 Freq: Status: Active Protocol: Document 03/05/19 10:47 AMH (Rec: 03/05/19 11:04 AMH [email or web address]) Gym Equipment Shuttle Recovery Bilateral Squats Details 50# Reps/Time 3x10 reps Therapeutic Exercises Supine Exercises 9 Supine Exercise Name legs over the ball with lower trunk rotation 8 Supine Exercise Name supine ball rolls Reps/Minutes x 20 1 Supine Exercise Name stretches: SKTC, DKTC, Happy baby, hamstring stretch with strap, figure 4 Prone Exercises 2 Prone Exercise Name prone over the ball stretch Reps/Minutes 2 minutes Other Exercises 5 Other Exercise Name jillian pose with stretches to open up the left side 3 Other Exercise Name cat cow and wag the tail sidebends Reps/Minutes x 10 reps Manual Therapy Treatment Soft Tissue Mobilization 4 Body Location Quadratus lumborum release on the right Manual Techniques 1 Type manual hip ER/IR stretch PT-OP-R Modalities Start: 10/21/18 21:14 Freq: Status: Active Protocol: Document 12/18/18 13:17 AMH (Rec: 12/18/18 13:18 AMH [email or web address]) Ultrasound Therapy Treatment Right Back Treatment Duration (minutes) 8 Patient Position Prone Coupling Medium Ultrasound Gel Applicator Size (cm2) 5 Mode Setting Continuous Duty Cycle 100% Intensity Setting (w/cm2) 1.5 PT-OP-T Assessment and Plan Start: 10/21/18 21:14 Freq: Status: Active Protocol: Document 03/05/19 10:47 AMH (Rec: 03/05/19 11:04 AMH [email or web address]) Physical Therapy Assessment Assessment Summary Assessment Lilli presented with increased muscle spasm today after a long road trip. She was guarded down the length of the right side of the lumbar spine today. We worked on decompression exercises today and lumbar flexion and she tolerated this well Physical Therapy Plan Frequency and Duration Frequency of Treatment 2x/Week Plan of Care Start Date 01/13/19 Plan of Care End Date 03/17/19 Therapeutic Interventions Therapeutic Interventions Aquatic Therapy Balance Training Home Exercise Program Joint Mobilizations Manual Therapy Neuromuscular Re-education Patient/Caregiver Education Self-Care/Home Management Soft Tissue Mobilization Taping Therapeutic Activities Therapeutic Exercises Modalities Cold Pack/Ice Massage Electric Stimulation Hot Packs Ultrasound Other Therapeutic Interventions Laser therapy Next Visit Focus/Plan Next Note Type Treatment Note Next Visit Plan continue to progress dynamic stabiilzation for her rotator cuff and continue with LE ROM, flexibility and stabilization exercises
--- NOTE | 2019-03-25 12:12 | PT.OTN ---
Current Diagnoses Other spondylosis with myelopathy, lumbar region (03/25/19) Spondylosis without myelopathy or radiculopathy, cervical region (03/25/19) Spondylosis without myelopathy or radiculopathy, lumbar region (03/25/19) Spondylosis without myelopathy or radiculopathy, lumbosacral region (03/25/19) Other cervical disc displacement, unspecified cervical region (03/25/19) Physical Therapy Treatment Note PT-OP-A Visit Information Start: 10/21/18 21:14 Freq: Status: Active Protocol: Document 03/25/19 11:57 AMH (Rec: 03/25/19 12:12 AMH [email or web address]) Out-Patient Physical Therapy Visit Information Visit Information Visit Type Treatment Note Visit Start Time 10:45 Visit Stop Time 11:30 Total Visit Minutes 45 Visit Number 2 Number of COOLING TOWER OPERATOR Visits 0 PT-OP-B Current Condition Start: 10/21/18 21:14 Freq: Status: Active Protocol: Document 10/23/18 08:15 LRN (Rec: 10/23/18 09:09 LRN [id number]) Current Condition History of Current Condition Onset Date 2 yrs ago Current Complaints Pain along the full back, especially R side in LB, and feet plantar. History of Current Condition Back pain off/on due to accidents in childhood. Has had injections in the back for the past 5 yrs with good results, but the last one was 2 yrs ago and wasn't helpful. Was carrying a sick girl up stairs (#90) and tweeked her back. She sought an injection then, but was told she had to do therapy before receiving another injection. Pain in feet throbbing. Prior Treatments and Tests Cortisone injections. Massage every 3-4 weeks, accupuncture . Heating pad every morning and sleeps on heating pad, hot tub, NSAIDs, Vicodine when really bad. Massage monthly and accupuncture when affordable. PRIOR RECORD REVIEW: Lumbosacral spondylosis with myelopathy, Lumbar Facet arthropathy, Cervical spondylosis, HNP - Cervical. Future Testing and Treatments Planned Would like to go to chiropractor. Treatment Goals Patient/Caregiver Goals Pt Goals: Strengthen core around areas damaged or hurt. Learn proper body mechanics. Eliminate the sharp shooting pain. Don't want to have to change life because of the pain. Wants to go to bed because tired, not hurt. Pain rated 1-2/10. 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 Baseline Function- Recreation/Hobbies Walked trails with friends. Current Functional Impairments (Reported) Functional Limitations- ADL's Independent. Must sit to put socks on and lean against shower to wash bottoms of feet . Functional Limitations- Recreation/ Can no longer walk trails Hobbies because of back pain and out of shape (SOB). 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 PT-OP-C Subjective Start: 10/21/18 21:14 Freq: Status: Active Protocol: Document 03/25/19 11:57 AMH (Rec: 03/25/19 12:12 AMH [email or web address]) OP-PT Subjective Patient Comments Patient Comments Lilli reports she had her lumbar injections and did well with them except she feels the right SI one didn't go far out enough PT-OP-F Manual Assessment Start: 10/21/18 21:14 Freq: Status: Active Protocol: Document 03/05/19 10:47 AMH (Rec: 03/05/19 11:04 AMH [email or web address]) Manual Assessments Soft Tissue Assessment Soft Tissue Mobility Assessment Increased tension in area of R paraspinals of L1-L5. More so today than it has been the past few sessions most likely due to the long car trip. Joint Mobility Assessment Joint Mobility Assessment Pain with PA mild pressure at spinous processes of entire thoracic and lumbar spine in the area of T3-T5 and L1-L5 with greatest tenderness at T5 & L3. PT-OP-H Neuro Start: 10/21/18 21:14 Freq: Status: Active Protocol: Document 10/23/18 08:15 LRN (Rec: 10/23/18 15:03 LRN [id number]) Sensation Evaluation Gross Sensation Gross Sensation WNL PT-OP-J Posture/Palpation/Skin Start: 10/21/18 21:14 Freq: Status: Active Protocol: Document 10/23/18 08:15 LRN (Rec: 10/23/18 15:03 LRN [id number]) Posture Evaluation Darrell Postural Classification System Darrell Postural Classifications Anterior/Posterior Vertebral Compression Test 2 Elbow Flexion Test 2 Comments Posture Comments Standing Posture: L shoulder and scapula elevated; reverse curvature at T3-T7, increased lordosis, R PSIS low, R ASIS high (R innominate posteriorly rotated). PT-OP-K Range of Motion Start: 10/21/18 21:14 Freq: Status: Active Protocol: Document 10/23/18 08:15 LRN (Rec: 10/23/18 15:03 LRN [id number]) Cervical Spine Range of Motion Cervical Spine Active Degrees Testing Position Sitting Flexion 56 Extension 45 Rotation Left 65 Rotation Right 50 Lumbar Spine Range of Motion Lumbar Spine Active Degrees Testing Position Standing Flexion 15 Extension 5 Lateral Flexion Left 10 Lateral Flexion Right 15 ROM Limitations Pain Comments Flex/Ext above is painfree range. Flex AROM tolerated is 32 deg' s. Rotation approximated is 30 deg's left, 45 deg's right. PT-OP-M Strength Start: 10/21/18 21:14 Freq: Status: Active Protocol: Document 10/23/18 08:15 LRN (Rec: 10/23/18 15:03 LRN [id number]) Trunk Strength Trunk Manual Muscle Testing Comments Deferred until next visit due to pain. Hip Strength Hip Manual Muscle Testing Right Flexion (L2) 3 Fair Extension (S1) 3 Fair Comments Hip strength is 5/5 except as noted above Left Extension (S1) 3 Fair Comments Hip strength is 5/5 except as noted above Knee Strength Knee Manual Muscle Testing Right Comments Generally 5/5. Left Comments Generally 3/5. PT-OP-Q Treatments Start: 10/21/18 21:14 Freq: Status: Active Protocol: Document 03/25/19 11:57 AMH (Rec: 03/25/19 12:12 AMH [email or web address]) Cardio Equipment Recumbent Elliptical ([employer]) Duration (Minutes) 5 Therapeutic Exercises Standing Exercises 5 Standing Exercise Name standing pelvic tilts against the wall Reps/Minutes x 10 reps 4 Standing Exercise Name standing wall slides Reps/Minutes x 10 Comments did opp arm lifts today due to shoulder pain Other Exercises 8 Other Exercise Name dynamic hamstring stretch Reps/Minutes x 10 reps 7 Other Exercise Name godess stretch 6 Other Exercise Name seated and standing forward bend for improved lumbar flexion 5 Other Exercise Name jillian pose with stretches to open up the left side 3 Other Exercise Name cat cow and wag the tail sidebends Reps/Minutes x 10 reps PT-OP-R Modalities Start: 10/21/18 21:14 Freq: Status: Active Protocol: Document 12/18/18 13:17 AMH (Rec: 12/18/18 13:18 AMH [email or web address]) Ultrasound Therapy Treatment Right Back Treatment Duration (minutes) 8 Patient Position Prone Coupling Medium Ultrasound Gel Applicator Size (cm2) 5 Mode Setting Continuous Duty Cycle 100% Intensity Setting (w/cm2) 1.5 PT-OP-T Assessment and Plan Start: 10/21/18 21:14 Freq: Status: Active Protocol: Document 03/25/19 11:57 AMH (Rec: 03/25/19 12:12 AMH [email or web address]) Physical Therapy Assessment Assessment Summary Assessment Lilli responded really well to her steroid injections but is still feeling some SI symptoms on the right. We went over stretches she can do at work today as it has been hard setting time aside to do a routine. Lilli has only been seen for 2 visits since her last progress report. She would benefit from continued PT Physical Therapy Plan Frequency and Duration Frequency of Treatment 2x/Week Plan of Care Start Date 03/25/19 Plan of Care End Date 06/03/19 Therapeutic Interventions Therapeutic Interventions Aquatic Therapy Balance Training Home Exercise Program Joint Mobilizations Manual Therapy Neuromuscular Re-education Patient/Caregiver Education Self-Care/Home Management Soft Tissue Mobilization Taping Therapeutic Activities Therapeutic Exercises Modalities Cold Pack/Ice Massage Electric Stimulation Hot Packs Ultrasound Other Therapeutic Interventions Laser therapy Next Visit Focus/Plan Next Note Type Treatment Note Next Visit Plan review all low back flexion stretches for work and continue to work on standing posture of avoidng increased lumbar lordosis
--- NOTE | 2019-03-25 12:12 | PT.OPPOC ---
Current Diagnoses Other spondylosis with myelopathy, lumbar region (03/25/19) Spondylosis without myelopathy or radiculopathy, cervical region (03/25/19) Spondylosis without myelopathy or radiculopathy, lumbar region (03/25/19) Spondylosis without myelopathy or radiculopathy, lumbosacral region (03/25/19) Other cervical disc displacement, unspecified cervical region (03/25/19) Provider Visit Care Team Role Provider Type Ga Newsome MD Primary Care Provider Physician Specialty: Family Practice Address: [address] [place] [address] Email: [email or web address] Ezequiel Leavitt DO Attending Provider Physician Family Provider Specialty: Physiatry Pain Management Address: [address] [place] [address], [phone] Email: Plan Of Care PT-OP-T Assessment and Plan Start: 10/21/18 21:14 Freq: Status: Active Protocol: Document 03/25/19 11:57 AMH (Rec: 03/25/19 12:12 AMH [email or web address]) Physical Therapy Assessment Assessment Summary Assessment Lilli responded really well to her steroid injections but is still feeling some SI symptoms on the right. We went over stretches she can do at work today as it has been hard setting time aside to do a routine. Lilli has only been seen for 2 visits since her last progress report. She would benefit from continued PT Physical Therapy Plan Frequency and Duration Frequency of Treatment 2x/Week Plan of Care Start Date 03/25/19 Plan of Care End Date 06/03/19 Therapeutic Interventions Therapeutic Interventions Aquatic Therapy Balance Training Home Exercise Program Joint Mobilizations Manual Therapy Neuromuscular Re-education Patient/Caregiver Education Self-Care/Home Management Soft Tissue Mobilization Taping Therapeutic Activities Therapeutic Exercises Modalities Cold Pack/Ice Massage Electric Stimulation Hot Packs Ultrasound Other Therapeutic Interventions Laser therapy Next Visit Focus/Plan Next Note Type Treatment Note Next Visit Plan review all low back flexion stretches for work and continue to work on standing posture of avoidng increased lumbar lordosis Plan of Care Dates Plan of Care Start Date 03/25/19 Plan of Care End Date 06/03/19 Please Sign and Return: I have reviewed this Plan of Care and certify that the skilled therapy services above are required to meet the patient?s needs. Physician Signature Date Printed Name and Credentials Clinical Instructor Signature Printed Name and Credentials
--- NOTE | 2019-04-02 09:59 | PT.OTN ---
Current Diagnoses Other spondylosis with myelopathy, lumbar region (04/02/19) Spondylosis without myelopathy or radiculopathy, cervical region (04/02/19) Spondylosis without myelopathy or radiculopathy, lumbar region (04/02/19) Spondylosis without myelopathy or radiculopathy, lumbosacral region (04/02/19) Other cervical disc displacement, unspecified cervical region (04/02/19) Physical Therapy Treatment Note PT-OP-A Visit Information Start: 10/21/18 21:14 Freq: Status: Active Protocol: Document 03/25/19 11:57 [facility] (Rec: 03/25/19 12:12 [facility] [email or web address]) Out-Patient Physical Therapy Visit Information Visit Information Visit Type Treatment Note Visit Start Time 10:45 Visit Stop Time 11:30 Total Visit Minutes 45 Visit Number 2 Number of AGENCY DEVELOPMENT MANAGER Visits 0 PT-OP-B Current Condition Start: 10/21/18 21:14 Freq: Status: Active Protocol: Document 10/23/18 08:15 LRN (Rec: 10/23/18 09:09 LRN [id number]) Current Condition History of Current Condition Onset Date 2 yrs ago Current Complaints Pain along the full back, especially R side in LB, and feet plantar. History of Current Condition Back pain off/on due to accidents in childhood. Has had injections in the back for the past 5 yrs with good results, but the last one was 2 yrs ago and wasn't helpful. Was carrying a sick girl up stairs (#90) and tweeked her back. She sought an injection then, but was told she had to do therapy before receiving another injection. Pain in feet throbbing. Prior Treatments and Tests Cortisone injections. Massage every 3-4 weeks, accupuncture . Heating pad every morning and sleeps on heating pad, hot tub, NSAIDs, Vicodine when really bad. Massage monthly and accupuncture when affordable. PRIOR RECORD REVIEW: Lumbosacral spondylosis with myelopathy, Lumbar Facet arthropathy, Cervical spondylosis, HNP - Cervical. Future Testing and Treatments Planned Would like to go to chiropractor. Treatment Goals Patient/Caregiver Goals Pt Goals: Strengthen core around areas damaged or hurt. Learn proper body mechanics. Eliminate the sharp shooting pain. Don't want to have to change life because of the pain. Wants to go to bed because tired, not hurt. Pain rated 1-2/10. 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 Baseline Function- Recreation/Hobbies Walked trails with friends. Current Functional Impairments (Reported) Functional Limitations- ADL's Independent. Must sit to put socks on and lean against shower to wash bottoms of feet . Functional Limitations- Recreation/ Can no longer walk trails Hobbies because of back pain and out of shape (SOB). 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 PT-OP-C Subjective Start: 10/21/18 21:14 Freq: Status: Active Protocol: Document 04/02/19 09:54 [facility] (Rec: 04/02/19 09:58 [facility] [email or web address]) OP-PT Subjective Patient Comments Patient Comments Lilli reports she has a really bad headache today and her left shouler is really sore PT-OP-F Manual Assessment Start: 10/21/18 21:14 Freq: Status: Active Protocol: Document 03/05/19 10:47 [facility] (Rec: 03/05/19 11:04 [facility] [email or web address]) Manual Assessments Soft Tissue Assessment Soft Tissue Mobility Assessment Increased tension in area of R paraspinals of L1-L5. More so today than it has been the past few sessions most likely due to the long car trip. Joint Mobility Assessment Joint Mobility Assessment Pain with PA mild pressure at spinous processes of entire thoracic and lumbar spine in the area of T3-T5 and L1-L5 with greatest tenderness at T5 & L3. PT-OP-H Neuro Start: 10/21/18 21:14 Freq: Status: Active Protocol: Document 10/23/18 08:15 LRN (Rec: 10/23/18 15:03 LRN [id number]) Sensation Evaluation Gross Sensation Gross Sensation WNL PT-OP-J Posture/Palpation/Skin Start: 10/21/18 21:14 Freq: Status: Active Protocol: Document 10/23/18 08:15 LRN (Rec: 10/23/18 15:03 LRN [id number]) Posture Evaluation Darrell Postural Classification System Darrell Postural Classifications Anterior/Posterior Vertebral Compression Test 2 Elbow Flexion Test 2 Comments Posture Comments Standing Posture: L shoulder and scapula elevated; reverse curvature at T3-T7, increased lordosis, R PSIS low, R ASIS high (R innominate posteriorly rotated). PT-OP-K Range of Motion Start: 10/21/18 21:14 Freq: Status: Active Protocol: Document 10/23/18 08:15 LRN (Rec: 10/23/18 15:03 LRN [id number]) Cervical Spine Range of Motion Cervical Spine Active Degrees Testing Position Sitting Flexion 56 Extension 45 Rotation Left 65 Rotation Right 50 Lumbar Spine Range of Motion Lumbar Spine Active Degrees Testing Position Standing Flexion 15 Extension 5 Lateral Flexion Left 10 Lateral Flexion Right 15 ROM Limitations Pain Comments Flex/Ext above is painfree range. Flex AROM tolerated is 32 deg' s. Rotation approximated is 30 deg's left, 45 deg's right. PT-OP-M Strength Start: 10/21/18 21:14 Freq: Status: Active Protocol: Document 10/23/18 08:15 LRN (Rec: 10/23/18 15:03 LRN [id number]) Trunk Strength Trunk Manual Muscle Testing Comments Deferred until next visit due to pain. Hip Strength Hip Manual Muscle Testing Right Flexion (L2) 3 Fair Extension (S1) 3 Fair Comments Hip strength is 5/5 except as noted above Left Extension (S1) 3 Fair Comments Hip strength is 5/5 except as noted above Knee Strength Knee Manual Muscle Testing Right Comments Generally 5/5. Left Comments Generally 3/5. PT-OP-Q Treatments Start: 10/21/18 21:14 Freq: Status: Active Protocol: Document 04/02/19 09:54 [facility] (Rec: 04/02/19 09:58 [facility] [email or web address]) Cardio Equipment Recumbent Elliptical ([email or web address]) Duration (Minutes) 5 Therapeutic Exercises Standing Exercises 6 Standing Exercise Name standing shoulder ER Reps/Minutes level 1 3 x 10 5 Standing Exercise Name standing pelvic tilts against the wall Reps/Minutes x 10 reps 4 Standing Exercise Name standing wall slides Reps/Minutes x 10 Comments did opp arm lifts today due to shoulder pain Other Exercises 9 Other Exercise Name seated shoulder johny Reps/Minutes x 4 Manual Therapy Treatment Soft Tissue Mobilization 1 Body Location suboccipital release and manual cervical stretches Body Position Supine Comments with MHP to the lower back PT-OP-R Modalities Start: 10/21/18 21:14 Freq: Status: Active Protocol: Document 04/02/19 09:58 [facility] (Rec: 04/02/19 09:59 [facility] [email or web address]) Ultrasound Therapy Treatment Left Posterior Shoulder Patient Position Sidelying Coupling Medium Ultrasound Gel Applicator Size (cm2) 5 Mode Setting Continuous Duty Cycle 100% Intensity Setting (w/cm2) 1.5 PT-OP-T Assessment and Plan Start: 10/21/18 21:14 Freq: Status: Active Protocol: Document 04/02/19 09:54 [facility] (Rec: 04/02/19 09:58 [facility] [email or web address]) Physical Therapy Assessment Assessment Summary Assessment difficult to do all established exercises today due to headache and inreased shoulder pain, head pain with any neck or low back flexion activities Physical Therapy Plan Frequency and Duration Frequency of Treatment 2x/Week Plan of Care Start Date 03/25/19 Plan of Care End Date 06/03/19 Next Visit Focus/Plan Next Note Type Treatment Note Next Visit Plan review all low back flexion stretches for work and continue to work on standing posture of avoidng increased lumbar lordosis
--- NOTE | 2019-05-25 08:43 | PT.OTN ---
Current Diagnoses Other spondylosis with myelopathy, lumbar region (05/21/19) Spondylosis without myelopathy or radiculopathy, cervical region (05/21/19) Spondylosis without myelopathy or radiculopathy, lumbar region (05/21/19) Spondylosis without myelopathy or radiculopathy, lumbosacral region (05/21/19) Other cervical disc displacement, unspecified cervical region (05/21/19) Physical Therapy Treatment Note PT-OP-A Visit Information Start: 10/21/18 21:14 Freq: Status: Active Protocol: Document 05/21/19 13:45 [facility] (Rec: 05/25/19 08:43 [facility] [email or web address]) Out-Patient Physical Therapy Visit Information Visit Information Visit Type Treatment Note Visit Start Time 13:45 Visit Stop Time 14:30 Total Visit Minutes 45 Visit Number 4 Number of INVENTORY CONTROL SUPERVISOR Visits 0 PT-OP-B Current Condition Start: 10/21/18 21:14 Freq: Status: Active Protocol: Document 10/23/18 08:15 LRN (Rec: 10/23/18 09:09 LRN [id number]) Current Condition History of Current Condition Onset Date 2 yrs ago Current Complaints Pain along the full back, especially R side in LB, and feet plantar. History of Current Condition Back pain off/on due to accidents in childhood. Has had injections in the back for the past 5 yrs with good results, but the last one was 2 yrs ago and wasn't helpful. Was carrying a sick girl up stairs (#90) and tweeked her back. She sought an injection then, but was told she had to do therapy before receiving another injection. Pain in feet throbbing. Prior Treatments and Tests Cortisone injections. Massage every 3-4 weeks, accupuncture . Heating pad every morning and sleeps on heating pad, hot tub, NSAIDs, Vicodine when really bad. Massage monthly and accupuncture when affordable. PRIOR RECORD REVIEW: Lumbosacral spondylosis with myelopathy, Lumbar Facet arthropathy, Cervical spondylosis, HNP - Cervical. Future Testing and Treatments Planned Would like to go to chiropractor. Treatment Goals Patient/Caregiver Goals Pt Goals: Strengthen core around areas damaged or hurt. Learn proper body mechanics. Eliminate the sharp shooting pain. Don't want to have to change life because of the pain. Wants to go to bed because tired, not hurt. Pain rated 1-2/10. 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 Baseline Function- Recreation/Hobbies Walked trails with friends. Current Functional Impairments (Reported) Functional Limitations- ADL's Independent. Must sit to put socks on and lean against shower to wash bottoms of feet . Functional Limitations- Recreation/ Can no longer walk trails Hobbies because of back pain and out of shape (SOB). Functional Limitations- Other Can't lift cat box genie, difficulty unloading pit worker power shovel & lifting boxes, and moving objects >30#. 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 PT-OP-C Subjective Start: 10/21/18 21:14 Freq: Status: Active Protocol: Document 05/21/19 13:45 [facility] (Rec: 05/25/19 08:43 [facility] [email or web address]) OP-PT Subjective Patient Comments Patient Comments Lilli reports she took a bad fall in [place] a [place] [employer]. She is sore all over and does not feel up to doing any of her exercises today PT-OP-F Manual Assessment Start: 10/21/18 21:14 Freq: Status: Active Protocol: Document 03/05/19 10:47 [facility] (Rec: 03/05/19 11:04 [facility] [email or web address]) Manual Assessments Soft Tissue Assessment Soft Tissue Mobility Assessment Increased tension in area of R paraspinals of L1-L5. More so today than it has been the past few sessions most likely due to the long car trip. Joint Mobility Assessment Joint Mobility Assessment Pain with PA mild pressure at spinous processes of entire thoracic and lumbar spine in the area of T3-T5 and L1-L5 with greatest tenderness at T5 & L3. PT-OP-H Neuro Start: 10/21/18 21:14 Freq: Status: Active Protocol: Document 10/23/18 08:15 LRN (Rec: 10/23/18 15:03 LRN [id number]) Sensation Evaluation Gross Sensation Gross Sensation WNL PT-OP-J Posture/Palpation/Skin Start: 10/21/18 21:14 Freq: Status: Active Protocol: Document 10/23/18 08:15 LRN (Rec: 10/23/18 15:03 LRN [id number]) Posture Evaluation Darrell Postural Classification System Darrell Postural Classifications Anterior/Posterior Vertebral Compression Test 2 Elbow Flexion Test 2 Comments Posture Comments Standing Posture: L shoulder and scapula elevated; reverse curvature at T3-T7, increased lordosis, R PSIS low, R ASIS high (R innominate posteriorly rotated). PT-OP-K Range of Motion Start: 10/21/18 21:14 Freq: Status: Active Protocol: Document 10/23/18 08:15 LRN (Rec: 10/23/18 15:03 LRN [id number]) Cervical Spine Range of Motion Cervical Spine Active Degrees Testing Position Sitting Flexion 56 Extension 45 Rotation Left 65 Rotation Right 50 Lumbar Spine Range of Motion Lumbar Spine Active Degrees Testing Position Standing Flexion 15 Extension 5 Lateral Flexion Left 10 Lateral Flexion Right 15 ROM Limitations Pain Comments Flex/Ext above is painfree range. Flex AROM tolerated is 32 deg' s. Rotation approximated is 30 deg's left, 45 deg's right. PT-OP-M Strength Start: 10/21/18 21:14 Freq: Status: Active Protocol: Document 10/23/18 08:15 LRN (Rec: 10/23/18 15:03 LRN [id number]) Trunk Strength Trunk Manual Muscle Testing Comments Deferred until next visit due to pain. Hip Strength Hip Manual Muscle Testing Right Flexion (L2) 3 Fair Extension (S1) 3 Fair Comments Hip strength is 5/5 except as noted above Left Extension (S1) 3 Fair Comments Hip strength is 5/5 except as noted above Knee Strength Knee Manual Muscle Testing Right Comments Generally 5/5. Left Comments Generally 3/5. PT-OP-Q Treatments Start: 10/21/18 21:14 Freq: Status: Active Protocol: Document 05/21/19 13:45 [facility] (Rec: 05/25/19 08:43 [facility] [email or web address]) Manual Therapy Treatment Soft Tissue Mobilization 3 Body Location manual cervcial stretches and UT release 2 Body Location prone MFR to thoracic and lumbar paraspinals 1 Body Location suboccipital release and manual cervical stretches Body Position Supine Comments with MHP to the lower back PT-OP-R Modalities Start: 10/21/18 21:14 Freq: Status: Active Protocol: Document 05/21/19 13:45 [facility] (Rec: 05/25/19 08:43 [facility] [email or web address]) Electric Stimulation Electric Stimulation Interferential Current (IFC) Body Location low back Duration (Minutes) 15 Contraction Type Normal Patient Position Hooklying Combined With Heat/Cold Hot Pack PT-OP-T Assessment and Plan Start: 10/21/18 21:14 Freq: Status: Active Protocol: Document 05/21/19 13:45 [facility] (Rec: 05/25/19 08:43 [facility] [email or web address]) Physical Therapy Assessment Assessment Summary Assessment Lilli was very guarded and sore today. No exercises attempted. Worked on releasing her thoracic and lumbar spine as well as stretch her cervical spine and suboccitpital release. She resonded well to [facility] with [facility] following manual therapy work. Physical Therapy Plan Frequency and Duration Frequency of Treatment 2x/Week Plan of Care Start Date 03/25/19 Plan of Care End Date 06/03/19 Therapeutic Interventions Therapeutic Interventions Aquatic Therapy Balance Training Home Exercise Program Joint Mobilizations Manual Therapy Neuromuscular Re-education Patient/Caregiver Education Self-Care/Home Management Soft Tissue Mobilization Taping Therapeutic Activities Therapeutic Exercises Modalities Cold Pack/Ice Massage Electric Stimulation Hot Packs Ultrasound Other Therapeutic Interventions Laser therapy Next Visit Focus/Plan Next Note Type Treatment Note Next Visit Plan return to stretches and core stabilization next visit if pt can tolerate
--- NOTE | 2019-06-30 13:38 | PT.OTN ---
Current Diagnoses Other spondylosis with myelopathy, lumbar region (06/25/19) Spondylosis without myelopathy or radiculopathy, cervical region (06/25/19) Spondylosis without myelopathy or radiculopathy, lumbar region (06/25/19) Spondylosis without myelopathy or radiculopathy, lumbosacral region (06/25/19) Other cervical disc displacement, unspecified cervical region (06/25/19) Physical Therapy Treatment Note PT-OP-A Visit Information Start: 10/21/18 21:14 Freq: Status: Active Protocol: Document 06/25/19 16:00 [facility] (Rec: 06/30/19 13:38 [facility] [email or web address]) Out-Patient Physical Therapy Visit Information Visit Information Visit Type Progress Note Visit Start Time 16:00 Visit Stop Time 16:35 Total Visit Minutes 30 Visit Number 3 Number of OIL PROGRAM COMPLIANCE SPECIALIST Visits 0 PT-OP-B Current Condition Start: 10/21/18 21:14 Freq: Status: Active Protocol: Document 10/23/18 08:15 LRN (Rec: 10/23/18 09:09 LRN [id number]) Current Condition History of Current Condition Onset Date 2 yrs ago Current Complaints Pain along the full back, especially R side in LB, and feet plantar. History of Current Condition Back pain off/on due to accidents in childhood. Has had injections in the back for the past 5 yrs with good results, but the last one was 2 yrs ago and wasn't helpful. Was carrying a sick girl up stairs (#90) and tweeked her back. She sought an injection then, but was told she had to do therapy before receiving another injection. Pain in feet throbbing. Prior Treatments and Tests Cortisone injections. Massage every 3-4 weeks, accupuncture . Heating pad every morning and sleeps on heating pad, hot tub, NSAIDs, Vicodine when really bad. Massage monthly and accupuncture when affordable. PRIOR RECORD REVIEW: Lumbosacral spondylosis with myelopathy, Lumbar Facet arthropathy, Cervical spondylosis, HNP - Cervical. Future Testing and Treatments Planned Would like to go to chiropractor. Treatment Goals Patient/Caregiver Goals Pt Goals: Strengthen core around areas damaged or hurt. Learn proper body mechanics. Eliminate the sharp shooting pain. Don't want to have to change life because of the pain. Wants to go to bed because tired, not hurt. Pain rated 1-2/10. 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 Baseline Function- Recreation/Hobbies Walked trails with friends. Current Functional Impairments (Reported) Functional Limitations- ADL's Independent. Must sit to put socks on and lean against shower to wash bottoms of feet . Functional Limitations- Recreation/ Can no longer walk trails Hobbies because of back pain and out of shape (SOB). 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 PT-OP-C Subjective Start: 10/21/18 21:14 Freq: Status: Active Protocol: Document 06/25/19 16:00 [facility] (Rec: 06/30/19 13:38 [facility] [email or web address]) OP-PT Subjective Patient Comments Patient Comments Lilli reports she has had a head ache and hurts all over today. There has been a lot of stress lately PT-OP-F Manual Assessment Start: 10/21/18 21:14 Freq: Status: Active Protocol: Document 03/05/19 10:47 [facility] (Rec: 03/05/19 11:04 [facility] [email or web address]) Manual Assessments Soft Tissue Assessment Soft Tissue Mobility Assessment Increased tension in area of R paraspinals of L1-L5. More so today than it has been the past few sessions most likely due to the long car trip. Joint Mobility Assessment Joint Mobility Assessment Pain with PA mild pressure at spinous processes of entire thoracic and lumbar spine in the area of T3-T5 and L1-L5 with greatest tenderness at T5 & L3. PT-OP-H Neuro Start: 10/21/18 21:14 Freq: Status: Active Protocol: Document 10/23/18 08:15 LRN (Rec: 10/23/18 15:03 LRN [id number]) Sensation Evaluation Gross Sensation Gross Sensation WNL PT-OP-J Posture/Palpation/Skin Start: 10/21/18 21:14 Freq: Status: Active Protocol: Document 10/23/18 08:15 LRN (Rec: 10/23/18 15:03 LRN [id number]) Posture Evaluation Darrell Postural Classification System Darrell Postural Classifications Anterior/Posterior Vertebral Compression Test 2 Elbow Flexion Test 2 Comments Posture Comments Standing Posture: L shoulder and scapula elevated; reverse curvature at T3-T7, increased lordosis, R PSIS low, R ASIS high (R innominate posteriorly rotated). PT-OP-K Range of Motion Start: 10/21/18 21:14 Freq: Status: Active Protocol: Document 10/23/18 08:15 LRN (Rec: 10/23/18 15:03 LRN [id number]) Cervical Spine Range of Motion Cervical Spine Active Degrees Testing Position Sitting Flexion 56 Extension 45 Rotation Left 65 Rotation Right 50 Lumbar Spine Range of Motion Lumbar Spine Active Degrees Testing Position Standing Flexion 15 Extension 5 Lateral Flexion Left 10 Lateral Flexion Right 15 ROM Limitations Pain Comments Flex/Ext above is painfree range. Flex AROM tolerated is 32 deg' s. Rotation approximated is 30 deg's left, 45 deg's right. PT-OP-M Strength Start: 10/21/18 21:14 Freq: Status: Active Protocol: Document 10/23/18 08:15 LRN (Rec: 10/23/18 15:03 LRN [id number]) Trunk Strength Trunk Manual Muscle Testing Comments Deferred until next visit due to pain. Hip Strength Hip Manual Muscle Testing Right Flexion (L2) 3 Fair Extension (S1) 3 Fair Comments Hip strength is 5/5 except as noted above Left Extension (S1) 3 Fair Comments Hip strength is 5/5 except as noted above Knee Strength Knee Manual Muscle Testing Right Comments Generally 5/5. Left Comments Generally 3/5. PT-OP-Q Treatments Start: 10/21/18 21:14 Freq: Status: Active Protocol: Document 06/25/19 16:00 [facility] (Rec: 06/30/19 13:38 [facility] [email or web address]) Manual Therapy Treatment Soft Tissue Mobilization 2 Body Location prone MFR to thoracic and lumbar paraspinals Manual Techniques 2 Type manual quadricep stretching 1 Type manual hip ER/IR stretch PT-OP-R Modalities Start: 10/21/18 21:14 Freq: Status: Active Protocol: Document 05/21/19 13:45 [facility] (Rec: 05/25/19 08:43 [facility] [email or web address]) Electric Stimulation Electric Stimulation Interferential Current (IFC) Body Location low back Duration (Minutes) 15 Contraction Type Normal Patient Position Hooklying Combined With Heat/Cold Hot Pack PT-OP-T Assessment and Plan Start: 10/21/18 21:14 Freq: Status: Active Protocol: Document 06/25/19 16:00 [facility] (Rec: 06/30/19 13:38 [facility] [email or web address]) Physical Therapy Assessment Assessment Summary Assessment I talked with Lilli today about her home program as she has been very stressed and hasn't been able to do her exercises. Work towards getting back to stretches again next visit. At this point I haven't seen a great deal of progress since her last report. Her fall in May seemed to have set her back and she presents with increased guarding and spasm. She would like to continue PT and will work on getting back to her stretches at home Physical Therapy Plan Frequency and Duration Frequency of Treatment 2x/Week Plan of Care Start Date 06/03/19 Plan of Care End Date 08/12/19 Therapeutic Interventions Therapeutic Interventions Aquatic Therapy Balance Training Home Exercise Program Joint Mobilizations Manual Therapy Neuromuscular Re-education Patient/Caregiver Education Self-Care/Home Management Soft Tissue Mobilization Taping Therapeutic Activities Therapeutic Exercises Modalities Cold Pack/Ice Massage Electric Stimulation Hot Packs Ultrasound Other Therapeutic Interventions Laser therapy Next Visit Focus/Plan Next Note Type Treatment Note Next Visit Plan return to stretches and core stabilization next visit if pt can tolerate
--- NOTE | 2019-06-30 13:39 | PT.OPPOC ---
Current Diagnoses Other spondylosis with myelopathy, lumbar region (06/25/19) Spondylosis without myelopathy or radiculopathy, cervical region (06/25/19) Spondylosis without myelopathy or radiculopathy, lumbar region (06/25/19) Spondylosis without myelopathy or radiculopathy, lumbosacral region (06/25/19) Other cervical disc displacement, unspecified cervical region (06/25/19) Provider Visit Care Team Role Provider Type Ga Newsome MD Primary Care Provider Physician Specialty: Family Practice Address: [address] [place] [id number] Email: [email or web address] Ezequiel Leavitt DO Attending Provider Physician Family Provider Specialty: Physiatry Pain Management Address: [address] [place] [address], [id number] Email: [email or web address] Plan Of Care PT-OP-T Assessment and Plan Start: 10/21/18 21:14 Freq: Status: Active Protocol: Document 06/25/19 16:00 [facility] (Rec: 06/30/19 13:38 [facility] [email or web address]) Physical Therapy Assessment Assessment Summary Assessment I talked with Lilli today about her home program as she has been very stressed and hasn't been able to do her exercises. Work towards getting back to stretches again next visit. At this point I haven't seen a great deal of progress since her last report. Her fall in May seemed to have set her back and she presents with increased guarding and spasm. She would like to continue PT and will work on getting back to her stretches at home Physical Therapy Plan Frequency and Duration Frequency of Treatment 2x/Week Plan of Care Start Date 06/03/19 Plan of Care End Date 08/12/19 Therapeutic Interventions Therapeutic Interventions Aquatic Therapy Balance Training Home Exercise Program Joint Mobilizations Manual Therapy Neuromuscular Re-education Patient/Caregiver Education Self-Care/Home Management Soft Tissue Mobilization Taping Therapeutic Activities Therapeutic Exercises Modalities Cold Pack/Ice Massage Electric Stimulation Hot Packs Ultrasound Other Therapeutic Interventions Laser therapy Next Visit Focus/Plan Next Note Type Treatment Note Next Visit Plan return to stretches and core stabilization next visit if pt can tolerate Plan of Care Dates Plan of Care Start Date 06/03/19 Plan of Care End Date 08/12/19 Please Sign and Return: I have reviewed this Plan of Care and certify that the skilled therapy services above are required to meet the patient?s needs. Physician Signature Date Printed Name and Credentials Clinical Instructor Signature Printed Name and Credentials
--- NOTE | 2019-07-13 11:25 | PT.OTN ---
Current Diagnoses Other spondylosis with myelopathy, lumbar region (07/13/19) Spondylosis without myelopathy or radiculopathy, cervical region (07/13/19) Spondylosis without myelopathy or radiculopathy, lumbar region (07/13/19) Spondylosis without myelopathy or radiculopathy, lumbosacral region (07/13/19) Other cervical disc displacement, unspecified cervical region (07/13/19) Physical Therapy Treatment Note PT-OP-A Visit Information Start: 10/21/18 21:14 Freq: Status: Active Protocol: Document 07/13/19 11:17 [facility] (Rec: 07/13/19 11:25 [facility] [email or web address]) Out-Patient Physical Therapy Visit Information Visit Information Visit Type Treatment Note Visit Start Time 10:00 Visit Stop Time 10:45 Total Visit Minutes 45 Visit Number 4 Number of [employer] Visits 0 PT-OP-B Current Condition Start: 10/21/18 21:14 Freq: Status: Active Protocol: Document 10/23/18 08:15 LRN (Rec: 10/23/18 09:09 LRN [id number]) Current Condition History of Current Condition Onset Date 2 yrs ago Current Complaints Pain along the full back, especially R side in LB, and feet plantar. History of Current Condition Back pain off/on due to accidents in childhood. Has had injections in the back for the past 5 yrs with good results, but the last one was 2 yrs ago and wasn't helpful. Was carrying a sick girl up stairs (#90) and tweeked her back. She sought an injection then, but was told she had to do therapy before receiving another injection. Pain in feet throbbing. Prior Treatments and Tests Cortisone injections. Massage every 3-4 weeks, accupuncture . Heating pad every morning and sleeps on heating pad, hot tub, NSAIDs, Vicodine when really bad. Massage monthly and accupuncture when affordable. PRIOR RECORD REVIEW: Lumbosacral spondylosis with myelopathy, Lumbar Facet arthropathy, Cervical spondylosis, HNP - Cervical. Future Testing and Treatments Planned Would like to go to chiropractor. Treatment Goals Patient/Caregiver Goals Pt Goals: Strengthen core around areas damaged or hurt. Learn proper body mechanics. Eliminate the sharp shooting pain. Don't want to have to change life because of the pain. Wants to go to bed because tired, not hurt. Pain rated 1-2/10. 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 Baseline Function- Recreation/Hobbies Walked trails with friends. Current Functional Impairments (Reported) Functional Limitations- ADL's Independent. Must sit to put socks on and lean against shower to wash bottoms of feet . Functional Limitations- Recreation/ Can no longer walk trails Hobbies because of back pain and out of shape (SOB). Functional Limitations- Other Can't lift cat box genie, difficulty unloading etl analyst & lifting boxes, and moving objects >30#. 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 PT-OP-C Subjective Start: 10/21/18 21:14 Freq: Status: Active Protocol: Document 07/13/19 11:17 [facility] (Rec: 07/13/19 11:25 [facility] [email or web address]) OP-PT Subjective Patient Comments Patient Comments pt reports she has gotten super tight and sore in her back with stress and she hasn' t been able to do her exercises. PT-OP-F Manual Assessment Start: 10/21/18 21:14 Freq: Status: Active Protocol: Document 03/05/19 10:47 AMH (Rec: 03/05/19 11:04 [facility] [email or web address]) Manual Assessments Soft Tissue Assessment Soft Tissue Mobility Assessment Increased tension in area of R paraspinals of L1-L5. More so today than it has been the past few sessions most likely due to the long car trip. Joint Mobility Assessment Joint Mobility Assessment Pain with PA mild pressure at spinous processes of entire thoracic and lumbar spine in the area of T3-T5 and L1-L5 with greatest tenderness at T5 & L3. PT-OP-H Neuro Start: 10/21/18 21:14 Freq: Status: Active Protocol: Document 10/23/18 08:15 LRN (Rec: 10/23/18 15:03 LRN [id number]) Sensation Evaluation Gross Sensation Gross Sensation WNL PT-OP-J Posture/Palpation/Skin Start: 10/21/18 21:14 Freq: Status: Active Protocol: Document 10/23/18 08:15 LRN (Rec: 10/23/18 15:03 LRN [id number]) Posture Evaluation Darrell Postural Classification System Darrell Postural Classifications Anterior/Posterior Vertebral Compression Test 2 Elbow Flexion Test 2 Comments Posture Comments Standing Posture: L shoulder and scapula elevated; reverse curvature at T3-T7, increased lordosis, R PSIS low, R ASIS high (R innominate posteriorly rotated). PT-OP-K Range of Motion Start: 10/21/18 21:14 Freq: Status: Active Protocol: Document 10/23/18 08:15 LRN (Rec: 10/23/18 15:03 LRN [id number]) Cervical Spine Range of Motion Cervical Spine Active Degrees Testing Position Sitting Flexion 56 Extension 45 Rotation Left 65 Rotation Right 50 Lumbar Spine Range of Motion Lumbar Spine Active Degrees Testing Position Standing Flexion 15 Extension 5 Lateral Flexion Left 10 Lateral Flexion Right 15 ROM Limitations Pain Comments Flex/Ext above is painfree range. Flex AROM tolerated is 32 deg' s. Rotation approximated is 30 deg's left, 45 deg's right. PT-OP-M Strength Start: 10/21/18 21:14 Freq: Status: Active Protocol: Document 10/23/18 08:15 LRN (Rec: 10/23/18 15:03 LRN [id number]) Trunk Strength Trunk Manual Muscle Testing Comments Deferred until next visit due to pain. Hip Strength Hip Manual Muscle Testing Right Flexion (L2) 3 Fair Extension (S1) 3 Fair Comments Hip strength is 5/5 except as noted above Left Extension (S1) 3 Fair Comments Hip strength is 5/5 except as noted above Knee Strength Knee Manual Muscle Testing Right Comments Generally 5/5. Left Comments Generally 3/5. PT-OP-Q Treatments Start: 10/21/18 21:14 Freq: Status: Active Protocol: Document 07/13/19 11:17 [facility] (Rec: 07/13/19 11:25 [facility] [email or web address]) Therapeutic Exercises Prone Exercises 2 Prone Exercise Name prone over the ball stretch Reps/Minutes 2 minutes Other Exercises 6 Other Exercise Name seated and standing forward bend for improved lumbar flexion 5 Other Exercise Name jillian pose with stretches to open up the left side 4 Other Exercise Name jillian pose 3 Other Exercise Name cat cow and wag the tail sidebends Reps/Minutes x 10 reps Manual Therapy Treatment Soft Tissue Mobilization 4 Body Location Quadratus lumborum release on the right 2 Body Location prone MFR to thoracic and lumbar paraspinals PT-OP-R Modalities Start: 10/21/18 21:14 Freq: Status: Active Protocol: Document 05/21/19 13:45 [facility] (Rec: 05/25/19 08:43 [facility] [email or web address]) Electric Stimulation Electric Stimulation Interferential Current (IFC) Body Location low back Duration (Minutes) 15 Contraction Type Normal Patient Position Hooklying Combined With Heat/Cold Hot Pack PT-OP-T Assessment and Plan Start: 10/21/18 21:14 Freq: Status: Active Protocol: Document 07/13/19 11:17 [facility] (Rec: 07/13/19 11:25 [facility] [email or web address]) Physical Therapy Assessment Assessment Summary Assessment discussed trying to take a few minutes a day for stretches and encouraged daily walking for stress relief. Lilli does have a appt for a additional epidural injection in August Physical Therapy Plan Frequency and Duration Frequency of Treatment 2x/Week Plan of Care Start Date 06/03/19 Plan of Care End Date 08/12/19 Therapeutic Interventions Therapeutic Interventions Aquatic Therapy,Balance Training,Home Exercise Program ,Joint Mobilizations,Manual Therapy,Neuromuscular Re- education,Patient/Caregiver Education,Self-Care/Home Management,Soft Tissue Mobilization,Taping, Therapeutic Activities, Therapeutic Exercises Modalities Cold Pack/Ice Massage,Electric Stimulation,Hot Packs, Ultrasound Other Therapeutic Interventions Laser therapy Next Visit Focus/Plan Next Note Type Treatment Note Next Visit Plan continue with low back stretches for flexion and gentle core stabilization
--- NOTE | 2019-11-05 15:10 | PT.OPDS ---
Current Diagnoses Other spondylosis with myelopathy, lumbar region (07/13/19) Spondylosis without myelopathy or radiculopathy, cervical region (07/13/19) Spondylosis without myelopathy or radiculopathy, lumbar region (07/13/19) Spondylosis without myelopathy or radiculopathy, lumbosacral region (07/13/19) Other cervical disc displacement, unspecified cervical region (07/13/19) Visit Care Team Role Provider Type Ga Newsome MD Primary Care Provider Physician Specialty: Family Practice Address: [address] [place] [address], [id number] Email: [email or web address] Ezequiel Leavitt DO Attending Provider Physician Family Provider Specialty: Physiatry Pain Management Address: [address] [place], [address] Email: [email or web address] Visit Number Visit Number 4 Discharge Summary PT-OP-B Current Condition Start: 10/21/18 21:14 Freq: Status: Active Protocol: Document 10/23/18 08:15 LRN (Rec: 10/23/18 09:09 LRN [id number]) Current Condition History of Current Condition Onset Date 2 yrs ago Current Complaints Pain along the full back, especially R side in LB, and feet plantar. History of Current Condition Back pain off/on due to accidents in childhood. Has had injections in the back for the past 5 yrs with good results, but the last one was 2 yrs ago and wasn't helpful. Was carrying a sick girl up stairs (#90) and tweeked her back. She sought an injection then, but was told she had to do therapy before receiving another injection. Pain in feet throbbing. Prior Treatments and Tests Cortisone injections. Massage every 3-4 weeks, accupuncture . Heating pad every morning and sleeps on heating pad, hot tub, NSAIDs, Vicodine when really bad. Massage monthly and accupuncture when affordable. PRIOR RECORD REVIEW: Lumbosacral spondylosis with myelopathy, Lumbar Facet arthropathy, Cervical spondylosis, HNP - Cervical. Future Testing and Treatments Planned Would like to go to chiropractor. Treatment Goals Patient/Caregiver Goals Pt Goals: Strengthen core around areas damaged or hurt. Learn proper body mechanics. Eliminate the sharp shooting pain. Don't want to have to change life because of the pain. Wants to go to bed because tired, not hurt. Pain rated 1-2/10. 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 Baseline Function- Recreation/Hobbies Walked trails with friends. Current Functional Impairments (Reported) Functional Limitations- ADL's Independent. Must sit to put socks on and lean against shower to wash bottoms of feet . Functional Limitations- Recreation/ Can no longer walk trails Hobbies because of back pain and out of shape (SOB). Functional Limitations- Other Can't lift cat box genie, difficulty unloading hoop expander & lifting boxes, and moving objects >30#. 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 PT-OP-C Subjective Start: 10/21/18 21:14 Freq: Status: Active Protocol: Document 07/13/19 11:17 [facility] (Rec: 07/13/19 11:25 [facility] [email or web address]) OP-PT Subjective Patient Comments Patient Comments pt reports she has gotten super tight and sore in her back with stress and she hasn' t been able to do her exercises. PT-OP-F Manual Assessment Start: 10/21/18 21:14 Freq: Status: Active Protocol: Document 03/05/19 10:47 [facility] (Rec: 03/05/19 11:04 [facility] [email or web address]) Manual Assessments Soft Tissue Assessment Soft Tissue Mobility Assessment Increased tension in area of R paraspinals of L1-L5. More so today than it has been the past few sessions most likely due to the long car trip. Joint Mobility Assessment Joint Mobility Assessment Pain with PA mild pressure at spinous processes of entire thoracic and lumbar spine in the area of T3-T5 and L1-L5 with greatest tenderness at T5 & L3. PT-OP-H Neuro Start: 10/21/18 21:14 Freq: Status: Active Protocol: Document 10/23/18 08:15 LRN (Rec: 10/23/18 15:03 LRN [id number]) Sensation Evaluation Gross Sensation Gross Sensation WNL PT-OP-J Posture/Palpation/Skin Start: 10/21/18 21:14 Freq: Status: Active Protocol: Document 10/23/18 08:15 LRN (Rec: 10/23/18 15:03 LRN [id number]) Posture Evaluation Darrell Postural Classification System Darrell Postural Classifications Anterior/Posterior Vertebral Compression Test 2 Elbow Flexion Test 2 Comments Posture Comments Standing Posture: L shoulder and scapula elevated; reverse curvature at T3-T7, increased lordosis, R PSIS low, R ASIS high (R innominate posteriorly rotated). PT-OP-K Range of Motion Start: 10/21/18 21:14 Freq: Status: Active Protocol: Document 10/23/18 08:15 LRN (Rec: 10/23/18 15:03 LRN [id number]) Cervical Spine Range of Motion Cervical Spine Active Degrees Testing Position Sitting Flexion 56 Extension 45 Rotation Left 65 Rotation Right 50 Lumbar Spine Range of Motion Lumbar Spine Active Degrees Testing Position Standing Flexion 15 Extension 5 Lateral Flexion Left 10 Lateral Flexion Right 15 ROM Limitations Pain Comments Flex/Ext above is painfree range. Flex AROM tolerated is 32 deg' s. Rotation approximated is 30 deg's left, 45 deg's right. PT-OP-M Strength Start: 10/21/18 21:14 Freq: Status: Active Protocol: Document 10/23/18 08:15 LRN (Rec: 10/23/18 15:03 LRN [id number]) Trunk Strength Trunk Manual Muscle Testing Comments Deferred until next visit due to pain. Hip Strength Hip Manual Muscle Testing Right Flexion (L2) 3 Fair Extension (S1) 3 Fair Comments Hip strength is 5/5 except as noted above Left Extension (S1) 3 Fair Comments Hip strength is 5/5 except as noted above Knee Strength Knee Manual Muscle Testing Right Comments Generally 5/5. Left Comments Generally 3/5. PT-OP-T Assessment and Plan Start: 10/21/18 21:14 Freq: Status: Active Protocol: Document 11/05/19 15:09 [facility] (Rec: 11/05/19 15:09 [facility] [email or web address]) Physical Therapy Plan Discharge Physical Therapy Discharge Reasons No Longer Attending PT Discharge Comments Pt has not been seen since July 2019. DC PT at this time
== END 2019-07-14 12:38 ==
LOC: PHYS 10:00
PROVIDERS: Family Provider Physical Medicine & Rehabilitation; PCP Family Medicine; Visit Provider Physical Medicine & Rehabilitation
DX: M47.817 Spondylosis without myelopathy or radiculopathy, lumbosacral region (principal); M50.20 Other cervical disc displacement, unspecified cervical region; M47.16 Other spondylosis with myelopathy, lumbar region; M47.816 Spondylosis without myelopathy or radiculopathy, lumbar region; M47.812 Spondylosis without myelopathy or radiculopathy, cervical region
CPT/HCPCS: 97014; 97035; 97110; 97140; 97162; G0283

== ENCOUNTER → 2019-08-06 12:55 | Outpatient (CLI) | payer OTHER, SELFPAY | PROVIDERS: PCP Family Medicine | DX: Z23 Encounter for immunization (principal) | CPT/HCPCS: 90471; 90686 ==

== ENCOUNTER 2019-09-17 12:06 | Outpatient (CLI) | payer OTHER, SELFPAY ==
[2019-09-17] VITALS (8 sets, daily range): BP systolic 124–149; BP diastolic 59–95; PULSE 72–89; RESP 16; TEMP 36.3; O2SAT 96–100
--- NOTE | 2019-09-17 12:07 | DI.RAD.S_ITS ---
PROCEDURE: PAIN L/S FACET INJ/BLK 1ST SHERRY COMPARISON: None. INDICATIONS: SPONDYLOSIS FINDINGS: 6 intraoperative fluoroscopy images demonstrated needle placement at L4, L5 and S1 bilaterally. IMPRESSION: Fluoroscopy for pain management. Dictated by: Tate Morales M.D. on 09/17/2019 at 14:43 Approved by: Tate Morales M.D. on 09/17/2019 at 14:44
[2019-09-17] MEDS: MIDAZOLAM 5 MG/5 ML VIAL IV (13:34)
[2019-09-17] MEDS: fentaNYL 100 MCG/2 ML INJ 50 MCG IV (13:34)
[2019-09-17] MEDS: IOPAMIDOL 15 ML VIAL 3 ML INJ (13:37)
[2019-09-17] MEDS: LIDOCAINE 1% 20 ML 10 ML INJ (13:41)
[2019-09-17] MEDS: BUPIVACAINE 0.5% (PF) VIAL 2 ML INJ (13:42)
[2019-09-17] MEDS: BETAMETHASONE 30 MG/5 ML MDV 12 MG INJ (13:43)
--- NOTE | 2019-09-17 13:58 | P.PCN_ITS ---
Procedures Date/Time Date of procedure: 09/17/19 Time of procedure: 13:58 General Procedure description: Procedure description: 1. FACET ARTHROPATHY PROCEDURES: 1. BILATERAL - L4, L5 and S1 MB BLOCKS PHYSICIAN: DO PEDRITO Sheldon Lilli is referred by for treatment of Bilateral Axial LBP. DESCRIPTION OF PROCEDURE Fluoroscopically guided, contrast-controlled bilateral L4, L5 and S1 medial branch blocks with 0.5cc of 0.5% Marcaine. Following review of allergy and review of potential side effects and complications, including, but not necessarily limited to, infection, allergic reaction, local tissue breakdown, nerve injury, paralysis, stroke and possible , the patient indicated that the patient understood and agreed to proceed. An informed consent document was signed by the patient, witnessed by a nurse, and placed in the patient's chart. After review of previous anaesthesic history and IV conscious sedation the patient was deemed safe to proceed with todays procedure with IV conscious se dation as ASA class II designation. Safety time-out was performed to confirm patient ID, procedure to be performed and site of procedure. IV sedation was accomplished with a combination of 5mg of Versed and 50mcg of Fentanyl was administered by the RN after DO order, titrated to patient comfort during the course of the procedure while the patient remained responsive to all verbal commands In the prone position, following sterile prep and drape of the lumbar region, the right L4, L5 and S1 anatomical location of the medial branch of the dorsal ramus was identified fluoroscopically. Subsequently an anesthetic skin wheal using 1% lidocaine solution was initiated at each of the anatomical spots. Subsequently then a 22-gauge 3.5-inch spinal needle was atraumatically introduced and advanced under fluoroscopic guidance at each of the corresponding sites at the right L4, L5 and S1 MB. After negative aspiration, 0.2 cc of Isovue 200 was injected, confirming placement without vascular or intrathecal uptake. Subsequently then 0.5 cc of 0.5% Marcaine solution was injected at each of the corresponding sites at the right L4, L5 and S1 medial branch locations. The identical procedure was replicated on the left. The patient tolerated the procedure well without signs or symptoms of complications prior to transfer to the recovery area continued monitoring without incident. Post-procedure, the patient was monitored initiating provocative activities to measure the amount of relief from block of the facetogenic pain. The patient reported a VAS of 7 prior to the procedure and a post-procedure VAS of 1. It has been a pleasure to assist in the diagnostic and therapeutic care of your patient. Total Fluoroscopy Time: 24.8 seconds Total Conscious Sedation Time: 24min POST OP INSTRUCTIONS The patient was provided with a Pain Log to complete over the next several hours and subsequent days prior to the patient's follow up with the ordering physician. If the patient has front maker relief to the solution applied, then they may be a candidate for medial branch rhizotomy. The patient is aware, was provided, once again, with a Pain Log and will follow up with the referring physician for review and clinical correlation Ezequiel Leavitt DO Complications: none
--- NOTE | 2019-09-17 14:00 | PC.NURSE ---
ACCEPTED CARE OF PT IN POST PROC AREA IN STABLE CONDITION.
--- NOTE | 2019-09-17 16:48 | PC.NURSE ---
Post procedure note: Patient medicated per providers orders. Tolerated procedure well. VSS and O2 Sat WNL on 2L/TEMPERATURE REGULATOR. Able to sit up and transfer to w/c without difficulties. Denies any pain or unusual numbness or tingling. Transferred for post procedure monitoring. Handoff report given to Vi Juan RN.
== END 2019-09-17 14:19 | disposition home or self-care (01) ==
LOC: RAD 12:06
PROVIDERS: PCP Family Medicine; Visit Provider Physical Medicine & Rehabilitation
DX: M47.817 Spondylosis without myelopathy or radiculopathy, lumbosacral region (principal); M47.816 Spondylosis without myelopathy or radiculopathy, lumbar region
CPT/HCPCS: 64493; 64494; 99152; J0702; J2250; J3010

== ENCOUNTER → 2019-09-30 11:52 | Outpatient (CLI) | payer OTHER, SELFPAY ==
--- NOTE | 2019-09-30 | DI.MG.S_ITS ---
BILATERAL DIGITAL SCREENING MAMMOGRAM 3D/2D WITH CAD: 09/30/2019 CLINICAL: Routine screening. Family history of breast cancer. Comparison is made to exams dated: 09/03/2018 mammogram, 07/26/2017 mammogram, and 07/10/2016 mammogram - [facility]. The tissue of both breasts is heterogeneously dense. This may lower the sensitivity of mammography. Current study was also evaluated with a Computer Aided Detection (CAD) system. There is a possible 0.7 cm oval equal density focal asymmetry in the right breast at 1 o'clock middle depth. No other significant masses, calcifications, or other findings are seen in either breast. IMPRESSION: INCOMPLETE: NEEDS ADDITIONAL IMAGING EVALUATION The possible 0.7 cm oval equal density focal asymmetry in the right breast is indeterminate. Additional views with possible ultrasound are recommended. This exam was interpreted at Station ID: [id number]. NOTE: For mammograms, a report in lay terms will be sent to the patient. Approximately 15% of breast malignancies will not be visualized mammographically. In the management of a palpable breast mass, a negative mammogram must not discourage biopsy of a clinically suspicious lesion. Electronically Signed By: Austin Bautista M.D. aty/:09/30/2019 12:31:48 letter sent: Additional Imaging Needed ACR BI-RADS Category 0: Incomplete [id number]
== END ==
PROVIDERS: PCP Family Medicine; Visit Provider Family Medicine
DX: Z12.31 Encounter for screening mammogram for malignant neoplasm of breast (principal); Z80.3 Family history of malignant neoplasm of breast
CPT/HCPCS: 77063; 77067

== ENCOUNTER → 2019-10-23 08:41 | Outpatient (CLI) | payer OTHER, SELFPAY ==
--- NOTE | 2019-10-23 08:43 | DI.MG.S_ITS ---
UNILATERAL RIGHT DIGITAL DIAGNOSTIC MAMMOGRAM 3D/2D WITH ADDITIONAL VIEWS: 10/23/2019 CLINICAL: Additional evaluation requested from prior study. Comparison is made to exams dated: 09/30/2019 mammogram, 09/03/2018 mammogram, and 07/26/2017 mammogram - [facility]. The tissue of right breast is heterogeneously dense. This may lower the sensitivity of mammography. The possible 0.7 cm oval equal density focal asymmetry in the right breast at 1 o'clock anterior depth is not seen on additional views. No other significant masses or calcifications are seen in the breast. IMPRESSION: The right breast asymmetry seen on the screening mammogram likely respresents superimposed fibroglandular tissue and is benign. There is no mammographic evidence of malignancy. A 1 year screening mammogram is recommended. This exam was interpreted at Station ID: [id number]. NOTE: For mammograms, a report in lay terms will be sent to the patient. Approximately 15% of breast malignancies will not be visualized mammographically. In the management of a palpable breast mass, a negative mammogram must not discourage biopsy of a clinically suspicious lesion. Electronically Signed By: Ama perry/:10/23/2019 09:20:30 letter sent: Normal Exam ACR BI-RADS Category 2: Benign Finding(s) 3342F
== END ==
PROVIDERS: PCP Family Medicine; Visit Provider Family Medicine
DX: R92.8 Other abnormal and inconclusive findings on diagnostic imaging of breast (principal); N64.89 Other specified disorders of breast
CPT/HCPCS: 77065; G0279

== ENCOUNTER → 2020-03-30 09:32 | Outpatient (CLI) | payer OTHER, SELFPAY ==
[2020-03-30 10:42] LABS: Add Manual Diff / Slide Review NO; Basophils Absolute Auto 100 /uL (0-100); Basophils Percent Auto 1.1 % (0-2); Eosinophils Absolute Auto 400 /uL (0-450); Eosinophils Percent Auto 4.6 % (2-4); Hemoglobin 12.9 g/dL (12.0-16.0); Lymphocytes Absolute Auto 3000 /uL (1100-4500); Lymphocytes Percent Auto 31.8 % (25-40); Mean Corpuscular HGB Conc 33.1 % (30-36); Mean Corpuscular Hemoglobin 27.8 PG (26-34); Mean Corpuscular Volume 84.1 fL (80-100); Monocytes Absolute Auto 700 /uL (0-900); Neutrophils Absolute Auto 5300 /uL (1500-7000); Neutrophils Percent Auto 55.5 % (50-75); Platelet Count 358 X10^3/uL (150-400); Red Blood Cell Count 4.64 X10^6/uL (4.0-5.2); Red Cell Distribution Width 13.7 % (11.6-14.8); White Blood Cell Count 9.5 X10^3/uL (4.5-11.0)
[2020-03-30 11:03] LABS: Alanine Aminotransferase 38 IU/L (<35); Albumin 4.5 g/dL (3.5-5.0); Albumin Globulin Ratio 1.3 (1.0-2.8); Alkaline Phosphatase 128 U/L (38-126); Aspartate Aminotransferase 49 IU/L (14-36); Bilirubin Total 0.3 mg/dL (0.2-1.3); Blood Urea Nitrogen 15 mg/dL (7-17); Calcium 9.7 mg/dL (8.4-10.2); Carbon Dioxide 24 mmol/L (22-32); Chloride 103 mmol/L (98-107); Cholesterol 164 mg/dL (140-199); Estimated Glomerular Filt Rate > 60.0 mL/min (>60); Globulin 3.4 g/dL (1.7-4.1); Glucose 106 mg/dL (70-100); HDL Cholesterol 34 mg/dL (40-60); HEMOLYSIS < 15 (0-50); LDL Cholesterol Calculated 93 mg/dL (<100); Potassium 4.2 mmol/L (3.4-5.1); Sodium 139 mmol/L (137-145); Total Protein 7.9 g/dL (6.3-8.2); Triglycerides 185 mg/dL (35-150)
[2020-03-30 12:07] LABS: Thyroid Stimulating Hormone 2.52 uIU/mL (0.47-4.68)
== END ==
PROVIDERS: PCP Family Medicine; Referring Provider Family Medicine; Visit Provider Family Medicine
DX: E03.9 Hypothyroidism, unspecified (principal)
CPT/HCPCS: 36415; 80053; 80061; 84443; 85025

== ENCOUNTER → 2020-04-18 14:56 | Outpatient (CLI) | payer OTHER, SELFPAY ==
--- NOTE | 2020-04-18 14:58 | DI.US.S_ITS ---
PROCEDURE: US ABDOMEN COMPLETE INDICATIONS: abnormal liver function tests TECHNIQUE: Real-time scanning was performed of the abdominal and retroperitoneal organs, with image documentation. COMPARISON: [facility], CT, ABDOMEN/PELVIS WITH CONTRAST, 01/13/2015, 7:21. FINDINGS: Liver: The liver demonstrates normal size. The liver demonstrates generalized increased echogenicity. This decreases ultrasound sensitivity for detection of hepatic masses. Gallbladder: No findings of gallstones or sludge are seen. The gallbladder wall is not thickened, measuring 3 mm or less. No specific pericholecystic fluid is seen. The sonographic Mcgee sign is negative. Biliary ducts: Intrahepatic bile ducts are non-dilated. Extrahepatic bile duct caliber measures 5 mm. Normal is 6-7 mm or less in diameter, or 10 mm or less post-cholecystectomy. Pancreas: Visualized portions of the pancreas are sonographically normal. Spleen: Spleen is normal in size and homogeneous in echotexture. Kidneys: Kidneys are normal in size and echotexture. Right kidney measures 10 cm long; left kidney measures 11.9 cm long. No hydronephrosis or nephrolithiasis. No solid masses. Aorta: Not well seen, obscured by overlying bowel gas. Iliacs: Not seen, obscured by overlying bowel gas. IVC: Intrahepatic inferior vena cava is patent. Miscellaneous: No free abdominal fluid. IMPRESSION: Enlarged, fatty liver. The gallbladder demonstrates a normal sonographic appearance. No biliary dilatation is seen. Dictated by: Daniel Richardson M.D. on 04/18/2020 at 16:19 Approved by: Daniel Richardson M.D. on 04/18/2020 at 16:20
[2020-04-18 16:19] LABS: Alanine Aminotransferase 36 IU/L (<35); Albumin 4.3 g/dL (3.5-5.0); Albumin Globulin Ratio 1.5 (1.0-2.8); Alkaline Phosphatase 122 U/L (38-126); Aspartate Aminotransferase 44 IU/L (14-36); Bilirubin Total 0.2 mg/dL (0.2-1.3); Bilirubin Unconjugated 0.2 mg/dL (0.0-1.1); Globulin 2.8 g/dL (1.7-4.1); HEMOLYSIS < 15 (0-50); Total Protein 7.1 g/dL (6.3-8.2)
== END ==
PROVIDERS: PCP Family Medicine; Referring Provider Family Medicine; Visit Provider Family Medicine
DX: R94.5 Abnormal results of liver function studies (principal); K76.0 Fatty (change of) liver, not elsewhere classified
CPT/HCPCS: 36415; 76700; 80076

== ENCOUNTER → 2022-06-13 14:01 | Outpatient (CLI) | payer OTHER, SELFPAY ==
--- NOTE | 2022-06-13 14:07 | DI.RAD.S_ITS ---
PROCEDURE: XR LUMBAR SPINE MIN 4V INDICATIONS: BACK PAIN TECHNIQUE: Five views of the lumbar spine. COMPARISON: [facility], [place], XR LUMBAR SPINE MIN 4V, 08/14/2018, 7:12. [facility], [place], L-SPINE 2-3 VIEWS, 12/19/2016, 9:12. FINDINGS: Bones: There are 5 [id number] lumbar type vertebral bodies. 5-6 mm of L5 on S1 anterolisthesis with moderate disc space height loss, progressed from 2018. There is also trace retrolisthesis of L4 on L5 and mild spondylosis at the other levels. L5 pars defects as before. Soft tissues: Overlying bowel gas pattern is normal. No suspicious soft tissue calcifications. IMPRESSION: Progressed L5 on S1 degenerative disc disease and anterolisthesis. Pars defect as before. Mild spondylosis at the other levels. Dictated by: Afshin York M.D. on 06/13/2022 at 14:57 Approved by: Afshin York M.D. on 06/13/2022 at 15:00
== END ==
PROVIDERS: Referring Provider Physical Medicine & Rehabilitation; Visit Provider Physical Medicine & Rehabilitation
DX: M51.17 Intervertebral disc disorders with radiculopathy, lumbosacral region; M43.17 Spondylolisthesis, lumbosacral region; M47.27 Other spondylosis with radiculopathy, lumbosacral region; Z20.822 Contact with and (suspected) exposure to COVID-19
CPT/HCPCS: 72110; 87635

== ENCOUNTER → 2022-06-13 15:49 | Outpatient (CLI) | payer OTHER, SELFPAY ==
[2022-06-13 16:59] LABS: COVID19 -Nasal RAPID Negative (Negative)
== END ==
PROVIDERS: Visit Provider Physical Medicine & Rehabilitation
DX: Z20.822 Contact with and (suspected) exposure to COVID-19 (principal)
CPT/HCPCS: 87635

== ENCOUNTER 2022-06-14 09:10 | Outpatient (CLI) | payer OTHER, SELFPAY ==
[2022-06-14] VITALS (11 sets, daily range): BP systolic 127–155; BP diastolic 77–98; PULSE 78–87; RESP 16–22; TEMP 36.3; O2SAT 97–100
--- NOTE | 2022-06-14 09:11 | DI.RAD.S_ITS ---
PROCEDURE: PAIN L/S TRANSFORAM INJECT SHERRY COMPARISON: None. INDICATIONS: SPONDYLOSIS FINDINGS: Access needle tips at the bilateral L5-S1 neural foramina. Injection of small amount of contrast material demonstrates axis needle tips are in the epidural space. IMPRESSION: Access needles at the bilateral L5-S1 neural foramina for transforaminal epidural steroid injection. Dictated by: Leda Florian MD, PhD on 06/14/2022 at 10:12 Approved by: Leda Florian MD, PhD on 06/14/2022 at 10:13
[2022-06-14] MEDS: MIDAZOLAM 2 MG/2 ML VIAL IV ×2 (10:30→10:36)
[2022-06-14] MEDS: DEXAMETHASONE 10 MG/ML VIAL 20 MG INJ (10:34)
[2022-06-14] MEDS: BETAMETHASONE 30 MG/5 ML MDV 12 MG INJ (10:34)
[2022-06-14] MEDS: IOPAMIDOL 15 ML VIAL 3 ML INJ (10:34)
[2022-06-14] MEDS: BUPIVACAINE 0.25% (PF) VIAL 2 ML INJ (10:34)
--- NOTE | 2022-06-14 10:55 | P.PCN_ITS ---
Date/Time/Diagnoses Date of procedure: 06/14/22 Time of procedure: 10:55 Pre-procedure diagnosis: 1. FORAMINAL STENOSIS WITH LE SYMPTOMS Post-procedure diagnosis: same Procedure Notes Procedure: 1. FLUOROSCOPICALLY GUIDED CONTRAST CONTROLLED TRANSFORAMINAL EPIDURAL STEROID INJECTION - BILATERAL L5/S1 TFESI Indications: Lilli is referred for treatment of Foraminal Stenosis with bilateral LE Symptoms Physician: Ezequiel Leavitt Total Fluoroscopy time (seconds): 21 Total sedation minutes: 18 Complications: none Procedure in detail & Post-procedure care: FINDINGS Foraminal Nerve Root Compression secondary to disc disease and facet hypertrophy DESCRIPTION OF PROCEDURE Following review of allergy and review of potential side effects and complications, including, but not necessarily limited to, infection, allergic reaction, local tissue breakdown, stroke, temporary or permanent nerve injury, paralysis, and possible , the patient indicated that the patient understood and agreed to proceed. An informed consent document was signed by the patient, witnessed by a nurse, and placed in the patient's chart. Additionally, other treatment options including medications, modalities, and physical therapy were reviewed with the patient. After review of previous anaesthesic history and IV conscious sedation the patient was deemed safe to proceed with today?s procedure with IV conscious sedation as ASA class II designation. Safety time-out was performed to confirm patient ID, procedure to be performed and site of procedure. IV sedation was accomplished with a combination of 4mg of Versed was administered by the RN after DO order, titrated to patient comfort during the course of the procedure while the patient remained responsive to all verbal commands. In the prone position following sterile prep and drape of the lumbar region, the right L5/S1 posterior neuroforamen was identified fluoroscopically. The skin was anesthetized via a 25-gauge 1.5-inch needle with 1% lidocaine solution. At this point, a 25-gauge 3.5-inch spinal needle was atraumatically introduced and advanced under fluoroscopic guidance through the posterior right L5/S1 neuroforamen to approximately the anterior aspect of the canal. Depth was confirmed on lateral view. Following negative aspiration, injection of approximately 1.5cc of Isovue 200 under live fluoroscopy in the AP view confirmed excellent flow along the nerve root, into the epidural space without vascular or intrathecal uptake observed Radiological data, including multiple fluoroscopic views of the lumbosacral spine, reveal a spinal needle at the right L5/S1 posterior neuroforamen. Subsequent views show flow of contrast material flowing superiorly and inferiorly along the nerve root confirming epidural flow. Subsequently, a test dose of 1.5cc of 1% lidocaine solution was administered and patient was observed for two minutes for signs or symptoms of complications, including abdominal pain, shortness of breath, bilateral upper or lower extremi ty weakness, nausea and vomiting, prior to steroid injection. At this point, a total of 3cc or 20mg of dexamethasone and 6mg betamethasone was injected without incident. Attention was then refocused to the left L5/S1 level where the identical procedure was replicated. The procedure tolerated the procedure well without signs or symptoms of complications prior to transfer to the recovery area continued monitoring without incident. The patient was then transferred to the recovery area where they were observed for an appropriate time after the injection. The patient reported a VAS score of 7 prior to the procedure and a post-procedure VAS of 0. POST OP INSTRUCTIONS The patient was provided a Pain Log to continue to record their response to the target-specific procedure prior to follow-up visit with their referring physician. Additionally, specific post-injection care instructions and a contact number to our office were provided if concerns arise regarding possible complications associated with the procedure are suspected.
== END 2022-06-14 11:18 | disposition home or self-care (01) ==
LOC: RAD 09:10
PROVIDERS: Referring Provider Physical Medicine & Rehabilitation; Visit Provider Physical Medicine & Rehabilitation
DX: M48.07 Spinal stenosis, lumbosacral region (principal); M51.17 Intervertebral disc disorders with radiculopathy, lumbosacral region
CPT/HCPCS: 64483; 99152; J0702; J1100; J2250

== ENCOUNTER → 2022-08-13 12:57 | Outpatient (CLI) | payer OTHER, SELFPAY ==
[2022-08-13 17:28] LABS: COVID19 -Nasal RAPID Negative (Negative)
== END ==
PROVIDERS: Visit Provider Surgery
DX: Z20.822 Contact with and (suspected) exposure to COVID-19 (principal); Z01.812 Encounter for preprocedural laboratory examination
CPT/HCPCS: 87635; C9803

== ENCOUNTER 2022-08-14 08:10 | Day surgery (SDC) | payer OTHER, SELFPAY ==
[2022-08-14 08:25] VITALS: BP 167/80; PULSE 83; RESP 16; TEMP 36.4; O2SAT 98; BMI 30.4
[2022-08-14] MEDS: LACTATED RINGERS 1,000 ML 200 ML IV (08:59)
--- NOTE | 2022-08-14 09:19 | PM.HP.1 ---
History of Present Illness History of Present Illness Date Patient Seen: 08/14/22 Time Patient Seen: 09:19 Chief complaint: Colonoscopy Narrative: The patient presents for colorectal screening. She has a personal history of colonic polyps. Most recent colonoscopy 2016 was normal. No personal or family history of colon cancer. She has hemorrhoids and has occasional bright red blood per rectum painless. She has chronic right lower quadrant pain. No other new gastrointestinal symptoms. Patient History Medical History Acne (1982) ADHD (attention deficit hyperactivity disorder) (09/05/05) Allergic rhinitis Anemia Bipolar disorder (01/01/06) Chicken pox (1975) Chronic back pain (1987) Chronic headaches Colon polyps (01/11/11) Female hypogonadism Fibroids GERD (gastroesophageal reflux disease) Hayfever History of heavy periods Hypothyroidism (06/19/07) Intractable chronic migraine without aura and without status migrainosus (1981) Irregular periods/menstrual cycles Low testosterone level in female (10/15/07) Lumbar radiculopathy Lumbar spine pain Obstructive sleep apnea of adult (~09/2018) Painful menstrual periods Pancreatitis Recurrent sinusitis Rosacea (2000) Sleep apnea (08/12/97) Spondylolisthesis at L5-S1 level Throat infection Urinary incontinence Surgical History Anesthesia complication History of oral surgery History of stress incontinence procedure using tension free vaginal tape (04/2006) Status post colonoscopy Status post laparoscopy (09/16/00) Status post tonsillectomy and adenoidectomy (10/18/03) Status post vaginal hysterectomy (07/2005) Family & Social History Family History Father Alcoholism Grandfather COPD (chronic obstructive pulmonary disease) Hx of CABG Congestive heart failure Mother Age: 79 Hypertension Arthritis Osteoporosis Depression Post-polio syndrome Grandmother Alcoholism Breast cancer Grandmother Heart disease Family/Other Marfan's syndrome Sudden Social History: household members spouse lives independently Yes caregiver/support person No Tobacco & Substance use: Smoking Status Never smoker alcohol intake never alcohol intake frequency 3 or more drinks per day Substance Use Type does not use Meds Home Medications and Allergies Home Medications Medication Instructions Recorded Confirmed Type cetirizine 10 mg tablet 10 mg PO QDAYP PRN Allergy 10/18/17 10/11/22 History Symptoms ##0 methylphenidate HCl 20 mg 20 mg OR BID #180 tabs 11/07/17 08/14/22 Rx tablet,extended release aripiprazole 2 mg tablet (Abilify) 2 mg PO QDAY #30 tabs 11/11/17 08/14/22 Rx lamotrigine 200 mg tablet 200 mg PO Q DAY #90 tabs 11/11/17 08/14/22 Rx (Lamictal) fluticasone propionate 50 2 spray intranasal DAILY #19.8 01/29/19 08/14/22 Rx mcg/actuation nasal grams spray,suspension (Flonase Allergy Relief) methylphenidate HCl 10 mg tablet 10 mg PO DAILY #30 tabs 01/29/19 08/14/22 Rx alprazolam 0.5 mg tablet (Xanax) 1 mg PO ONCE PRN anxiety #30 tabs 04/06/19 08/14/22 Rx Oral Appliance for Mild LOUIE #1 ea 04/23/19 08/13/22 Rx syringe with needle, safety 3 mL #12 units 05/13/19 08/13/22 Rx 22 gauge x 1 1/2 (Monoject Safety Syringes) ivermectin 1 % topical cream 1 applictn topical DAILY #45 grams 09/23/19 08/14/22 Rx (Soolantra) sulfacetamide sodium 10 % topical See Rx Instructions topical .qd 09/23/19 08/14/22 Rx cleanser #360 mL omeprazole 20 mg capsule,delayed See Rx Instructions .Route 10/29/19 08/14/22 Rx release .COMPLEX #180 caps naratriptan 2.5 mg tablet See Rx Instructions .Route 01/06/20 08/14/22 Rx .COMPLEX #12 tabs testosterone cypionate 200 mg/mL See Rx Instructions .Route 01/07/20 08/14/22 Rx intramuscular oil .COMPLEX #10 mL prhznbmeoe-bxggsnt-tnalcwpp 50 1 cap PO SEE INSTRUCTIONS #60 caps 01/25/20 08/14/22 Rx mg-325 mg-40 mg capsule verapamil 240 mg tablet,extended 240 mg PO QDAY #90 tabs 02/01/20 08/14/22 Rx release epinephrine 0.3 mg/0.3 mL 0.3 mg (0.3 mL) IM SEE 02/29/20 08/14/22 Rx injection, auto-injector (EpiPen INSTRUCTIONS #1 kit 2-Marshal) meloxicam 15 mg tablet 15 mg PO DAILY #90 tabs 02/29/20 08/14/22 Rx azelastine 137 mcg (0.1 %) nasal See Rx Instructions intranasal BID 04/19/20 08/14/22 Rx spray aerosol #30 mL duloxetine 60 mg capsule,delayed 60 mg PO DAILY #180 caps 04/19/20 08/14/22 Rx release levothyroxine 75 mcg tablet See Rx Instructions .Route 04/19/20 08/14/22 Rx .COMPLEX #90 tabs erenumab-aooe 140 mg/mL 140 mg SUBCUT QMONTH #1 mL 06/17/20 08/14/22 Rx subcutaneous auto-injector (Aimovig Autoinjector) diphenoxylate-atropine 2.5 1 tab PO Q6-8H PRN diarrhea #30 07/03/20 08/14/22 Rx mg-0.025 mg tablet tabs eletriptan 40 mg tablet 40 mg PO Q2-4H PRN migraine 07/03/20 08/14/22 Rx headache #12 tabs estradiol 1 mg tablet See Rx Instructions .Route 07/03/20 08/14/22 Rx .COMPLEX #90 tabs gemfibrozil 600 mg tablet See Rx Instructions .Route 07/03/20 08/14/22 Rx .COMPLEX #60 tabs prochlorperazine maleate 10 mg 10 mg PO Q6HP PRN nausea and 07/03/20 08/14/22 Rx tablet vomiting #100 tabs pseudoephedrine HCl 120 mg 120 mg PO Q12HP PRN nasal 07/03/20 08/14/22 Rx tablet,extended release (12 Hour congestion #100 tabs Decongestant ER) zolpidem 10 mg tablet (Ambien) 10 mg PO BEDTIME PRN insomnia #10 07/03/20 08/14/22 Rx tabs albuterol sulfate 90 mcg/actuation 2 puff inhalation Q6H PRN 07/04/20 08/14/22 Rx aerosol inhaler shortness of breath or wheezing #8.5 grams diazepam 5 mg tablet (Valium) 5 mg PO BID-TID PRN muscle spasm 09/28/20 08/14/22 Rx #100 tabs hydrocodone 5 mg-acetaminophen 325 See Rx Instructions PO Q6H PRN 09/28/20 08/14/22 Rx mg tablet pain #90 tabs bupropion HCl 150 mg tablet,12 hr 150 mg PO BEDTIME 06/13/22 08/14/22 History sustained-release ipratropium bromide 42 mcg (0.06 2 spray intranasal ONCE 06/13/22 08/14/22 History %) nasal spray naloxone 4 mg/actuation nasal spray ea intranasal 06/13/22 08/13/22 History sodium sul 1.479 gram-potas ch See Rx Instructions PO PER PKG DIR 08/13/22 08/14/22 Rx 0.188 gram-magnes sul 0.225 gram #24 tabs tablet (Sutab) topiramate 50 mg tablet 50 mg PO TID 08/13/22 08/14/22 History Allergies Allergy/AdvReac Type Severity Reaction Status Date / Time lavender (Lavandula Allergy Severe rash, Verified 08/14/22 08:42 angustifolia) anaphalixis [LAVENDER] elisabeth Allergy Severe Swelling Verified 08/14/22 08:42 of Lip/Tongue/Throat papaya Allergy Severe Swelling Verified 08/14/22 08:42 of Lip/Tongue/Throat Sulfa (Sulfonamide Allergy Severe HIVES Verified 08/14/22 08:42 Antibiotics) [SULFA (SULFONAMIDE ANTIBIOTICS)] telithromycin [TELITHROMYCIN] Allergy Severe HIVES Verified 08/14/22 08:42 WALNUTS Allergy Severe Swelling Uncoded 08/14/22 08:42 of Lip/Tongue/Throat Exam Vital Signs (past 8 hours): - 08/14/22 08:25 Temperature 97.6 F Pulse Rate 83 Respiratory Rate 16 Blood Pressure 167/80 H Pulse Oximetry 98 Oxygen Delivery Method Room Air Oxygen Delivery Method Room Air Narrative Exam Narrative: General adult woman oriented no distress Abdomen is soft nontender nondistended Assessment & Plan Assessment & Plan narrative: The patient requires colorectal screening and colonoscopy is recommended. Technical details were discussed. Risks, benefits, alternatives explained. Risks including but not limited to myocardial infarction, aspiration, bleeding, pain, missed lesion, incomplete examination, need for further radiographic studies, colonic perforation, and need for major abdominal surgery were discussed. All questions were answered to their satisfaction, and they are in agreement with this plan. Time Spent With Patient Critical Care time: I spent a total of [] minutes of critical care time on this patient's care today; this time is exclusive of procedural time.
[2022-08-14] MEDS: ONDANSETRON 4 MG/2 ML INJ IV (09:22)
[2022-08-14] MEDS: MIDAZOLAM 5 MG/5 ML VIAL 10 MG IV (09:40)
[2022-08-14] MEDS: fentaNYL 100 MCG/2 ML INJ 300 MCG IV (09:40)
--- NOTE | 2022-08-14 09:48 | P.OP.COLON_ITS ---
Operative Date/Time/Diagnoses Date of procedure: 08/14/22 Time of procedure: 09:48 Pre-op diagnosis: personal history of colonic polyps Post-op diagnosis: same Procedure & Clinicians Study performed: Colonoscopy Same procedure as scheduled: Yes Indications: Personal history of colonic polyps. Screening Surgeon: Govind Peña Procedure Notes Procedure in detail: Medications: Conscious sedation using 10 mg IV midazolam and 300 mcg IV of fent anyl The history and physical was performed/updated and the patient is ASA class is 2. The procedure was discussed in detail with the patient. Potential risks complications including infection, bleeding, missed diagnosis, perforation, need for surgery, and were explained. Their questions were answered and informed consent was obtained. Patient was brought to the procedure room and placed standard monitoring equipment. The patient's vital signs were monitored continuously throughout the entire procedure. Prior to starting time-out was performed. The patient was placed in the left lateral recumbent position. Procedural sedation was administered. Examination began with a thorough inspection of the perianal area there was no evidence of fissures, fistulae, external hemorrhoids or cutaneous malignancy. The colonoscopy scope was then placed into the anal canal and was advanced to the cecum, which was identified by the ileocecal valve, the appendiceal orifice and the confluence of the taenia. The scope was then slowly withdrawn examining colon thoroughly in all directions, irrigating it of any residual stool. FINDINGS 1. No masses or polyps 2. Normal healthy colon 3. Internal hemorrhoids The patient tolerated the procedure well. They will be discharged once criteria are met. The prep was of good/excellent quality. The withdrawl time was 6 minutes. The sedation time was 23 minutes. Specimen(s): none sent Complications: none Impression: Normal colonoscopy Post-procedure Recommendations: Colonoscopy in 10 years Disposition: same day surgery
[2022-08-14 09:51] VITALS: BP 145/75; PULSE 77; RESP 12; TEMP 36.5; O2SAT 96
[2022-08-14 09:58] VITALS: BP 141/68; PULSE 81; RESP 16; O2SAT 94
[2022-08-14 10:00] VITALS: BP 142/79; PULSE 85; RESP 18; O2SAT 96
[2022-08-14 10:11] VITALS: BP 123/78; PULSE 75; RESP 16; TEMP 36.6; O2SAT 96
== END 2022-08-14 10:16 | disposition home or self-care (01) ==
PROVIDERS: Referring Provider Surgery; Visit Provider Surgery
PROC: 0DJD8ZZ Inspection of Lower Intestinal Tract, Via Natural or Artificial Opening Endoscopic (ICD-10-PCS; CPT 45378; principal; 2022-08-14 09:15)
DX: Z12.11 Encounter for screening for malignant neoplasm of colon (principal); Z86.010 Personal history of colon polyps; K64.8 Other hemorrhoids
CPT/HCPCS: 45378; 99152; J2250; J2405; J3010